=== PATIENT | male | born 1955 | race African-American/Black ===

== ENCOUNTER 2017-10-07 22:11 | Inpatient (IN) | payer OTHER, MEDICAID, MEDICARE ==
[2017-10-07] MEDS ORDERED: SODIUM CHLORIDE 0.9% FLUSH 10 ML FLUSH IVF (23:30)
[2017-10-08] MEDS: SODIUM CHLOR 0.9% 1000 ML INJ 1,000 ML IV ×3 (00:19→23:25)
[2017-10-08] MEDS: ACETAMINOPHEN 325 MG TAB PO ×2 (00:20→10:26)
[2017-10-08] MEDS: cefTRIAXone INJ 1,000 MG in SODIUM CHLORIDE 0.9% INJ 100 ML IV (00:20)
[2017-10-08 00:34] LABS: AUTOMATED NEUTROPHIL # 5.5 TH/MM3 (1.8-7.7); BASOPHIL % 0.4 % (0.0-2.0); EOSINOPHIL % 0.2 % (0.0-4.0); HEMATOCRIT 43.3 % (39.0-51.0); HEMO FLAGS DIFF FINAL; LYMPH % 11.7 % (9.0-44.0); LYMPHOCYTE # 0.9 TH/MM3 (1.0-4.8); MEAN CORPUSCULAR HEMOGLOBIN 28.5 PG (27.0-34.0); MEAN CORPUSCULAR HGB CONC 32.4 % (32.0-36.0); MEAN PLATELET VOLUME 9.7 FL (7.0-11.0); MONOCYTE # 0.9 TH/MM3 (0-0.9); NEUT % 75.7 % (16.0-70.0); PLATELET COUNT 150 TH/MM3 (150-450); RED BLOOD COUNT 4.92 MIL/MM3 (4.50-5.90); WHITE BLOOD COUNT 7.3 TH/MM3 (4.0-11.0)
[2017-10-08 00:45] LABS: ANION GAP 6 MEQ/L (5-15); BICARBONATE 27.9 MEQ/L (21.0-32.0); BLOOD UREA NITROGEN 18 MG/DL (7-18); CALCIUM 8.5 MG/DL (8.5-10.1); CHLORIDE 104 MEQ/L (98-107); GLOMERULAR FILTRATION RATE 30 ML/MIN (>89); GLUCOSE,RANDOM 102 MG/DL (74-106); POTASSIUM 3.9 MEQ/L (3.5-5.1); SODIUM (NA) 138 MEQ/L (136-145)
[2017-10-08] MEDS: AZITHROMYCIN INJ 500 MG in SODIUM CHLOR 0.9% 250 ML INJ 250 ML IV (01:25)
[2017-10-08] MEDS ORDERED: SENNOSIDES 8.6 MG TAB PO (01:30)
[2017-10-08] MEDS ORDERED: BISACODYL 10 MG SUPP RECTAL (01:30)
[2017-10-08] MEDS ORDERED: RESP: ALBUTEROL 2.5 MG/IPRATROPIUM 0.5 MG NEB (PRN) NEB (01:30)
[2017-10-08] MEDS ORDERED: SODIUM CHLORIDE 0.9% FLUSH 10 ML FLUSH IV FLUSH (01:30)
[2017-10-08] MEDS ORDERED: ONDANSETRON HCL 4 MG/2 ML VIAL IVP (01:30)
[2017-10-08] MEDS ORDERED: NALOXONE HCL 0.4 MG/ML AMP IV PUSH (01:30)
[2017-10-08] MEDS: OSELTAMIVIR PHOSPHATE 75 MG CAP PO ×3 (01:56→19:47)
[2017-10-08] MEDS: RESP: ALBUTEROL 2.5 MG/IPRATROPIUM 0.5 MG NEB (SCH) NEB ×4 (04:40→21:46)
[2017-10-08] MEDS: SODIUM CHLORIDE 0.9% FLUSH 10 ML FLUSH IV FLUSH ×2 (08:46→19:46)
[2017-10-08] MEDS: ATENOLOL 25 MG TAB PO (08:46)
[2017-10-08] MEDS: LISINOPRIL 10 MG TAB PO (08:46)
[2017-10-08] MEDS: METHOCARBAMOL 500 MG TAB PO ×4 (08:46→19:47)
[2017-10-08] MEDS ORDERED: BACLOFEN 10 MG TAB PO (09:00)
[2017-10-08] MEDS ORDERED: AZITHROMYCIN 250 MG TAB PO (09:15)
[2017-10-08] MEDS ORDERED: AZITHROMYCIN INJ 500 MG in SODIUM CHLOR 0.9% 250 ML INJ 250 ML IV (09:15)
[2017-10-08] MEDS: LINEZOLID 600 MG PREMIX 300 ML IV ×2 (10:27→19:46)
[2017-10-08] MEDS: traMADol HCL 50 MG TAB PO ×2 (10:27→18:43)
[2017-10-08] MEDS: AZITHROMYCIN INJ 250 MG in SODIUM CHLOR 0.9% 250 ML INJ 250 ML IV (10:28)
[2017-10-08] MEDS ORDERED: LINEZOLID 600 MG TAB PO ×2 (13:00→21:00)
[2017-10-08] MEDS: HEPARIN SODIUM - SQ 10,000 UNITS/ML VIAL SQ (19:47)
[2017-10-09] MEDS ORDERED: cefTRIAXone INJ 1,000 MG in SODIUM CHLORIDE 0.9% INJ 100 ML IV (00:30)
[2017-10-09] MEDS ORDERED: AZITHROMYCIN INJ 250 MG in SODIUM CHLOR 0.9% 250 ML INJ 250 ML IV (01:30)
[2017-10-09] MEDS: RESP: ALBUTEROL 2.5 MG/IPRATROPIUM 0.5 MG NEB (SCH) NEB ×4 (04:01→21:54)
[2017-10-09 08:17] LABS: AUTOMATED NEUTROPHIL # 4.5 TH/MM3 (1.8-7.7); BASOPHIL % 0.4 % (0.0-2.0); EOSINOPHIL % 0.3 % (0.0-4.0); HEMATOCRIT 36.9 % (39.0-51.0); HEMO FLAGS DIFF FINAL; HEMOGLOBIN 11.9 GM/DL (13.0-17.0); LYMPH % 20.9 % (9.0-44.0); LYMPHOCYTE # 1.4 TH/MM3 (1.0-4.8); MEAN CELL VOLUME 88.1 FL (80.0-100.0); MEAN CORPUSCULAR HEMOGLOBIN 28.3 PG (27.0-34.0); MEAN CORPUSCULAR HGB CONC 32.1 % (32.0-36.0); MEAN PLATELET VOLUME 9.7 FL (7.0-11.0); MONO % 10.4 % (0.0-8.0); MONOCYTE # 0.7 TH/MM3 (0-0.9); PLATELET COUNT 116 TH/MM3 (150-450); RED BLOOD COUNT 4.19 MIL/MM3 (4.50-5.90); RED CELL DISTRIBUTION WIDTH 14.2 % (11.6-17.2); WHITE BLOOD COUNT 6.6 TH/MM3 (4.0-11.0)
[2017-10-09 08:54] LABS: ANION GAP 8 MEQ/L (5-15); BICARBONATE 24.7 MEQ/L (21.0-32.0); BLOOD UREA NITROGEN 15 MG/DL (7-18); CALCIUM 7.9 MG/DL (8.5-10.1); CHLORIDE 106 MEQ/L (98-107); CREATININE 2.08 MG/DL (0.60-1.30); GLOMERULAR FILTRATION RATE 39 ML/MIN (>89); GLUCOSE,RANDOM 80 MG/DL (74-106); POTASSIUM 3.6 MEQ/L (3.5-5.1); SODIUM (NA) 139 MEQ/L (136-145)
[2017-10-09] MEDS: SODIUM CHLORIDE 0.9% FLUSH 10 ML FLUSH IV FLUSH ×2 (09:00→21:52)
[2017-10-09] MEDS ORDERED: AZITHROMYCIN 250 MG TAB PO (09:00)
[2017-10-09] MEDS ORDERED: Vancomycin Consult Pharmacy 1 EA OTHER (09:15)
[2017-10-09] MEDS: METHOCARBAMOL 500 MG TAB PO ×4 (10:12→21:47)
[2017-10-09] MEDS: HEPARIN SODIUM - SQ 10,000 UNITS/ML VIAL SQ ×2 (10:12→21:48)
[2017-10-09] MEDS: LISINOPRIL 10 MG TAB PO (10:12)
[2017-10-09] MEDS: OSELTAMIVIR PHOSPHATE 75 MG CAP PO ×2 (10:12→21:47)
[2017-10-09] MEDS: AZITHROMYCIN INJ 500 MG in SODIUM CHLOR 0.9% 250 ML INJ 250 ML IV (10:12)
[2017-10-09] MEDS: SODIUM CHLOR 0.9% 1000 ML INJ 1,000 ML IV (10:13)
[2017-10-09] MEDS: ATENOLOL 25 MG TAB PO (10:13)
[2017-10-09] MEDS: cefTRIAXone INJ 2,000 MG in SODIUM CHLORIDE 0.9% INJ 100 ML IV (18:00)
[2017-10-09] MEDS ORDERED: LINEZOLID 600 MG PREMIX 300 ML IV (21:00)
[2017-10-09] MEDS: ACETAMINOPHEN/HYDROcodone 325 MG/5 MG TAB PO (21:51)
[2017-10-10] MEDS: RESP: ALBUTEROL 2.5 MG/IPRATROPIUM 0.5 MG NEB (SCH) NEB ×4 (03:03→20:54)
[2017-10-10] MEDS: SODIUM CHLOR 0.9% 1000 ML INJ 1,000 ML IV (03:15)
[2017-10-10] MEDS: METHOCARBAMOL 500 MG TAB PO ×4 (09:08→21:10)
[2017-10-10] MEDS: OSELTAMIVIR PHOSPHATE 75 MG CAP PO ×2 (09:08→21:10)
[2017-10-10] MEDS: ACETAMINOPHEN/HYDROcodone 325 MG/5 MG TAB PO ×2 (09:09→21:17)
[2017-10-10] MEDS: ATENOLOL 25 MG TAB PO (09:09)
[2017-10-10] MEDS: LISINOPRIL 10 MG TAB PO (09:09)
[2017-10-10] MEDS: HEPARIN SODIUM - SQ 10,000 UNITS/ML VIAL SQ ×2 (09:09→21:11)
[2017-10-10] MEDS: SODIUM CHLORIDE 0.9% FLUSH 10 ML FLUSH IV FLUSH ×2 (09:09→21:11)
[2017-10-10] MEDS: AZITHROMYCIN INJ 500 MG in SODIUM CHLOR 0.9% 250 ML INJ 250 ML IV (10:42)
[2017-10-10] MEDS: cefTRIAXone INJ 2,000 MG in SODIUM CHLORIDE 0.9% INJ 100 ML IV (17:31)
[2017-10-11] MEDS: RESP: ALBUTEROL 2.5 MG/IPRATROPIUM 0.5 MG NEB (SCH) NEB ×2 (03:29→09:40)
[2017-10-11] MEDS ORDERED: traMADol HCL 50 MG TAB PO (09:30)
[2017-10-11] MEDS ORDERED: ACETAMINOPHEN/CODEINE 300 MG/30 MG TAB PO (09:30)
[2017-10-11] MEDS: SODIUM CHLORIDE 0.9% FLUSH 10 ML FLUSH IV FLUSH (09:45)
[2017-10-11] MEDS: OSELTAMIVIR PHOSPHATE 75 MG CAP PO (09:46)
[2017-10-11] MEDS: ACETAMINOPHEN/HYDROcodone 325 MG/5 MG TAB PO (09:46)
[2017-10-11] MEDS: METHOCARBAMOL 500 MG TAB PO (09:46)
[2017-10-11] MEDS: HEPARIN SODIUM - SQ 10,000 UNITS/ML VIAL SQ (09:46)
[2017-10-11] MEDS: ATENOLOL 25 MG TAB PO (09:46)
[2017-10-11] MEDS: LISINOPRIL 10 MG TAB PO (09:46)
[2017-10-11] MEDS: AZITHROMYCIN INJ 500 MG in SODIUM CHLOR 0.9% 250 ML INJ 250 ML IV (09:46)
== END 2017-10-11 11:36 | disposition home or self-care (01) | DRG 871 ==
LOC: NEPD 22:11 → NEDA 10-08 01:30 → N07A 10-08 02:23
DX: A41.9 Sepsis, unspecified organism (principal); J10.00 Influenza due to other identified influenza virus with unspecified type of pneumonia; N17.9 Acute kidney failure, unspecified; N18.3 Chronic kidney disease, stage 3 (moderate); J15.9 Unspecified bacterial pneumonia; G89.29 Other chronic pain; B95.5 Unspecified streptococcus as the cause of diseases classified elsewhere; I12.9 Hypertensive chronic kidney disease with stage 1 through stage 4 chronic kidney disease, or unspecified chronic kidney disease; K21.9 Gastro-esophageal reflux disease without esophagitis; Z96.641 Presence of right artificial hip joint; M10.9 Gout, unspecified; M19.90 Unspecified osteoarthritis, unspecified site; M54.9 Dorsalgia, unspecified; R00.0 Tachycardia, unspecified; R06.82 Tachypnea, not elsewhere classified; Z90.5 Acquired absence of kidney; Z85.528 Personal history of other malignant neoplasm of kidney
CPT/HCPCS: 71045; 80048; 83605; 85025; 87040; 87070; 87077; 87186; 87205; 87804; 87804-59; 93306; 94640; 94664; 96365; 96375; 97110-GP; 97116-GP; 97162-GP; 99285-25

== ENCOUNTER 2017-12-11 15:40 | Emergency (ER) | payer OTHER, MEDICAID ==
[~2017-12-11] VITALS: Ht 185.4 cm; Wt 85.0 kg
[~2017-12-11 15:40] MED LIST: AMLO5TAB2 PO; ATEN25TA PO; LEVA750T9 PO; METH500T3 PO; OSEL75 PO; TYLETAB34 PO
[2017-12-11 15:59] VITALS: BP 146/94; PULSE 66; RESP 18; TEMP 97.6; O2SAT 100
--- NOTE | 2017-12-11 16:44 | RADRPT ---
EXAM DATE/TIME: 12/11/2017 16:27 [place] COMPARISON: No previous studies available for comparison. INDICATIONS : Right hip pain. No prior trauma. MEDICAL HISTORY : None. SURGICAL HISTORY : Total right hip. ENCOUNTER: Initial ACUITY: 1 day PAIN SCORE: 10/10 LOCATION: Right hip. FINDINGS: AP and oblique views the right hip were obtained as well as an AP view of the pelvis. The patient is status post right hip arthroplasty. Femoral and acetabular components are intact. There is no acute f racture or evidence of loosening. There are degenerative changes in the left hip with joint space los s and sclerosis as well as mild spurring. The pubic rami and sacrum are intact. The soft tissues appe ar unremarkable. CONCLUSION: 1. Status post right hip arthroplasty with no evidence of fracture or loosening. 2. Mild to moderate osteoarthritic changes in the left hip. Vineet Cr MD on December 11, 2017 at 16:40 Board Certified Radiologist. This report was verified electronically.
[2017-12-11 17:07] LABS: BASOPHIL % 0.6 % (0.0-2.0); EOSINOPHIL # 0.1 TH/MM3 (0-0.4); EOSINOPHIL % 2.9 % (0.0-4.0); HEMATOCRIT 45.1 % (39.0-51.0); HEMOGLOBIN 14.8 GM/DL (13.0-17.0); LYMPH % 40.3 % (9.0-44.0); LYMPHOCYTE # 1.7 TH/MM3 (1.0-4.8); MEAN CELL VOLUME 86.9 FL (80.0-100.0); MEAN CORPUSCULAR HEMOGLOBIN 28.4 PG (27.0-34.0); MEAN CORPUSCULAR HGB CONC 32.7 % (32.0-36.0); MEAN PLATELET VOLUME 9.3 FL (7.0-11.0); MONO % 8.3 % (0.0-8.0); MONOCYTE # 0.4 TH/MM3 (0-0.9); NEUT % 47.9 % (16.0-70.0); PLATELET COUNT 168 TH/MM3 (150-450); WHITE BLOOD COUNT 4.2 TH/MM3 (4.0-11.0)
[2017-12-11 17:37] LABS: ALKALINE PHOSPHATASE 71 U/L (45-117); ALT (GPT) 34 U/L (12-78); C-REACTIVE PROTEIN LESS THAN 0.29 MG/DL (0.00-0.30); TOTAL BILIRUBIN ADULT 0.3 MG/DL (0.2-1.0); TOTAL PROTEIN 7.7 GM/DL (6.4-8.2)
[2017-12-11 17:39] LABS: ALBUMIN 3.4 GM/DL (3.4-5.0); AST (GOT) 29 U/L (15-37); BICARBONATE 28.3 MEQ/L (21.0-32.0); BLOOD UREA NITROGEN 16 MG/DL (7-18); CHLORIDE 106 MEQ/L (98-107); CREATININE 2.14 MG/DL (0.60-1.30); GLOMERULAR FILTRATION RATE 38 ML/MIN (>89); GLUCOSE,RANDOM 79 MG/DL (74-106); SODIUM (NA) 140 MEQ/L (136-145)
[2017-12-11] MEDS ORDERED: NORC5TAB PO (19:44)
[2017-12-11] MEDS ORDERED: ACETAMINOPHEN/HYDROcodone 325 MG/5 MG TAB PO ONE (19:45)
--- NOTE | 2017-12-11 19:53 | PD ---
HPI Chief Complaint: Hip Injury Time Seen by Provider: 19:38 Travel History International Travel<30 days: No Contact w/Intl Traveler<30days: No Traveled to known affect area: No History of Present Illness HPI 62-year-old white male presents emergency department with complaints of progressively worsening right hip pain 2 months. He had a right hip replacement by Dr. Burns. He has a $90 balance and he will not see him unless he pays at all. Patient reports having x-ray done approximately 1 month ago which did not show anything acute. He has been seen by his physician at that time and has not been seen since then. Reports worsening pain over the last week. He has to use crutches to ambulate. He has had no trauma. No focal numbness, tingling. He states that he feels weak due to pain. Worse with movement. No alleviating factors. PFSH Past Medical History Arthritis: Yes Cancer: Yes Cardiovascular Problems: Yes Diabetes: No Endocrine: No Gout: Yes Genitourinary: No Hepatitis: No Hiatal Hernia: No Hypertension: Yes Immune Disorder: No Implanted Vascular Access Dvce: No Musculoskeletal: Yes Neurologic: No Psychiatric: No Reproductive: No Respiratory: No Immunizations Current: Yes Radiation Therapy: No Thyroid Disease: No Tetanus Vaccination: Unknown Influenza Vaccination: Yes Past Surgical History Abdominal Surgery: No AICD: No Genitourinary Surgery: Yes (right kidney removed) Joint Replacement: Yes (right hip) Pacemaker: No Other Surgery: Yes (LEFT WRIST CYST REMOVED) Social History Alcohol Use: Yes (OCCASIONALLY ) Tobacco Use: No Substance Use: No Allergies-Medications (Allergen,Severity, Reaction): Coded Allergies: No Known Allergies (Verified Allergy, Unknown, 12/11/17) Reported Meds & Prescriptions Reported Meds & Active Scripts Active Bowler (Hydrocodone-Acetaminophen) 5 Mg-325 Mg Tab 1 Tab PO Q6H PRN 5 Days Amlodipine (Amlodipine Besylate) 5 Mg Tab 5 Mg PO DAILY Tylenol-Codeine #3 (Acetaminophen-Codeine) 300-30 mg Tab 1 Tab PO Q6H PRN Reported Atenolol 25 Mg Tab 25 Mg PO DAILY Methocarbamol 500 Mg Tab 500 Mg PO QID Review of Systems Except as stated in HPI: all other systems reviewed are Neg Physical Exam Narrative GENERAL: Well-developed, well-nourished in no acute distress. Nontoxic appearing. HEAD: Normocephalic, atraumatic. EYES: Pupils equal round and reactive. Extraocular motions intact. No scleral icterus. No injection or drainage. ENT: TMs clear without erythema. The external auditory canals clear. Nose: clear . Posterior pharynx is pink and moist. No tonsillar edema or exudate. Uvula midline. Airway patent. NECK: Trachea midline.Supple, nontender, moves head freely. No central bony tenderness or spasm. CARDIOVASCULAR: Regular rate and rhythm without murmurs, gallops, or rubs. RESPIRATORY: Clear to auscultation. Breath sounds equal bilaterally. No wheezes , rales, or rhonchi. GASTROINTESTINAL: Abdomen soft, non-tender, nondistended. No hepato-splenomegaly , or palpable masses. No guarding. EXTREMITIES: No clubbing, cyanosis, or edema. Examination of the right lower extremity reveals no tenderness to palpation in the knee, ankle, foot. He has complained of pain over the greater trochanter region of the hip. There is no warmth, erythema or edema. He has pain with extension as well as internal/ external rotation. Patient is able to stand at bedside and take a few steps but causes significant discomfort. He has intact sensation with good distal pulses. Left lower extremity as well as upper extremities are unremarkable. Data Data Last Documented VS Vital Signs Date Time Temp Pulse Resp B/P (MAP) Pulse Ox O2 Delivery O2 Flow Rate FiO2 12/11/17 15:59 97.6 66 18 146/94 (111) 100 Orders Orders Hip, Uni(Ap&Lat) W Ap Pelvis (12/11/17 ) Complete Blood Count With Diff (12/11/17 16:01) Comprehensive Metabolic Panel (12/11/17 16:01) C-Reactive Protein (Crp) (12/11/17 16:01) Acetamin-Hydrocod 325-5 Mg (Bowler 5-325 (12/11/17 19:45) Ed Discharge Order (12/11/17 19:41) Labs Laboratory Tests Test 12/11/17 16:10 White Blood Count 4.2 TH/MM3 Red Blood Count 5.20 MIL/MM3 Hemoglobin 14.8 GM/DL Hematocrit 45.1 % Mean Corpuscular Volume 86.9 FL Mean Corpuscular Hemoglobin 28.4 PG Mean Corpuscular Hemoglobin Concent 32.7 % Red Cell Distribution Width 14.0 % Platelet Count 168 TH/MM3 Mean Platelet Volume 9.3 FL Neutrophils (%) (Auto) 47.9 % Lymphocytes (%) (Auto) 40.3 % Monocytes (%) (Auto) 8.3 % Eosinophils (%) (Auto) 2.9 % Basophils (%) (Auto) 0.6 % Neutrophils # (Auto) 2.0 TH/MM3 Lymphocytes # (Auto) 1.7 TH/MM3 Monocytes # (Auto) 0.4 TH/MM3 Eosinophils # (Auto) 0.1 TH/MM3 Basophils # (Auto) 0.0 TH/MM3 CBC Comment DIFF FINAL Differential Comment Blood Urea Nitrogen 16 MG/DL Creatinine 2.14 MG/DL Random Glucose 79 MG/DL Total Protein 7.7 GM/DL Albumin 3.4 GM/DL Calcium Level 9.0 MG/DL Alkaline Phosphatase 71 U/L Aspartate Amino Transf (AST/SGOT) 29 U/L Alanine Aminotransferase (ALT/SGPT) 34 U/L Total Bilirubin 0.3 MG/DL Sodium Level 140 MEQ/L Potassium Level 4.1 MEQ/L Chloride Level 106 MEQ/L Carbon Dioxide Level 28.3 MEQ/L Anion Gap 6 MEQ/L Estimat Glomerular Filtration Rate 38 ML/MIN C-Reactive Protein LESS THAN 0.29 MG/DL MDM Medical Decision Making Medical Screen Exam Complete: Yes Emergency Medical Condition: Yes Medical Record Reviewed: Yes Interpretation(s) Right hip: Negative for acute fracture. No loosening of the hardware. Mild to moderate degenerative changes Laboratory Tests Test 12/11/17 16:10 White Blood Count 4.2 TH/MM3 Red Blood Count 5.20 MIL/MM3 Hemoglobin 14.8 GM/DL Hematocrit 45.1 % Mean Corpuscular Volume 86.9 FL Mean Corpuscular Hemoglobin 28.4 PG Mean Corpuscular Hemoglobin Concent 32.7 % Red Cell Distribution Width 14.0 % Platelet Count 168 TH/MM3 Mean Platelet Volume 9.3 FL Neutrophils (%) (Auto) 47.9 % Lymphocytes (%) (Auto) 40.3 % Monocytes (%) (Auto) 8.3 % Eosinophils (%) (Auto) 2.9 % Basophils (%) (Auto) 0.6 % Neutrophils # (Auto) 2.0 TH/MM3 Lymphocytes # (Auto) 1.7 TH/MM3 Monocytes # (Auto) 0.4 TH/MM3 Eosinophils # (Auto) 0.1 TH/MM3 Basophils # (Auto) 0.0 TH/MM3 CBC Comment DIFF FINAL Differential Comment Blood Urea Nitrogen 16 MG/DL Creatinine 2.14 MG/DL Random Glucose 79 MG/DL Total Protein 7.7 GM/DL Albumin 3.4 GM/DL Calcium Level 9.0 MG/DL Alkaline Phosphatase 71 U/L Aspartate Amino Transf (AST/SGOT) 29 U/L Alanine Aminotransferase (ALT/SGPT) 34 U/L Total Bilirubin 0.3 MG/DL Sodium Level 140 MEQ/L Potassium Level 4.1 MEQ/L Chloride Level 106 MEQ/L Carbon Dioxide Level 28.3 MEQ/L Anion Gap 6 MEQ/L Estimat Glomerular Filtration Rate 38 ML/MIN C-Reactive Protein LESS THAN 0.29 MG/DL Differential Diagnosis Differential diagnosis: Fracture, loosening hardware, arthritis, neurovascular Narrative Course Patient was given Bowler 5 mg p.o. This is right hip pain Diagnosis Primary Impression: Chronic right hip pain Patient Instructions: General Instructions, Narcotic given in the ED Additional Instructions: Rest. Ice for the next 3 days followed by heat . NOR Follow-up with a primary care doctor in 2-3 DAYS. Return to the ER for emergencies. Med/Other Pt SpecificInfo: Prescription(s) given Scripts Hydrocodone-Acetaminophen (Bowler) 5 Mg-325 Mg Tab 1 TAB PO Q6H Y for PAIN for 5 Days, #20 TAB 0 Refills Prov: Carlos Samuel MD 12/11/17 Disposition: 01 DISCHARGE HOME Condition: Stable Vernon Lindquist Dec 11, 2017 19:53
[2017-12-11 20:09] VITALS: BP 142/70; TEMP 98
== END 2017-12-11 20:18 | disposition home or self-care (01) ==
LOC: NED 15:40 → NEPD 20:18
DX: M25.551 Pain in right hip (principal); G89.29 Other chronic pain; I10 Essential (primary) hypertension; Z96.641 Presence of right artificial hip joint
CPT/HCPCS: 73502; 80053; 85025; 86140; 99284

== ENCOUNTER 2018-03-20 06:22 | Inpatient (IN) ==
[2018-03-20] MEDS ORDERED: Thrombin Topical Soln 5,000 UNIT Vial TOPICAL ONE ×2 (06:49→10:55)
[2018-03-20] MEDS ORDERED: Gelatin Size 100 Topical Foam ONE ×2 (06:49→10:55)
[2018-03-20] MEDS ORDERED: Bupivacaine/Epinephrine 0.5% Inj 50 ML Vial ONE (06:49)
[2018-03-20] MEDS ORDERED: Vancomycin Inj 1 GM/200 ML PIGGYBACK IV.SIG ONE (07:13)
[2018-03-20] MEDS ORDERED: Dexmedetomidine Inj 200 MCG/2 ML Vial ONE (07:15)
[2018-03-20] MEDS ORDERED: Propofol Inj 500 MG/50 ML Vial ONE (07:16)
[2018-03-20] MEDS ORDERED: HYDROmorphone PF Inj 2 MG/ML Vial ONE ×2 (07:18→15:55)
[2018-03-20] MEDS ORDERED: Sodium Chlor 0.9% Inj 500 ML IV.SIG SCH (08:00)
[2018-03-20] MEDS ORDERED: Chlorhexidine Gluconate 2% 1 Pack (2 Cloths) TOPICAL SCH (08:00)
[2018-03-20] MEDS ORDERED: Metoprolol Tartrate 25 MG Tablet PO SCH (08:00)
[2018-03-20] MEDS ORDERED: Vancomycin Inj 1 GM/200 ML PIGGYBACK IV.SIG SCH (09:00)
[2018-03-20] MEDS ORDERED: Ketamine Inj 500 MG/10 ML Vial ONE (09:09)
--- NOTE | 2018-03-20 11:09 | ECG ---
Date Performed: 03/20/2018 Time Performed: 07:02:47 PTAGE: 62 years EKG: Sinus rhythm MARKED LEFT AXIS DEVIATION NONSPECIFIC T-WAVE ABNORMALITY ABNORMAL ECG left axis deviation is new si nce prior tracing PREVIOUS TRACING : 09/14/2012 09.15 DOCTOR: Yobani Hoffman Interpretating Date/Time 03/20/2018 11:07:43
[2018-03-20] MEDS ORDERED: Succinylcholine Inj 100 MG/5 ML Syringe IV.PUSH ONE (12:00)
[2018-03-20] MEDS ORDERED: Phenylephrine/NS 1000 MCG/10ML Syringe IV.PUSH ONE (12:00)
[2018-03-20] MEDS ORDERED: Lidocaine PF 1% Inj 5 ML Syringe INFILTRATN ONE (12:00)
[2018-03-20] MEDS ORDERED: Glycopyrrolate Inj 1 MG/5 ML Syringe IV.PUSH ONE (12:00)
[2018-03-20] MEDS ORDERED: Bisacodyl 10 MG Supp RECTAL PRN (12:53)
[2018-03-20] MEDS ORDERED: Magnesium Sulfate Inj 2 GM in Sodium Chlor 0.9% Inj 96 ML IV.SIG PRN (12:56)
[2018-03-20] MEDS ORDERED: Potassium Chlor 20 mEq Premix 20 MEQ/100 ML PIGGYBACK IV.SIG PRN (12:56)
[2018-03-20] MEDS ORDERED: Acetaminophen 325 MG Tablet PO PRN (12:56)
[2018-03-20] MEDS ORDERED: Calcium Gluconate Inj 1 GM in Sodium Chlor 0.9% Inj 100 ML IV.SIG PRN (12:56)
[2018-03-20] MEDS ORDERED: Menthol 5.8 MG Lozenge BUCCAL PRN (12:56)
[2018-03-20] MEDS ORDERED: Aluminum/Magnesium/Simethacone Susp 30 ML UDC PO PRN (12:56)
[2018-03-20] MEDS ORDERED: fentaNYL Citrate Inj 100 MCG/2 ML Ampul ONE (13:06)
--- NOTE | 2018-03-20 13:10 | P.OP ---
- Preoperative Diagnosis (1) Cervical stenosis of spinal canal (2) Cervical spondylosis with myelopathy and radiculopathy (3) Cervical disc disease with myelopathy - Postoperative Diagnosis (1) Cervical disc disease with myelopathy (2) Cervical spondylosis with myelopathy and radiculopathy (3) Cervical stenosis of spinal canal Date of procedure: 03/20/18 Procedure: Posterior cervical C2, C3, C4, C5 and C6 autograft fusion; C2-6 decompressive laminectomy; C3-6 lateral mass/facet segmental fixation; microsurgical technique Anesthesia: JOHNNIE Surgeon: Cornelius Rubin MD Carrier Loader: Yumiko Turner Estimated blood loss (mL): 200 Operation and Findings: Following administration of general endotracheal anesthesia with the neck maintained in neutral position in a [place] J collar, patient had a Mata catheter placed with sequential compression devices. Ancef 1 g and Decadron 10 mg was administered intravenously. He was then turned on a prone position on a Solis table and the head secured in a horseshoe headrest and all pressure points adequately padded. Posterior cervical region was then shaved and prepped with Betadine solution and ChloraPrep. Sterile draping undertaken along with Ioban and a midline incision extending from the C2 to the C6 levels was then made after infiltrating the skin was 0.5% Marcaine with epinephrine solution. Intraoperative fluoroscopy used for level confirmation. Retractors were used for exposure after the fascia incised and the muscular attachments to the spinous process and lamina along with the facets detached from C2 to C6 levels bilaterally. Further dissection was undertaken using microtechnique with microscope magnification. I drilled out the lamina at the junction of the facets from C3 to C6 levels bilaterally and an en bloc laminectomy undertaken for decompression the spinal canal. The inferior half of the C2 spinous process and lamina was also resected with a Leksell and Kerrison to decompress the spinal canal and the ligamentum flavum were also resected with Kerrisons. The facets on both sides decorticated with a curette. Subsequently lateral mass fixation undertaken with the [employer] screws with entry point of the midportion of the facet on the right side at the C3, C4, C5 and C6 levels and left side at the C3, C5 and C6 levels. The screw trajectory was lateral and superiorly guided with fluoroscopy also. Screws were then connected with a carter and locked in place with caps. The construct appeared to be secure this point in AP and lateral fossae confirmed good placement and alignment. The decorticated facets were then packed from C2 to C6 levels with the local autograft morselized bone for posterolateral fusion. The area was then copiously irrigated with antibiotic solution and hemostasis achieved with bone wax along with Gelfoam and thrombin. Retractors removed and the muscle and fascia using 2-0 Vicryl interrupted sutures and 3-0 Vicryl subcuticular stitch also placed in an interrupted fashion and final skin closure was with vipul. A sterile dressing was applied and the neck immobilized in a [place] J collar. He was then turned in supine position and extubated and taken to recovery room. There were no intraoperative complications and all sponge and needle count was correct at the end the procedure. Estimated blood loss about 200 cc. Patient did undergo intraoperative neurologic monitoring which remained stable throughout surgery.
[2018-03-20 13:53] LABS: Baso % (Auto) 0.4 % (0.0-2.0); Eos % (Auto) 0.3 % (0.0-4.0); Hematocrit 39.8 % (39.0-51.0); Hemoglobin 12.9 gm/dL (13.0-17.0); Lymph # (Auto) 0.8 th/mm3 (1.0-4.8); Lymph % (Auto) 15.7 % (9.0-44.0); Mean Corpuscular HGB Conc 32.5 % (32.0-36.0); Mean Corpuscular Hemoglobin 28.1 pg (27.0-34.0); Mean Corpuscular Volume 86.4 fL (80.0-100.0); Mean Platelet Volume 8.9 fL (7.0-11.0); Mono # (Auto) 0.1 th/mm3 (0.0-0.9); Mono % (Auto) 1.6 % (0.0-8.0); Neut # (Auto) 4.4 th/mm3 (1.8-7.7); Platelet Count 198 th/mm3 (150-450); Red Cell Distribution Width 14.1 % (11.6-17.2); White Blood Count 5.4 th/mm3 (4.0-11.0)
--- NOTE | 2018-03-20 14:16 | XR ---
EXAM DATE: 03/20/2018 1:52 PM EDT AGE/SEX: 62 years / Male INDICATIONS: C2-C3, C3-C4, C4-C5, C5-C6 laminectomy. Post-op C3-C4, C4-C5, C5-C6 lateral mass fixat ion. CLINICAL DATA: This is the patient's initial encounter. Patient reports that signs and symptoms have been present for 1 day and indicates a pain score of Nonresponsive. MEDICAL/SURGICAL HISTORY: Non-responsive. Non-responsive. COMPARISON: No prior exams available for comparison. FINDINGS: There is posterior fusion from C3 to C7. The vertebral bodies are normal in alignment on the lateral view. CONCLUSION: Postsurgical changes as above. Electronically signed by: Adam Cohn MD 03/20/2018 2:15 PM EDT
[2018-03-20 14:17] LABS: Calcium 8.3 mg/dL (8.5-10.1); Carbon Dioxide 23.7 meq/L (21.0-32.0); Magnesium 2.3 mg/dL (1.5-2.5)
[2018-03-20] MEDS ORDERED: *morphine SULFATE 4 MG/ML PERIprocedure ONLY ONE ×3 (14:40→15:11)
[2018-03-20] MEDS: Morphine Inj 4 MG/ML Vial IV.PUSH PRN ×2 (15:17→22:47)
[2018-03-20] MEDS: Senna/Docusate Sodium 8.6/50 MG Tablet PO SCH (20:49)
[2018-03-20] MEDS ORDERED: Zolpidem Tartrate 5 MG Tablet PO PRN (21:00)
[2018-03-21] MEDS: Morphine Inj 4 MG/ML Vial IV.PUSH PRN ×3 (02:44→17:39)
[2018-03-21] MEDS: Senna/Docusate Sodium 8.6/50 MG Tablet PO SCH ×2 (10:03→20:06)
[2018-03-21] MEDS: Atenolol 25 MG Tablet PO SCH (10:03)
[2018-03-21] MEDS: amLODIPine 5 MG Tablet PO SCH (10:04)
--- NOTE | 2018-03-21 13:33 | P.PNNS ---
Subjective Interval history: 03/21/18: Pt s/p Posterior cervical C2, C3, C4, C5 and C6 autograft fusion; C2-6 decompressive laminectomy; C3-6 lateral mass/facet segmental fixation; microsurgical technique on 03/20/18. He is sitting up in chair eating breakfast. He has incisional pain and right elbow pain but no radiculopathy. He has paresthesias in finger tips of right 1-3 fingers. <Kenneth Connolly - Last Filed: 03/21/18 13:28> Physical Exam Vital signs: Vital Signs 03/20/18 13:30 03/20/18 13:45 03/20/18 14:00 Temperature Pulse Rate 67 67 64 Respiratory Rate 18 12 16 Blood Pressure 116/70 131/78 132/79 Pulse Oximetry 100 100 100 03/20/18 14:30 03/20/18 15:00 03/20/18 16:00 Temperature 97.4 F L Pulse Rate 61 64 59 L Respiratory Rate 16 12 17 Blood Pressure 133/78 131/80 127/78 Pulse Oximetry 99 99 98 03/20/18 17:00 03/20/18 20:00 03/20/18 22:49 Temperature 97.2 F L Pulse Rate 68 65 Respiratory Rate 16 7 L 18 Blood Pressure 145/79 H 159/85 H Pulse Oximetry 99 95 03/20/18 23:38 03/21/18 00:15 03/21/18 01:52 Temperature 98.3 F Pulse Rate 65 Respiratory Rate 18 18 18 Blood Pressure 138/80 Pulse Oximetry 97 03/21/18 03:34 03/21/18 05:00 03/21/18 08:00 Temperature 98.3 F 99.4 F Pulse Rate 84 86 Respiratory Rate 18 17 18 Blood Pressure 132/82 133/77 Pulse Oximetry 98 97 03/21/18 10:03 03/21/18 11:47 Temperature Pulse Rate Respiratory Rate 20 20 Blood Pressure Pulse Oximetry Intake & Output 03/20/18 03/21/18 03/21/18 18:59 06:59 18:59 Intake Total 3896 / 3896 1424 / 1424 Output Total 1250 / 1250 1375 / 1375 Balance 2646 / 2646 49 / 49 Weight 87.4 kg 88.496 kg Intake: IV 256 / 256 944 / 944 NS + KCl 20 mEq Inj 1,000 ML @ 256 / 256 744 / 744 100 mls/hr IV.CONT .Q10H JONATHAN Rx #:[id number] Ancef Inj 1,000 MG In NS Inj 200 / 200 100 ML @ 200 mls/hr IV.SIG Q8H JONATHAN Rx#:[id number] Oral 240 / 240 480 / 480 Anesthesia Amount 3400 / 3400 Output: Urine 50 / 50 Estimated Blood Loss 400 / 400 Urine Amount (Catheter) 800 / 800 1375 / 1375 Indwelling Urethral Catheter 800 / 800 1375 / 1375 Other: # Bowel Movements 0 Weight On Admission 87.4 kg - Constitutional no acute distress - Routine HEENT Exam Head: Present: normocephalic Eye: Present: PERRL - Routine Respiratory Exam Present: CTA bilaterally. Absent: rhonchi, wheezes - Routine Cardiovascular Exam Present: RRR, S1, S2. Absent: murmur - Routine Abdominal Exam Present: soft, normoactive bowel sounds - Routine Extremities Exam Absent: cyanosis - Routine Skin Exam Present: intact (Posterior cervical incision clean and dry without signs of infection.). Absent: cyanosis, erythema - Routine Neurological Exam Present: alert, oriented X3, moving all extremities (some generalized weakness in extremities 4/5.) - Detailed Neurological Exam: Coma Scale Eye Opening: Spontaneous Verbal Response: Oriented Motor Response: Obey commands [place] Coma Scale Total: 15 - Routine Psychiatric Exam Present: normal affect - Urinary Catheter Management Indwelling Urethral Catheter Cath placed during this visit: yes, but has since been removed by the nurse Reason for continuing: Other continuation reason Insertion date: 03/20/18 Removal date: 03/21/18 Removal time: 10:00 <Kenneth Connolly - Last Filed: 03/21/18 13:28> Vital signs: Vital Signs 03/20/18 15:00 03/20/18 16:00 03/20/18 17:00 Temperature 97.4 F L Pulse Rate 64 59 L 68 Respiratory Rate 12 17 16 Blood Pressure 131/80 127/78 145/79 H Pulse Oximetry 99 98 99 03/20/18 20:00 03/20/18 22:49 03/20/18 23:38 Temperature 97.2 F L 98.3 F Pulse Rate 65 65 Respiratory Rate 7 L 18 18 Blood Pressure 159/85 H 138/80 Pulse Oximetry 95 97 03/21/18 00:15 03/21/18 01:52 03/21/18 03:34 Temperature 98.3 F Pulse Rate 84 Respiratory Rate 18 18 18 Blood Pressure 132/82 Pulse Oximetry 98 03/21/18 05:00 03/21/18 08:00 03/21/18 10:03 Temperature 99.4 F Pulse Rate 86 Respiratory Rate 17 18 20 Blood Pressure 133/77 Pulse Oximetry 97 03/21/18 11:47 Temperature Pulse Rate Respiratory Rate 20 Blood Pressure Pulse Oximetry Intake & Output 03/20/18 03/21/18 03/21/18 18:59 06:59 18:59 Intake Total 3896 / 3896 1424 / 1424 Output Total 1250 / 1250 1375 / 1375 Balance 2646 / 2646 49 / 49 Weight 87.4 kg 88.496 kg Intake: IV 256 / 256 944 / 944 NS + KCl 20 mEq Inj 1,000 ML @ 256 / 256 744 / 744 100 mls/hr IV.CONT .Q10H JONATHAN Rx #:[id number] Ancef Inj 1,000 MG In NS Inj 200 / 200 100 ML @ 200 mls/hr IV.SIG Q8H JONATHAN Rx#:[id number] Oral 240 / 240 480 / 480 Anesthesia Amount 3400 / 3400 Output: Urine 50 / 50 Estimated Blood Loss 400 / 400 Urine Amount (Catheter) 800 / 800 1375 / 1375 Indwelling Urethral Catheter 800 / 800 1375 / 1375 Other: # Bowel Movements 0 Weight On Admission 87.4 kg - Urinary Catheter Management Indwelling Urethral Catheter Cath placed during this visit: no <Cornelius Rubin - Last Filed: 03/21/18 14:46> Assessment and Plan - Assessment (1) Cervical stenosis of spinal canal Code(s): M48.02 - Spinal stenosis, cervical region Status: Acute (2) Cervical spondylosis with myelopathy and radiculopathy Code(s): M47.12 - Other spondylosis with myelopathy, cervical region; M47.22 - Other spondylosis with radiculopathy, cervical region Status: Acute (3) Cervical disc disease with myelopathy Code(s): M50.00 - Cervical disc disorder with myelopathy, unspecified cervical region Status: Acute - Plan Pt s/p Posterior cervical C2, C3, C4, C5 and C6 autograft fusion; C2-6 decompressive laminectomy; C3-6 lateral mass/facet segmental fixation; microsurgical technique on 03/20/18. Continue to get oob and ambulate. Continue with pain control. Continue with current care. <Kenneth Connolly - Last Filed: 03/21/18 13:28> - Attending Attestation The exam, history, and the medical decision-making described in the above note were completed with the assistance of the mid-level provider. I reviewed and agree with the findings presented. I attest that I had a [id number] encounter with the patient on the same day, and personally performed and documented my assessment and findings in the medical record. <Cornelius Rubin - Last Filed: 03/21/18 14:46>
[2018-03-22] MEDS: amLODIPine 5 MG Tablet PO SCH (09:36)
[2018-03-22] MEDS: Senna/Docusate Sodium 8.6/50 MG Tablet PO SCH ×2 (09:36→22:12)
[2018-03-22] MEDS: Atenolol 25 MG Tablet PO SCH (09:36)
[2018-03-22] MEDS: Morphine Inj 4 MG/ML Vial IV.PUSH PRN ×2 (10:42→18:24)
--- NOTE | 2018-03-22 10:59 | P.PNNS ---
Subjective Interval history: 03/22/18: Pt reports he is more painful today in incision and trapezius area. Pt requiring IV Morphine in addition to [place] and Flexeril. No radiculopathy in UEs. Paresthesias reportedly better in 1-3 fingers. <MohsenKenneth - Last Filed: 03/22/18 10:53> Physical Exam Vital signs: Vital Signs 03/21/18 11:47 03/21/18 16:00 03/21/18 16:39 Temperature 98.4 F Pulse Rate Respiratory Rate 20 18 20 Blood Pressure 130/77 Pulse Oximetry 93 L 03/21/18 19:17 03/21/18 20:25 03/21/18 23:21 Temperature 98.5 F 99.3 F Pulse Rate 84 89 Respiratory Rate 20 18 18 Blood Pressure 159/83 H 134/73 Pulse Oximetry 96 97 03/22/18 04:02 03/22/18 08:00 Temperature 99.4 F 99.2 F Pulse Rate 95 H 99 H Respiratory Rate 18 17 Blood Pressure 135/70 139/65 Pulse Oximetry 98 95 Intake & Output 03/21/18 03/22/18 03/22/18 18:59 06:59 18:59 Intake Total 480 / 480 Output Total 500 / 500 850 / 850 Balance -500 / -500 -370 / -370 Weight 88.49 kg Intake: Oral 480 / 480 Output: Urine 500 / 500 850 / 850 Other: Date of Last Bowel Movement 03/21/18 03/21/18 # Bowel Movements 0 - Constitutional moderate distress (Related to pain.) - Routine HEENT Exam Head: Present: normocephalic Eye: Present: PERRL. Absent: conjunctival icterus - Routine Respiratory Exam Present: CTA bilaterally. Absent: respiratory distress, rhonchi, wheezes - Routine Cardiovascular Exam Present: RRR, S1, S2. Absent: murmur - Routine Abdominal Exam Present: soft, normoactive bowel sounds. Absent: tenderness, distended - Routine Skin Exam Present: intact. Absent: cyanosis, erythema - Routine Neurological Exam Present: alert, motor deficit (Deltoid bilaterally related to pain.) - Routine Psychiatric Exam Present: normal affect. Absent: agitated - Urinary Catheter Management Indwelling Urethral Catheter Cath placed during this visit: yes, but has since been removed by the nurse Reason for continuing: Other continuation reason Insertion date: 03/20/18 Removal date: 03/21/18 Removal time: 10:00 <Kenneth Connolly - Last Filed: 03/22/18 10:53> Vital signs: Vital Signs 03/21/18 16:00 03/21/18 16:39 03/21/18 19:17 Temperature 98.4 F Pulse Rate Respiratory Rate 18 20 20 Blood Pressure 130/77 Pulse Oximetry 93 L 03/21/18 20:25 03/21/18 23:21 03/22/18 04:02 Temperature 98.5 F 99.3 F 99.4 F Pulse Rate 84 89 95 H Respiratory Rate 18 18 18 Blood Pressure 159/83 H 134/73 135/70 Pulse Oximetry 96 97 98 03/22/18 08:00 03/22/18 12:00 Temperature 99.2 F 98.1 F Pulse Rate 99 H 101 H Respiratory Rate 17 19 Blood Pressure 139/65 136/84 Pulse Oximetry 95 94 L Intake & Output 03/21/18 03/22/18 03/22/18 18:59 06:59 18:59 Intake Total 480 / 480 Output Total 500 / 500 850 / 850 Balance -500 / -500 -370 / -370 Weight 88.49 kg Intake: Oral 480 / 480 Output: Urine 500 / 500 850 / 850 Other: Date of Last Bowel Movement 03/21/18 03/21/18 # Bowel Movements 0 - Urinary Catheter Management Indwelling Urethral Catheter Cath placed during this visit: no <Cornelius Rubin - Last Filed: 03/22/18 13:49> Assessment and Plan - Assessment (1) Cervical stenosis of spinal canal Code(s): M48.02 - Spinal stenosis, cervical region Status: Acute (2) Cervical spondylosis with myelopathy and radiculopathy Code(s): M47.12 - Other spondylosis with myelopathy, cervical region; M47.22 - Other spondylosis with radiculopathy, cervical region Status: Acute (3) Cervical disc disease with myelopathy Code(s): M50.00 - Cervical disc disorder with myelopathy, unspecified cervical region Status: Acute - Plan Pt s/p Posterior cervical C2, C3, C4, C5 and C6 autograft fusion; C2-6 decompressive laminectomy; C3-6 lateral mass/facet segmental fixation; microsurgical technique on 03/20/18. Continue to get oob and ambulate. Continue with pain control. Continue with current care. <Kenneth Connolly - Last Filed: 03/22/18 10:53> - Attending Attestation The exam, history, and the medical decision-making described in the above note were completed with the assistance of the mid-level provider. I reviewed and agree with the findings presented. I attest that I had a [id number] encounter with the patient on the same day, and personally performed and documented my assessment and findings in the medical record. <Cornelius Ruibn - Last Filed: 03/22/18 13:49>
[2018-03-23] MEDS: Morphine Inj 4 MG/ML Vial IV.PUSH PRN ×2 (04:49→09:15)
[2018-03-23] MEDS: Atenolol 25 MG Tablet PO SCH (09:11)
[2018-03-23] MEDS: amLODIPine 5 MG Tablet PO SCH (09:11)
[2018-03-23] MEDS: Senna/Docusate Sodium 8.6/50 MG Tablet PO SCH ×2 (09:11→21:09)
--- NOTE | 2018-03-23 13:26 | P.PNNS ---
Subjective Interval history: Patient complaining of neck pain and increased weakness on the right side. Reports that he is not able to raise the right arm as high as yesterday Physical Exam Vital signs: Vital Signs 03/22/18 16:00 03/22/18 16:57 03/22/18 18:26 Temperature 98.7 F Pulse Rate 93 H Respiratory Rate 18 17 16 Blood Pressure 130/78 Pulse Oximetry 96 03/22/18 20:50 03/22/18 20:54 03/23/18 00:00 Temperature 99.3 F 100.0 F H Pulse Rate 92 H 85 Respiratory Rate 17 18 17 Blood Pressure 130/82 139/74 Pulse Oximetry 96 94 L 03/23/18 04:00 03/23/18 08:00 03/23/18 12:00 Temperature 99.4 F 97.8 F 98.0 F Pulse Rate 80 98 H 99 H Respiratory Rate 18 18 17 Blood Pressure 146/77 H 138/75 132/64 Pulse Oximetry 95 98 96 Intake & Output 03/22/18 03/23/18 03/23/18 18:59 06:59 18:59 Intake Total 700 / 700 480 / 480 Output Total 400 / 400 1025 / 1025 Balance 300 / 300 -545 / -545 Intake: Oral 700 / 700 480 / 480 Output: Urine 400 / 400 1025 / 1025 Other: Date of Last Bowel Movement 03/21/18 03/21/18 03/21/18 # Bowel Movements 0 Narrative: Right-sided weakness which appears increased from yesterday Biceps 23/5, deltoid 2/5, triceps 1-2/5, handgrip 3/5 Right leg 2/5 PT indicates patient was able to stand yesterday and not today - Urinary Catheter Management Indwelling Urethral Catheter Cath placed during this visit: yes, but has since been removed by the nurse Reason for continuing: Other continuation reason Insertion date: 03/20/18 Removal date: 03/21/18 Removal time: 10:00 Assessment and Plan - Assessment (1) Cervical spondylosis with myelopathy and radiculopathy Code(s): M47.12 - Other spondylosis with myelopathy, cervical region; M47.22 - Other spondylosis with radiculopathy, cervical region Status: Acute - Plan Patient is status post cervical laminectomy. Appears to have some increased weakness today. Etiology not clear. Discussed with the nurses and physical therapy Plan we will order urgent MRI for evaluation. Will not transfer to rehab at present Discussed Condition With: Discussed with nurses and physical therapy
--- NOTE | 2018-03-23 18:26 | MR ---
EXAM DATE: 03/23/2018 3:26 PM EDT AGE/SEX: 62 years / Male INDICATIONS: . Right side weakness. CLINICAL DATA: This is the patient's initial encounter. Patient reports that signs and symptoms have been present for 1 day and indicates a pain score of 4/10. MEDICAL/SURGICAL HISTORY: . Renal carcinoma. Nephrectomy, right. COMPARISON: POI, MR CERVICAL SPINE W/O CONTRAST, 02/19/2018. . TECHNIQUE: Multiplanar, multisequence MRI examination of the cervical spine was performed without co ntrast. FINDINGS: ALIGNMENT: Craniocervical and cervical vertebral body alignment are stable compared to the preoperat [place] study.. FACET AND OSSEOUS STRUCTURES: Postsurgical changes are identified. The patient is undergone a air cargo agent ior decompression laminectomy from C2 through C6. Lateral mass fixation rods extending from C3 throug h C6 with multiple anchoring screws are identified. The vertebral bodies is otherwise stable. There is no evidence of compression deformity or bone marro w edema. Significant T2 hyperintensity remains evident throughout the laminectomy site characteristic of react [place] soft tissue changes. A small posterior subcutaneous fluid collection measuring 1.4 x 2.5 cm in size is identified at the C 6 level. INTERVERTEBRAL DISC SPACES: Prominent bony bar is identified at the C2-3 disc interspace. This was seen previously however there is significantly increased compression of the spinal cord compared to the preoperative MRI. There is increasing posterior epidural effacement causing compromise of the central spinal canal. A T2 hypoint ense structure measuring approximately 10 mm is identified which may represent a bony fragment. A prominent posterior bony bar characteristic of a disc osteophyte complex is also noted at the C3-4 level. This is slightly eccentric to the right. Posterior epidural mass effect and effacement from th e postsurgical changes are noted. Increased spinal cord compression with displacement of the CSF surr ounding the spinal cord is noted when compared to the prior study. The C4-5, C5-6, C6-7 and C7-T1 intervertebral disc are unchanged in appearance. There is moderate to severe degenerative disc disease with marginal spondylosis and epidural effacement. NEUROLOGIC STRUCTURES: Significant posterior epidural effacement has developed following surgery. Inc reasing compression of the spinal cord especially at the C2-3 and C3-4 levels. Complete displacement surrounding the spinal cord is demonstrated when compared to the previous exam. Spinal canal caliber returns to normal at approximately the C6 level. Central T2 hyperintensity characteristic of myelomalacia remains evident at C3-4. No other discrete s ignal abnormalities are noted within the spinal cord. CONCLUSION: 1. Status post laminectomy from C2 through C6 with postsurgical changes causing increasing posterior epidural effacement and spinal stenosis. There is worsening spinal cord compression especially at th e C2-3 and C3-4 level. 2. 10 mm T2 hypointense structure in the posterior epidural space at C2-3 which may represent a bony fragment. 3. Posterior subcutaneous fluid collection at the C6 level characteristic of a small seroma or resol ving hematoma. 4. Persistent large bony bars characteristic of disc osteophyte complexes at C2-3 and C3-4 causing c ord effacement. Electronically signed by: Sen Ramos MD 03/23/2018 4:01 PM EDT
--- NOTE | 2018-03-23 21:54 | P.PNNS ---
Subjective Interval history: Patient offers no complaints. He reports he may be somewhat improved Physical Exam Vital signs: Vital Signs 03/23/18 00:00 03/23/18 04:00 03/23/18 08:00 Temperature 100.0 F H 99.4 F 97.8 F Pulse Rate 85 80 98 H Respiratory Rate 17 18 18 Blood Pressure 139/74 146/77 H 138/75 Pulse Oximetry 94 L 95 98 03/23/18 12:00 03/23/18 16:00 Temperature 98.0 F 98.2 F Pulse Rate 99 H 99 H Respiratory Rate 17 18 Blood Pressure 132/64 130/84 Pulse Oximetry 96 95 Intake & Output 03/23/18 03/23/18 03/24/18 06:59 18:59 06:59 Intake Total 480 / 480 680 / 680 Output Total 1025 / 1025 500 / 500 Balance -545 / -545 180 / 180 Intake: Oral 480 / 480 680 / 680 Output: Urine 1025 / 1025 500 / 500 Other: Date of Last Bowel Movement 03/21/18 03/21/18 # Bowel Movements 0 Narrative: Alert and awake follows commands well Right hemiparesis Biceps somewhat improved 3/5 Triceps 2-3+/5 Handgrip unchanged from previous Right leg improved at about 3/5 Wound is not tense MRI reviewed evidence of compression posteriorly especially towards the right side - Urinary Catheter Management Indwelling Urethral Catheter Cath placed during this visit: yes, but has since been removed by the nurse Reason for continuing: Other continuation reason Insertion date: 03/20/18 Removal date: 03/21/18 Removal time: 10:00 Assessment and Plan - Assessment (1) Cervical spondylosis with myelopathy and radiculopathy Code(s): M47.12 - Other spondylosis with myelopathy, cervical region; M47.22 - Other spondylosis with radiculopathy, cervical region Status: Acute - Plan Patient is status post cervical laminectomy. Have reviewed MRI which shows some posterior compression especially towards the right. Dr. Bueno also reviewed the MRI. Discussed the findings of MRI with patient and . Presented options for care which include returning the patient to the operating room for exploration and possible drainage or continued observation in the intensive care unit. Have explained to patient that surgery has the risk of worsening condition. Patient and have chosen to be observed for tonight with reevaluation in the morning. Have asked the nurses to report any changes in his status at which time he may need urgent surgery. Plan is to transfer patient to intensive care unit with close neurological observation. We discussed possible surgery with patient and
--- NOTE | 2018-03-23 22:07 | P.CONCC ---
History of Present Illness Primary Care Provider: Moose Ely MD Family Provider: Moose Ely MD History of Present Illness: 62-year-old very pleasant gentleman who underwent March posterior cervical C2 , C3, C4, C5 and C6 autograft fusion; C2-6 decompressive laminectomy; C3-6 lateral mass/facet segmental fixation. In the morning he felt more weak on the right side. The MRI of the C-spine shows increasing posterior epidural effacement and spinal stenosis. There is worsening spinal cord compression especially at the C2-3 and C3-4 level. This was discussed with the patient by neurosurgeon, with the decision to proceed with conservative management and transfer to ICU and observation. Review of Systems Constitutional: Reports weakness, Denies anorexia, Denies body ache(s), Denies chills, Denies daytime sleepiness, Denies excessive sweating, Denies fatigue, Denies fever(s), Denies headache(s), Denies increased appetite, Denies lack of energy, Denies malaise, Denies night sweats, Denies weight gain, Denies weight loss, Denies other Eyes: Denies blind spots, Denies blurry vision, Denies bulging eyes, Denies change in vision, Denies double vision, Denies discharge, Denies dry eyes, Denies floaters, Denies irritation, Denies itchy eyes, Denies loss of vision, Denies pain, Denies requires corrective lenses, Denies sensitivity to light, Denies other Ears, Nose, Mouth, and Throat: Denies abnormal hearing, Denies bleeding gums, Denies bad breath, Denies change in voice, Denies dental pain, Denies difficulty swallowing, Denies dizziness, Denies dry mouth, Denies ear discharge , Denies ear pain, Denies facial pain, Denies headache(s), Denies hearing loss, Denies hoarseness, Denies lip swelling, Denies nosebleed, Denies mouth lesions, Denies mouth pain, Denies nasal congestion, Denies nasal discharge, Denies nasal obstruction, Denies nasal trauma, Denies neck lump, Denies neck pain, Denies nose pain, Denies pain with swallowing, Denies poor balance, Denies post nasal drip, Denies ringing in the ears, Denies sinus pain, Denies sinus pressure , Denies sore throat, Denies throat swelling, Denies tongue swelling, Denies other Cardiovascular: Denies chest pain, Denies chest pain at rest, Denies chest pain with activity, Denies excessive sweating, Denies fainting, Denies fast heart rate, Denies foot swelling, Denies generalized swelling, Denies irregular heart rhythm, Denies leg pain with activity, Denies leg sores, Denies leg swelling, Denies lightheadedness, Denies radiating jaw, neck or arm pain, Denies rapid, pounding, or irregular heartbeat, Denies shortness of breath, Denies shortness of breath with activity, Denies shortness of breath when lying down, Denies shortness of breath causing sudden awakening, Denies slow heart rate, Denies other Respiratory: Denies change in phlegm color, Denies chest congestion, Denies cough, Denies coughing up blood, Denies excessive phlegm production, Denies pain on inspiration, Denies pain with cough, Denies shortness of breath, Denies shortness of breath with activity, Denies snoring, Denies stridor, Denies wheezing, Denies other Gastrointestinal: Denies abdominal pain, Denies belching, Denies black, tarry stools, Denies bloating, Denies bright, red blood in stools, Denies change in bowel habits, Denies constant urge to pass stool, Denies change in stools, Denies coffee ground vomit, Denies constipation, Denies cramping, Denies difficulty swallowing, Denies excessive passing of gas, Denies feeling full early, Denies heartburn, Denies incontinent of stools, Denies loose stools, Denies nausea, Denies pain with swallowing, Denies vomiting, Denies vomiting blood, Denies other Genitourinary: Denies blood in semen, Denies blood in urine, Denies decreased urination, Denies difficulty urinating, Denies difficulty with ejaculations, Denies erectile dysfunction, Denies genital lesions, Denies genital pain, Denies painful urination, Denies side pain, Denies frequent nighttime urination , Denies painful ejaculations, Denies penile discharge, Denies scrotal swelling , Denies testicle lump, Denies testicle pain, Denies urinary frequency, Denies urinary hesitancy, Denies urinary incontinence, Denies urinary urgency, Denies other Musculoskeletal: Reports muscle weakness, Denies abnormal walking, Denies back pain, Denies body aches, Denies decreased muscle mass, Denies deformity, Denies joint pain, Denies joint swelling, Denies limited joint movement, Denies loss of height, Denies muscle cramps, Denies neck pain, Denies numbness, Denies radiating pain into limb, Denies stiffness, Denies tingling, Denies other Skin/Breast: Denies acne, Denies bleeding lesions, Denies boil, Denies breast swelling, Denies breast skin changes, Denies breast pain, Denies breast lump, Denies change in breast shape, Denies change in hair, Denies change in skin color, Denies changing lesions, Denies dry skin, Denies excessive hair growth, Denies hair loss, Denies itching, Denies lesions, Denies nail changes, Denies new lesions, Denies nipple discharge, Denies non-healing lesions, Denies redness , Denies sensitivity to light, Denies rash, Denies skin pain, Denies skin ulcer , Denies sores, Denies stretch rosales, Denies unusual bruising, Denies wounds, Denies yellowing of the skin, Denies other Neurologic: Reports weakness, Denies abnormal hearing, Denies abnormal movements , Denies abnormal speech, Denies abnormal walking, Denies behavioral changes, Denies burning sensations, Denies confusion, Denies dizziness, Denies fainting, Denies frequent falls, Denies headache(s), Denies lack of coordination, Denies localized weakness, Denies loss of vision, Denies memory loss, Denies numbness, Denies other visual disturbances, Denies radiating pain, Denies restless legs, Denies convulsions, Denies seizure-like activity, Denies sensory deficit, Denies tingling, Denies tingling/numbness/burning sensations, Denies tremor(s), Denies unsteadiness, Denies other Psychiatric: Denies abnormal sleep pattern, Denies anxiety, Denies behavioral changes, Denies change in appetite, Denies change in sex drive, Denies confusion , Denies depression, Denies difficulty concentrating, Denies hearing things others do not hear, Denies hopelessness, Denies irritability, Denies lack of enjoyment, Denies memory loss, Denies mood swings, Denies panic attacks, Denies paranoia, Denies seeing things others do not see, Denies sensing things others do not sense, Denies tactile hallucinations, Denies thoughts of hurting/killing others, Denies thoughts of hurting/killing yourself, Denies other Endocrine: Denies cold intolerance, Denies excessive sweating, Denies flushing, Denies heat intolerance, Denies increased hunger, Denies increased thirst, Denies increased urination, Denies rapid, pounding, or irregular heartbeat, Denies other Hematologic/Lymphatic: Denies easy bleeding, Denies easy bruising, Denies enlarged lymph nodes, Denies other Allergic/Immunologic: Denies GI upset with certain foods, Denies hives, Denies itchy eyes, Denies lip swelling, Denies seasonal runny nose, Denies throat swelling, Denies tongue swelling, Denies wheezing, Denies other PMFSH - History History Provided By: Patient - Medical History Medical History: Medical History (Last Reviewed 03/21/18 @ 15:36 by Josefa Dixon, PT) Hx of renal cell carcinoma (Acute) History of unilateral nephrectomy (Acute) Hypertension (Acute) Numbness and tingling in right hand (Acute) Chronic neck and back pain (Acute) - Surgical History Surgical History: Surgical History (Last Reviewed 03/21/18 @ 15:36 by Josefa Dixon, PT) Hx of removal of cyst (Acute) History of total right hip arthroplasty (Acute) - Tobacco History Second Hand Smoke Exposure: Yes Smoking Status: Never smoker - Alcohol History How Often Do You Have a Drink Containing Alcohol: 2 to 4 times a month - Substance Use History Substance History: No History of Abuse Medications and Allergies Active Medications: Active Medications Acetaminophen (Tylenol) 650 mg PO Q4H PRN PRN Reason: TEMPERATURE > 101.5 F Last Admin: 03/23/18 00:17 Dose: 650 mg Hydrocodone Bitart/Acetaminophen ([place] 10/325) 1 tab PO Q4H PRN PRN Reason: Pain Scale 1 To 5 Last Admin: 03/22/18 20:54 Dose: 1 tab Hydrocodone Bitart/Acetaminophen ([place] 10/325) 2 tab PO Q4H PRN PRN Reason: PAIN SCALE 6 TO 10 Last Admin: 03/23/18 16:02 Dose: 2 tab Al Hydrox/Mg Hydrox/Simethicone (Mag-Al Plus Susp Liq) 30 ml PO Q6H PRN PRN Reason: DYSPEPSIA Al Hydroxide/Mg Hydroxide (Milk Of Magnesia Liq) 30 ml PO Q12H PRN PRN Reason: Mild Constipation Albuterol (Albuterol Neb (Prn)) 2.5 mg NEB Q4HR NEB PRN PRN Reason: WHEEZING Amlodipine Besylate (Norvasc) 5 mg PO DAILY [facility] Last Admin: 03/23/18 09:11 Dose: 5 mg Atenolol (Tenormin) 25 mg PO DAILY [facility] Last Admin: 03/23/18 09:11 Dose: 25 mg Bisacodyl (Dulcolax Supp) 10 mg RECTAL DAILY PRN PRN Reason: SEVERE CONSITIPATION Clonidine HCl (Catapres) 0.1 mg PO Q6H PRN PRN Reason: SYS BP GREATER THAN 170 MMHG Cyanocobalamin (Vitamin B12) 5,000 mcg PO DAILY [facility] Last Admin: 03/23/18 09:10 Dose: 5,000 mcg Cyclobenzaprine HCl (Flexeril) 10 mg PO Q8H PRN PRN Reason: MUSCLE SPASM Last Admin: 03/23/18 21:10 Dose: 10 mg Sodium Chloride (Ns Inj) 1,000 mls @ 30 mls/hr IV.SIG .Q24H [facility] Calcium Gluconate 1 gm/ Sodium (Chloride) 110 mls @ 110 mls/hr IV.SIG UNSCH PRN PRN Reason: SEE LABEL COMMENTS Potassium Chloride (Kcl 20 Meq Premix Inj) 20 meq in 100 mls @ 50 mls/hr IV.SIG UNSCH PRN PRN Reason: POTASSIUM LESS THAN 4 Magnesium Sulfate Inj 2 gm/ (Sodium Chloride) 100 mls @ 100 mls/hr IV.SIG UNSCH PRN PRN Reason: MAGNESIUM LESS THAN 2 Lactulose (Lactulose Liq) 30 ml PO DAILY PRN PRN Reason: SEVERE CONSITIPATION Menthol ([place]) 1 lozenge BUCCAL UNSCH PRN PRN Reason: SORE THROAT Morphine Sulfate (Morphine Inj) 4 mg IV.PUSH Q4H PRN PRN Reason: Acute Pain Last Admin: 03/23/18 09:15 Dose: 4 mg Pantoprazole Sodium (Protonix) 40 mg PO DAILY [facility] Last Admin: 03/23/18 09:11 Dose: 40 mg Senna/Docusate Sodium (Caitlyn-Colace) 1 tab PO BID [facility] Last Admin: 03/23/18 21:09 Dose: 1 tab Sennosides (Senokot) 17.2 mg PO Q12H PRN PRN Reason: Moderate Constipation Vitamin D (Vitamin D3) 5,000 unit PO DAILY [facility] Last Admin: 03/23/18 09:11 Dose: 5,000 unit Zolpidem Tartrate (Ambien) 5 mg PO HS PRN PRN Reason: INSOMNIA Allergies Allergy/AdvReac Type Severity Reaction Status Date / Time No Known Allergies Allergy Verified 03/20/18 07:13 Home Medications Medication Instructions Recorded Confirmed Type amlodipine 5 mg PO DAILY 03/16/18 03/20/18 History atenolol 25 mg PO DAILY 03/16/18 03/20/18 History cholecalciferol (vitamin D3) 5,000 unit PO DAILY 03/16/18 03/20/18 History [Vitamin D3] cyanocobalamin (vitamin B-12) 5,000 mcg SUBLINGUAL DAILY 03/16/18 03/20/18 History [Vitamin B-12] Physical Exam Vital signs: Vital Signs 03/23/18 00:00 03/23/18 04:00 03/23/18 08:00 Temperature 100.0 F H 99.4 F 97.8 F Pulse Rate 85 80 98 H Respiratory Rate 17 18 18 Blood Pressure 139/74 146/77 H 138/75 Pulse Oximetry 94 L 95 98 03/23/18 12:00 03/23/18 16:00 03/23/18 20:00 Temperature 98.0 F 98.2 F 100.9 F H Pulse Rate 99 H 99 H 88 Respiratory Rate 17 18 Blood Pressure 132/64 130/84 123/77 Pulse Oximetry 96 95 95 Intake & Output 03/23/18 03/23/18 03/24/18 06:59 18:59 06:59 Intake Total 480 / 480 680 / 680 Output Total 1025 / 1025 500 / 500 Balance -545 / -545 180 / 180 Intake: Oral 480 / 480 680 / 680 Output: Urine 1025 / 1025 500 / 500 Other: Date of Last Bowel Movement 03/21/18 03/21/18 # Bowel Movements 0 - Constitutional no acute distress - Routine HEENT Exam Head: Present: normocephalic, atraumatic Eye: Present: EOMI, PERRL, normal accommodation - Routine Neck Exam Present: supple. Absent: JVD, carotid bruit - Routine Respiratory Exam Absent: accessory muscle use - Routine Cardiovascular Exam Present: RRR, S1, S2 - Routine Abdominal Exam Present: soft, normoactive bowel sounds - Routine Extremities Exam Absent: cyanosis, clubbing, edema Comments: Right upper extremity weakness 3 out of 5 - Routine Skin Exam Present: intact - Detailed Neurological Exam: Coma Scale Eye Opening: Spontaneous Verbal Response: Oriented Motor Response: Obey commands Buffy Coma Scale Total: 15 - Urinary Catheter Management Indwelling Urethral Catheter Cath placed during this visit: yes, but has since been removed by the nurse Reason for continuing: Other continuation reason Insertion date: 03/20/18 Removal date: 03/21/18 Removal time: 10:00 Assessment and Plan - Assessment and Plan Plan: Cervical stenosis of spinal canal -Now status post posterior cervical C2, C3, C4, C5 and C6 autograft fusion -C2-6 decompressive laminectomy -C3-6 lateral mass/facet segmental fixation Postsurgical changes causing increasing posterior epidural effacement and spinal stenosis -Discuss by neurosurgery with the patient and his -Decision made to observe patient in the ICU -Monitor for any acute changes considering emergent surgery. DVT GI prophylaxis -Teds SCDs -Pharmacological DVT prophylaxis per neurosurgery -Regular diet Level 2
[2018-03-23 23:08] LABS: Baso # (Auto) 0.1 th/mm3 (0.0-0.2); Baso % (Auto) 0.5 % (0.0-2.0); Eos # (Auto) 0.1 th/mm3 (0.0-0.4); Eos % (Auto) 0.6 % (0.0-4.0); Hematocrit 42.5 % (39.0-51.0); Lymph # (Auto) 0.8 th/mm3 (1.0-4.8); Lymph % (Auto) 7.6 % (9.0-44.0); Mean Corpuscular Hemoglobin 28.3 pg (27.0-34.0); Mean Corpuscular Volume 85.7 fL (80.0-100.0); Mean Platelet Volume 9.4 fL (7.0-11.0); Mono # (Auto) 1.2 th/mm3 (0.0-0.9); Mono % (Auto) 10.7 % (0.0-8.0); Neut % (Auto) 80.6 % (16.0-70.0); Platelet Count 174 th/mm3 (150-450); Red Blood Count 4.96 mil/mm3 (4.50-5.90); Red Cell Distribution Width 13.6 % (11.6-17.2); White Blood Count 11.1 th/mm3 (4.0-11.0)
[2018-03-23 23:24] LABS: Calcium 8.8 mg/dL (8.5-10.1); Carbon Dioxide 27.3 meq/L (21.0-32.0)
[2018-03-24] MEDS: Morphine Inj 4 MG/ML Vial IV.PUSH PRN ×5 (02:22→23:08)
--- NOTE | 2018-03-24 06:45 | P.PNCC ---
Subjective Subjective Remarks/Hospital Course: 62-year-old very pleasant gentleman who underwent March posterior cervical C2 , C3, C4, C5 and C6 autograft fusion; C2-6 decompressive laminectomy; C3-6 lateral mass/facet segmental fixation. In the morning he felt more weak on the right side. The MRI of the C-spine shows increasing posterior epidural effacement and spinal stenosis. There is worsening spinal cord compression especially at the C2-3 and C3-4 level. This was discussed with the patient by neurosurgeon, with the decision to proceed with conservative management and transfer to ICU and observation. Subjective 03/24: T-max 100.9. Currently 100.2.. Remains on nasal cannula. Neurological exam is seen so with right sided weakness but not worsening. Noted yesterday that C-spine MRI which shows some posterior compression especially towards the right. Dr. Bueno also reviewed the MRI with Dr. Ray. Presented options for care which include returning the patient to the operating room for exploration and possible drainage or continued observation in the intensive care unit. Currently plan to observe and ISC. Objective Vital Signs / I&O: Vital Signs 03/23/18 08:00 03/23/18 12:00 03/23/18 16:00 Temperature 97.8 F 98.0 F 98.2 F Pulse Rate 98 H 99 H 99 H Respiratory Rate 18 17 18 Blood Pressure 138/75 132/64 130/84 Pulse Oximetry 98 96 95 03/23/18 20:00 03/23/18 22:30 03/23/18 23:03 Temperature 100.9 F H 99.8 F H Pulse Rate 88 102 H Respiratory Rate 18 20 Blood Pressure 123/77 147/94 H Pulse Oximetry 95 95 03/23/18 23:33 03/24/18 00:00 Temperature 100.2 F H Pulse Rate 105 H Respiratory Rate 13 20 Blood Pressure 139/82 Pulse Oximetry 96 Intake & Output 03/23/18 03/23/18 03/24/18 06:59 18:59 06:59 Intake Total 480 / 480 680 / 680 Output Total 1025 / 1025 500 / 500 Balance -545 / -545 180 / 180 Intake: Oral 480 / 480 680 / 680 Output: Urine 1025 / 1025 500 / 500 Other: Date of Last Bowel Movement 03/21/18 03/21/18 03/20/18 # Bowel Movements 0 Result Diagrams: 03/23/18 22:54 03/23/18 22:54 Imaging: ITS Impressions Cervical Spine X-Ray 03/20/18 00:00 CONCLUSION: Postsurgical changes as above. Cervical Spine MRI 03/23/18 13:26 CONCLUSION: 1. Status post laminectomy from C2 through C6 with postsurgical changes causing increasing posterior epidural effacement and spinal stenosis. There is worsening spinal cord compression especially at the C2-3 and C3-4 level. 2. 10 mm T2 hypointense structure in the posterior epidural space at C2-3 which may represent a bony fragment. 3. Posterior subcutaneous fluid collection at the C6 level characteristic of a small seroma or resolving hematoma. 4. Persistent large bony bars characteristic of disc osteophyte complexes at C2 -3 and C3-4 causing cord effacement. Objective Remarks: GENERAL: 62-year-old male currently resting in bed in no acute distress SKIN: Warm and dry. HEAD: Atraumatic. Normocephalic. EYES: Pupils equal and round. No scleral icterus. No injection or drainage. ENT: No nasal bleeding or discharge. Mucous membranes pink and moist. NECK: Trachea midline. No JVD. CARDIOVASCULAR: Regular rate and rhythm. S1, S2. No S4. No murmur RESPIRATORY: No accessory muscle use. Clear to auscultation. Breath sounds equal bilaterally. GASTROINTESTINAL: Abdomen soft, non-tender, nondistended. Hepatic and splenic margins not palpable. MUSCULOSKELETAL: Extremities without clubbing, cyanosis, or edema. No obvious deformities. NEUROLOGICAL: Awake and alert. No obvious cranial nerve deficits. Right upper extremity weakness 3 out of 5. Will to move right lower extremity. No sensation deficits. PSYCHIATRIC: Appropriate mood and affect; insight and judgment normal. Assessment and Plan - Assessment and Plan Plan: Neuro/Psych: Status post posterior cervical C2, C3, C4, C5 and C6 autograft fusion -C2-6 decompressive laminectomy -C3-6 lateral mass/facet segmental fixation Repeat imaging 03/23 C-spine revealed status post laminectomy from C2 through C6 with postsurgical changes causing increasing posterior epidural effacement and spinal stenosis. There is worsening spinal cord compression especially at the C2 -3 and C3-4 level. MRI C Spine which shows some posterior compression especially towards the right. Dr. Bueno also reviewed the MRI. Discussed the findings of MRI with patient and . Presented options for care which include returning the patient to the operating room for exploration and possible drainage or continued observation in the intensive care unit. Acetaminophen 650 p.o. every 4 hours as needed fever Hydrocodone/acetaminophen 10/325 1 tablet every 4 hours as needed pain 1 through 5 Morphine sulfate 4 mg IV every 4 hours as needed pain 6 or 10 CV: Essential hypertension Continue amlodipine 5 mg daily and atenolol 25 mg by mouth daily Resp: Nasal cannula to maintain saturations greater than equal to 92% Incentive spirometry while awake As needed albuterol aerosols every 4 hours as needed dyspnea GI: Per neurosurgery clear liquid diet Pantoprazole for GI prophylaxis Docusate sodium/senna 1 tablet twice daily for bowel regimen : Mata catheter removed 03/21 Endo: Sliding scale insulin if indicated to maintain euglycemia Renal: History of renal cell carcinoma status post right nephrectomy Acute on chronic kidney disease stage IIIa Downward trend of creatinine noted. Recheck BMP in a.m. Heme: Leukocytosis Monitor CBC daily. Follow trends ID: Monitor for signs and symptomatology of infection MSK: PT/OT evaluate and treat FEN: Replace electrolytes as clinically indicated Access -utilize peripheral IV. Central line if indicated Prophylaxis -GI -pantoprazole -DVT -SCD/pharmacological prophylaxis when okay with neurosurgery Level 2 follow-up
[2018-03-24] MEDS: Senna/Docusate Sodium 8.6/50 MG Tablet PO SCH ×2 (08:46→20:59)
[2018-03-24] MEDS: amLODIPine 5 MG Tablet PO SCH (09:42)
[2018-03-24] MEDS: Atenolol 25 MG Tablet PO SCH (09:42)
--- NOTE | 2018-03-24 10:44 | P.PNNS ---
Subjective Interval history: Patient reports that his arm is somewhat improved from yesterday otherwise is unchanged Physical Exam Vital signs: Vital Signs 03/23/18 12:00 03/23/18 16:00 03/23/18 20:00 Temperature 98.0 F 98.2 F 100.9 F H Pulse Rate 99 H 99 H 88 Respiratory Rate 17 18 18 Blood Pressure 132/64 130/84 123/77 Pulse Oximetry 96 95 95 03/23/18 22:30 03/23/18 23:03 03/23/18 23:33 Temperature 99.8 F H Pulse Rate 102 H Respiratory Rate 20 13 Blood Pressure 147/94 H Pulse Oximetry 95 03/24/18 00:00 03/24/18 04:00 03/24/18 09:42 Temperature 100.2 F H 99.1 F Pulse Rate 105 H 100 H Respiratory Rate 20 13 11 L Blood Pressure 139/82 123/18 L Pulse Oximetry 96 97 03/24/18 09:55 Temperature Pulse Rate Respiratory Rate 16 Blood Pressure Pulse Oximetry Intake & Output 03/23/18 03/24/18 03/24/18 18:59 06:59 18:59 Intake Total 680 / 680 100 / 100 Output Total 500 / 500 275 / 275 Balance 180 / 180 -175 / -175 Weight 96 kg Intake: Oral 680 / 680 100 / 100 Output: Urine 500 / 500 275 / 275 Other: Date of Last Bowel Movement 03/21/18 03/20/18 # Bowel Movements 0 Narrative: Patient remains alert and awake. Follows commands. Soft-spoken Arm and leg strength appear unchanged from previous - Urinary Catheter Management Indwelling Urethral Catheter Cath placed during this visit: yes, but has since been removed by the nurse Reason for continuing: Other continuation reason Insertion date: 03/20/18 Removal date: 03/21/18 Removal time: 10:00 Assessment and Plan - Assessment (1) Cervical spondylosis with myelopathy and radiculopathy Code(s): M47.12 - Other spondylosis with myelopathy, cervical region; M47.22 - Other spondylosis with radiculopathy, cervical region Status: Acute - Plan Patient appears essentially unchanged. Have discussed options of care with the patient and the . Have recommended surgery. Reviewed possible risk of the surgery. is very anxious and they are undecided as to how to proceed. They want me to discuss this with other family members and I have agreed
--- NOTE | 2018-03-24 11:58 | P.PNNS ---
Physical Exam Vital signs: Vital Signs 03/23/18 12:00 03/23/18 16:00 03/23/18 20:00 Temperature 98.0 F 98.2 F 100.9 F H Pulse Rate 99 H 99 H 88 Respiratory Rate 17 18 18 Blood Pressure 132/64 130/84 123/77 Pulse Oximetry 96 95 95 03/23/18 22:30 03/23/18 23:03 03/23/18 23:33 Temperature 99.8 F H Pulse Rate 102 H Respiratory Rate 20 13 Blood Pressure 147/94 H Pulse Oximetry 95 03/24/18 00:00 03/24/18 04:00 03/24/18 09:42 Temperature 100.2 F H 99.1 F Pulse Rate 105 H 100 H Respiratory Rate 20 13 11 L Blood Pressure 139/82 123/18 L Pulse Oximetry 96 97 03/24/18 09:55 Temperature Pulse Rate Respiratory Rate 16 Blood Pressure Pulse Oximetry Intake & Output 03/23/18 03/24/18 03/24/18 18:59 06:59 18:59 Intake Total 680 / 680 100 / 100 Output Total 500 / 500 275 / 275 Balance 180 / 180 -175 / -175 Weight 96 kg Intake: Oral 680 / 680 100 / 100 Output: Urine 500 / 500 275 / 275 Other: Date of Last Bowel Movement 03/21/18 03/20/18 # Bowel Movements 0 - Urinary Catheter Management Indwelling Urethral Catheter Cath placed during this visit: yes, but has since been removed by the nurse Reason for continuing: Other continuation reason Insertion date: 03/20/18 Removal date: 03/21/18 Removal time: 10:00 Assessment and Plan - Assessment (1) Cervical spondylosis with myelopathy and radiculopathy Code(s): M47.12 - Other spondylosis with myelopathy, cervical region; M47.22 - Other spondylosis with radiculopathy, cervical region Status: Acute - Plan Have discussed patient's present clinical status with the remainder of the patient's family which includes the mother and several sisters. I have recommended reexploration of the previous surgery and explained need for such. Possible complications of reexploration also discussed. The family and the patient have declined exploration at this point and want to wait until Dr. Rubin can reevaluate him. I have explained to the patient and the family that prolonging the wait may cause poor neurological outcome. They understand this and do not want to proceed with surgery at the present time.
[2018-03-25] MEDS: Morphine Inj 4 MG/ML Vial IV.PUSH PRN ×4 (03:40→21:44)
[2018-03-25 05:09] LABS: Baso # (Auto) 0.1 th/mm3 (0.0-0.2); Baso % (Auto) 0.6 % (0.0-2.0); Eos # (Auto) 0.2 th/mm3 (0.0-0.4); Eos % (Auto) 1.6 % (0.0-4.0); Hematocrit 40.4 % (39.0-51.0); Hemoglobin 13.1 gm/dL (13.0-17.0); Lymph # (Auto) 1.5 th/mm3 (1.0-4.8); Lymph % (Auto) 13.8 % (9.0-44.0); Mean Corpuscular HGB Conc 32.5 % (32.0-36.0); Mean Corpuscular Hemoglobin 28.1 pg (27.0-34.0); Mean Corpuscular Volume 86.4 fL (80.0-100.0); Mean Platelet Volume 9.1 fL (7.0-11.0); Mono # (Auto) 1.9 th/mm3 (0.0-0.9); Mono % (Auto) 17.5 % (0.0-8.0); Neut # (Auto) 7.1 th/mm3 (1.8-7.7); Neut % (Auto) 66.5 % (16.0-70.0); Platelet Count 179 th/mm3 (150-450); Red Blood Count 4.67 mil/mm3 (4.50-5.90); Red Cell Distribution Width 13.9 % (11.6-17.2); White Blood Count 10.7 th/mm3 (4.0-11.0)
[2018-03-25 05:16] LABS: Alanine Aminotransferase 14 U/L (12-78); Albumin 2.3 g/dL (3.4-5.0); Alkaline Phosphatase 88 U/L (45-117); Anion Gap 9 meq/L (5-15); Aspartate Aminotransferase 26 U/L (15-37); Blood Urea Nitrogen 18 mg/dL (7-18); Calcium 8.8 mg/dL (8.5-10.1); Carbon Dioxide 28.8 meq/L (21.0-32.0); Chloride 99 meq/L (98-107); Glomerular Filtration Rate 45 mL/min (>89); Glucose,Random 95 mg/dL (74-106); Magnesium 2.2 mg/dL (1.5-2.5); Phosphorus 4.2 mg/dL (2.5-4.9); Potassium 4.9 meq/L (3.5-5.1); Total Protein 7.1 g/dL (6.4-8.2)
[2018-03-25 05:19] LABS: Sodium 137 meq/L (136-145)
--- NOTE | 2018-03-25 08:54 | P.PNCC ---
Subjective Subjective Remarks/Hospital Course: 62-year-old very pleasant gentleman who underwent March posterior cervical C2 , C3, C4, C5 and C6 autograft fusion; C2-6 decompressive laminectomy; C3-6 lateral mass/facet segmental fixation. In the morning he felt more weak on the right side. The MRI of the C-spine shows increasing posterior epidural effacement and spinal stenosis. There is worsening spinal cord compression especially at the C2-3 and C3-4 level. This was discussed with the patient by neurosurgeon, with the decision to proceed with conservative management and transfer to ICU and observation. 03/24: T-max 100.9. Currently 100.2.. Remains on nasal cannula. Neurological exam is seen so with right sided weakness but not worsening. Noted yesterday that C-spine MRI which shows some posterior compression especially towards the right. Dr. Bueno also reviewed the MRI with Dr. Ray. Presented options for care which include returning the patient to the operating room for exploration and possible drainage or continued observation in the intensive care unit. Currently plan to observe and ISC. Subjective 03/25: T-max 100.4. Currently 99.1. Patient states he wishes to proceed with surgical intervention. Tentatively planned for tomorrow however if symptomatology worsens notify neurosurgery who is aware. Patient states he is subjectively more weak in the left upper extremity today. Tolerating diet. No bowel movement since 03/20. Objective Vital Signs / I&O: Vital Signs 03/24/18 09:42 03/24/18 09:55 03/24/18 10:00 Temperature Pulse Rate 90 Respiratory Rate 11 L 16 Blood Pressure Pulse Oximetry 03/24/18 12:00 03/24/18 14:00 03/24/18 16:00 Temperature 99.7 F H 100.4 F H Pulse Rate 94 H 95 H 99 H Respiratory Rate 10 L 13 Blood Pressure 119/71 129/73 Pulse Oximetry 97 96 03/24/18 16:10 03/24/18 18:00 03/24/18 20:00 Temperature 99.1 F Pulse Rate 101 H 98 H Respiratory Rate 12 14 Blood Pressure 122/70 Pulse Oximetry 96 03/25/18 00:00 03/25/18 04:00 Temperature 99.4 F 99 F Pulse Rate 94 H 91 H Respiratory Rate 14 12 Blood Pressure 121/79 124/76 Pulse Oximetry 97 97 Intake & Output 03/24/18 03/25/18 03/25/18 18:59 06:59 18:59 Intake Total 920 / 920 1478 / 1478 Output Total 600 / 600 1250 / 1250 Balance 320 / 320 228 / 228 Intake: Oral 920 / 920 750 / 750 Other 728 / 728 Output: Urine 600 / 600 850 / 850 Estimated Blood Loss 400 / 400 Other: Date of Last Bowel Movement 03/20/18 03/20/18 # Bowel Movements 0 0 Result Diagrams: 03/25/18 04:36 03/25/18 04:36 Imaging: ITS Impressions Cervical Spine X-Ray 03/20/18 00:00 CONCLUSION: Postsurgical changes as above. Cervical Spine MRI 03/23/18 13:26 CONCLUSION: 1. Status post laminectomy from C2 through C6 with postsurgical changes causing increasing posterior epidural effacement and spinal stenosis. There is worsening spinal cord compression especially at the C2-3 and C3-4 level. 2. 10 mm T2 hypointense structure in the posterior epidural space at C2-3 which may represent a bony fragment. 3. Posterior subcutaneous fluid collection at the C6 level characteristic of a small seroma or resolving hematoma. 4. Persistent large bony bars characteristic of disc osteophyte complexes at C2 -3 and C3-4 causing cord effacement. Objective Remarks: GENERAL: 62-year-old male currently resting in bed in no acute distress SKIN: Warm and dry. HEAD: Atraumatic. Normocephalic. EYES: Pupils equal and round. No scleral icterus. No injection or drainage. ENT: No nasal bleeding or discharge. Mucous membranes pink and moist. NECK: Trachea midline. No JVD. [place] J collar in place CARDIOVASCULAR: Regular rate and rhythm. S1, S2. No S4. No murmur RESPIRATORY: No accessory muscle use. Clear to auscultation. Breath sounds equal bilaterally. GASTROINTESTINAL: Abdomen soft, non-tender, nondistended. Hepatic and splenic margins not palpable. MUSCULOSKELETAL: Extremities without clubbing, cyanosis, or edema. No obvious deformities. NEUROLOGICAL: Awake and alert. No obvious cranial nerve deficits. Right upper extremity weakness 4 out of 5. 2-3 out of 5 right lower extremity. Left upper and lower extremity 4.5 out of 5 no sensation deficits. PSYCHIATRIC: Appropriate mood and affect; insight and judgment normal. Assessment and Plan - Assessment and Plan Plan: Neuro/Psych: Status post posterior cervical C2, C3, C4, C5 and C6 autograft fusion -C2-6 decompressive laminectomy -C3-6 lateral mass/facet segmental fixation Repeat imaging 03/23 C-spine revealed status post laminectomy from C2 through C6 with postsurgical changes causing increasing posterior epidural effacement and spinal stenosis. There is worsening spinal cord compression especially at the C2 -3 and C3-4 level. MRI C Spine - status post laminectomy from C2 through C6 with postsurgical changes causing increasing posterior epidural effacement and spinal stenosis. There is worsening spinal cord compression especially at the C2-3 and C3-4 level. 10 mm T2 hypointense structure in the posterior epidural space at C2-3 which may represent a bony fragment. Posterior subcutaneous fluid collection at the C6 level characteristic of a small seroma or resolving hematoma. Persistent large bony bars characteristic of disc osteophyte complexes at C2-3 and C3-[address] Bueno also reviewed the MRI. Discussed the findings of MRI with patient and . Presented options for care which include returning the patient to the operating room for exploration and possible drainage or continued observation in the intensive care unit. Acetaminophen 650 p.o. every 4 hours as needed fever Hydrocodone/acetaminophen 10/325 1-2 tablet every 4 hours as needed pain 1 through 10 Morphine sulfate 4 mg IV every 4 hours as needed breakthrough pain CV: Essential hypertension Continue amlodipine 5 mg daily and atenolol 25 mg by mouth daily On NS at 30 cc an hour Resp: Nasal cannula to maintain saturations greater than equal to 92% Incentive spirometry while awake As needed albuterol aerosols every 4 hours as needed dyspnea GI: Hypoalbuminemia Per neurosurgery clear liquid diet Pantoprazole for GI prophylaxis Docusate sodium/senna 1 tablet twice daily for bowel regimen : Mata catheter removed 03/21 Endo: Sliding scale insulin if indicated to maintain euglycemia Renal: History of renal cell carcinoma status post right nephrectomy Acute on chronic kidney disease stage IIIa Downward trend of creatinine noted. Recheck BMP in a.m. Heme: Monitor CBC daily. Follow trends ID: Monitor for signs and symptomatology of infection MSK: PT/OT evaluate and treat FEN: Replace electrolytes as clinically indicated Access -utilize peripheral IV. Central line if indicated Prophylaxis -GI -pantoprazole -DVT -SCD/pharmacological prophylaxis when okay with neurosurgery Level 2 follow-up
[2018-03-25] MEDS ORDERED: Glycerin Adult 2 GM Supp RECTAL ONE (09:15)
[2018-03-25] MEDS ORDERED: Propofol Inj 500 MG/50 ML Vial ONE (09:27)
[2018-03-25] MEDS ORDERED: HYDROmorphone PF Inj 2 MG/ML Vial ONE (09:28)
[2018-03-25] MEDS ORDERED: Bupivacaine/Epinephrine 0.5% Inj 50 ML Vial ONE (09:39)
[2018-03-25] MEDS ORDERED: Thrombin Topical Soln 5,000 UNIT Vial TOPICAL ONE (09:39)
[2018-03-25] MEDS ORDERED: Gelatin Size 100 Topical Foam ONE ×2 (09:39→10:51)
--- NOTE | 2018-03-25 10:07 | P.PNNS ---
Subjective Interval history: Complaning of significant pain. Reports poosible increse in weakness Physical Exam Vital signs: Vital Signs 03/24/18 10:00 03/24/18 12:00 03/24/18 14:00 Temperature 99.7 F H Pulse Rate 90 94 H 95 H Respiratory Rate 10 L Blood Pressure 119/71 Pulse Oximetry 97 03/24/18 16:00 03/24/18 16:10 03/24/18 18:00 Temperature 100.4 F H Pulse Rate 99 H 101 H Respiratory Rate 13 12 Blood Pressure 129/73 Pulse Oximetry 96 03/24/18 20:00 03/25/18 00:00 03/25/18 04:00 Temperature 99.1 F 99.4 F 99 F Pulse Rate 98 H 94 H 91 H Respiratory Rate 14 14 12 Blood Pressure 122/70 121/79 124/76 Pulse Oximetry 96 97 97 Intake & Output 03/24/18 03/25/18 03/25/18 18:59 06:59 18:59 Intake Total 920 / 920 1478 / 1478 Output Total 600 / 600 1250 / 1250 Balance 320 / 320 228 / 228 Intake: Oral 920 / 920 750 / 750 Other 728 / 728 Output: Urine 600 / 600 850 / 850 Estimated Blood Loss 400 / 400 Other: Date of Last Bowel Movement 03/20/18 03/20/18 # Bowel Movements 0 0 Narrative: Right arm weaker than previous Biceps 2/5, Triceps 1-2/5, 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 Left triceps 2/5, hand ase master mechanic 2/5 Right leg 2/5 Left leg 3-/5 - Urinary Catheter Management Indwelling Urethral Catheter Cath placed during this visit: yes, but has since been removed by the nurse Reason for continuing: Other continuation reason Insertion date: 03/20/18 Removal date: 03/21/18 Removal time: 10:00 Assessment and Plan - Assessment (1) Cervical spondylosis with myelopathy and radiculopathy Code(s): M47.12 - Other spondylosis with myelopathy, cervical region; M47.22 - Other spondylosis with radiculopathy, cervical region Status: Acute - Plan Patient appears weaker than yesterday. Long discussion with patient. Has agreed to surgery. Understands that surgery may not improve and there is increased risk of worsening. Will proceed.
[2018-03-25] MEDS ORDERED: ceFAZolin 2 GM Premix Inj 2 GM/50 ML PIGGYBACK IV.SIG ONE (10:13)
[2018-03-25] MEDS ORDERED: Phenylephrine/NS 1000 MCG/10ML Syringe IV.PUSH ONE (12:00)
[2018-03-25] MEDS ORDERED: Succinylcholine Inj 200 MG/10 ML Vial IV.PUSH ONE (12:00)
[2018-03-25] MEDS ORDERED: Lidocaine PF 1% Inj 5 ML Syringe INFILTRATN ONE (12:00)
[2018-03-25] MEDS ORDERED: *Labetalol HCl Inj 100 MG/20 ML Vial PERIprocedural Use ONLY IV.PUSH ONE (13:12)
[2018-03-25] MEDS ORDERED: Sugammadex Inj 200 MG/2 ML Vial IV.PUSH ONE (13:29)
--- NOTE | 2018-03-25 13:38 | P.BOP ---
- Preoperative Diagnosis (1) Postoperative hematoma - Postoperative Diagnosis (1) Postoperative hematoma Date of procedure: 03/25/18 Procedure: Reexploration of posterior cervical wound, evacuation of hematoma, placement of epidural drain Anesthesia: GETA Surgeon: Brandon Ray MD Estimated blood loss (mL): 50 Urine output (mL): 300 Pathology: none sent Condition: stable Disposition: PACU
[2018-03-25 13:40] LABS: Hematocrit 36.3 % (39.0-51.0); Hemoglobin 12.2 gm/dL (13.0-17.0)
--- NOTE | 2018-03-25 14:02 | MP ---
cc: Brandon DOWD DATE OF OPERATION: PREOPERATIVE DIAGNOSIS: Postoperative hematoma. POSTOPERATIVE DIAGNOSIS: Postoperative hematoma. OPERATION: Reexploration posterior cervical wound, evacuation of hematoma and placement of epidural drain. SURGEON: Dr. Ray. PRACTICE OFFICE ASSOCIATE: Mr. Marie. PROCEDURE: The patient was taken to the operating room. He was intubated and placed under general anesthesia. An arterial line was placed by the anesthesiologist. Once under general anesthesia, the 3-point head restraint was applied to the patient and then he was turned prone onto the operating room table upon gel pads and secured to the operating room table with the Huang adapter. Once this was accomplished, the shoulders were taped down and the arms secured. Mata catheter was placed prior to turning the patient. Surgical vipul were removed and then the wound was prepped and draped in usual sterile fashion. The wound was slowly reopened utilizing initially a scalpel and then the Metzenbaum scissors to cut the sutures and the wound was progressively opened. As we opened the fascia a hematoma was encountered, which was easily removed, appeared to be somewhat under pressure upon release of the sutures. The procedure continued until all of the sutures were cut and the dural sac was exposed. The wound was then retracted with cerebellar retractors and the area was irrigated and inspected. No further hematoma was seen and was easily removed. The dura no longer appeared to be compressed, and then the area was copiously irrigated with saline and then with gentamicin irrigation. Once hemostasis was completely secured, the wound was closed in several layers. The paraspinal muscles were approximated with 2-0 Vicryl in interrupted fashion. The fascia was approximated with 2-0 Vicryl in interrupted fashion and then the subcutaneous tissue was approximated with 2-0 Vicryl in interrupted fashion. Surgical vipul were reapplied to the wound. Sterile dressing was applied and then the patient was turned over onto a regular bed and the Huang 3-point head restraint was removed and the patient was slowly awakened and extubated and taken to the PACU for further observation. While in PACU, the patient appeared to be somewhat improved. Brandon ARIZA/ALEX , 01:43 PM , 01:59 PM KATHY
[2018-03-25 14:10] LABS: Calcium 8.5 mg/dL (8.5-10.1); Carbon Dioxide 24.3 meq/L (21.0-32.0); Potassium 4.8 meq/L (3.5-5.1)
[2018-03-25] MEDS: Polyethylene Glycol 3350 17 GM Packet PO SCH ×2 (17:06→21:31)
[2018-03-25] MEDS: Senna/Docusate Sodium 8.6/50 MG Tablet PO SCH (21:30)
[2018-03-26] MEDS: Morphine Inj 4 MG/ML Vial IV.PUSH PRN ×4 (01:49→20:53)
[2018-03-26 04:26] LABS: INR 1.1 Ratio; Prothrombin Time 10.8 sec (9.8-11.6)
[2018-03-26 04:41] LABS: Alanine Aminotransferase 46 U/L (12-78); Albumin 1.9 g/dL (3.4-5.0); Alkaline Phosphatase 139 U/L (45-117); Anion Gap 10 meq/L (5-15); Aspartate Aminotransferase 112 U/L (15-37); Blood Urea Nitrogen 22 mg/dL (7-18); Calcium 8.4 mg/dL (8.5-10.1); Carbon Dioxide 25.8 meq/L (21.0-32.0); Chloride 104 meq/L (98-107); Glomerular Filtration Rate 48 mL/min (>89); Glucose,Random 148 mg/dL (74-106); Magnesium 2.5 mg/dL (1.5-2.5); Phosphorus 2.3 mg/dL (2.5-4.9); Potassium 4.9 meq/L (3.5-5.1); Sodium 140 meq/L (136-145); Total Protein 6.9 g/dL (6.4-8.2)
--- NOTE | 2018-03-26 04:45 | XR ---
EXAM DATE: 03/26/2018 4:14 AM EDT AGE/SEX: 62 years / Male INDICATIONS: Shortness of breath. CLINICAL DATA: This is the patient's subsequent encounter. Patient reports that signs and symptoms h ave been present for 3 days and indicates a pain score of 0/10. MEDICAL/SURGICAL HISTORY: . Renal carcinoma. . Nephrectomy, right. COMPARISON: [facility] – [place], CHEST SINGLE AP, 10/07/2017. . FINDINGS: Mild patchy airspace disease in the left lower lung zone with mild associated volume loss. Cardiomedi astinal contours are within normal limits. Bony thorax is intact. CONCLUSION: 1. Mild left lower lung zone airspace disease and associated volume loss may reflect atelectasis. Ho wever, developing pneumonia cannot be excluded in the appropriate clinical setting. Electronically signed by: Mikey Boston MD 03/26/2018 4:44 AM EDT
--- NOTE | 2018-03-26 08:20 | P.PNCC ---
Subjective Subjective Remarks/Hospital Course: 62-year-old very pleasant gentleman who underwent March posterior cervical C2 , C3, C4, C5 and C6 autograft fusion; C2-6 decompressive laminectomy; C3-6 lateral mass/facet segmental fixation. In the morning he felt more weak on the right side. The MRI of the C-spine shows increasing posterior epidural effacement and spinal stenosis. There is worsening spinal cord compression especially at the C2-3 and C3-4 level. This was discussed with the patient by neurosurgeon, with the decision to proceed with conservative management and transfer to ICU and observation. 03/24: T-max 100.9. Currently 100.2.. Remains on nasal cannula. Neurological exam is seen so with right sided weakness but not worsening. Noted yesterday that C-spine MRI which shows some posterior compression especially towards the right. Dr. Bueno also reviewed the MRI with Dr. Ray. Presented options for care which include returning the patient to the operating room for exploration and possible drainage or continued observation in the intensive care unit. Currently plan to observe and ISC. Subjective 03/25: T-max 100.4. Currently 99.1. Patient states he wishes to proceed with surgical intervention. Tentatively planned for tomorrow however if symptomatology worsens notify neurosurgery who is aware. Patient states he is subjectively more weak in the left upper extremity today. Tolerating diet. No bowel movement since 03/20. 03/26: Extubated after procedure yesterday and breathing comfortably. Protects airway well, no complaints of difficulty breathing. Improved movement left upper extremity. Objective Vital Signs / I&O: Vital Signs 03/25/18 10:00 03/25/18 13:05 03/25/18 13:15 Temperature 99.0 F Pulse Rate 91 H 99 H 99 H Respiratory Rate 22 Blood Pressure 166/87 H 145/71 H Pulse Oximetry 96 03/25/18 13:30 03/25/18 13:35 03/25/18 13:45 Temperature Pulse Rate 93 H 92 H 92 H Respiratory Rate 12 12 Blood Pressure 140/69 149/91 H 135/65 Pulse Oximetry 97 98 03/25/18 14:00 03/25/18 14:15 03/25/18 14:45 Temperature 98.9 F Pulse Rate 91 H 90 91 H Respiratory Rate 15 14 Blood Pressure 134/74 134/80 Pulse Oximetry 98 100 03/25/18 14:48 03/25/18 16:00 03/25/18 17:16 Temperature 98.4 F Pulse Rate 89 Respiratory Rate 18 Blood Pressure 125/79 Pulse Oximetry 99 99 96 03/25/18 20:00 03/25/18 23:25 03/26/18 00:00 Temperature 98.1 F 98.3 F Pulse Rate 96 H 97 H 91 H Respiratory Rate 12 10 L Blood Pressure 129/53 L 120/79 Pulse Oximetry 98 03/26/18 03:25 03/26/18 04:00 Temperature 98.2 F Pulse Rate 78 78 Respiratory Rate 10 L Blood Pressure 107/64 Pulse Oximetry Intake & Output 03/25/18 03/26/18 03/26/18 18:59 06:59 18:59 Intake Total 3820 / 3820 1428 / 1428 Output Total 2735 / 2735 2630 / 2630 Balance 1085 / 1085 -1202 / -1202 Weight 94.3 kg Intake: IV 100 / 100 Ancef Inj 1,000 MG In NS Inj 100 / 100 100 ML @ 200 mls/hr IV.SIG Q8H [facility] Rx#:[id number] Oral 720 / 720 800 / 800 Anesthesia Amount 3000 / 3000 Other 628 / 628 Output: Estimated Blood Loss 500 / 500 Urine Amount (Catheter) 2200 / 2200 2600 / 2600 Indwelling Urethral Catheter 2200 / 2200 2600 / 2600 Wound Drainage 35 / 35 30 / 30 # 1 Posterior Neck KENA Drain 35 / 35 30 / 30 Other: Date of Last Bowel Movement 03/20/18 03/20/18 # Bowel Movements 0 0 Result Diagrams: 03/25/18 13:15 03/26/18 02:55 Objective Remarks: GENERAL: 62-year-old male currently resting in bed in no acute distress SKIN: Warm and dry. HEAD: Atraumatic. Normocephalic. EYES: Pupils equal and round. No conjunctival icterus. No injection or drainage. ENT: No nasal bleeding or discharge. Mucous membranes pink and moist. NECK: Trachea midline. [place] J collar in place, KENA drain. CARDIOVASCULAR: Regular rate and rhythm. S1, S2. No S4. No murmur. No JVD RESPIRATORY: No accessory muscle use. Clear to auscultation. Breath sounds equal bilaterally. Comfortable respiratory pattern. GASTROINTESTINAL: Abdomen soft, non-tender, nondistended. No guarding, bowel sounds active. MUSCULOSKELETAL: Extremities without clubbing, cyanosis, or edema. Warm, well- perfused NEUROLOGICAL: Awake and alert. No obvious cranial nerve deficits. Right upper extremity weakness 4 out of 5. 2-3 out of 5 right lower extremity. Left upper and lower extremity 4 out of 5 no sensation deficits. PSYCHIATRIC: Appropriate mood and affect; insight and judgment normal. Alert, cooperative. Assessment and Plan - Assessment and Plan Plan: Neuro/Psych: Status post posterior cervical C2, C3, C4, C5 and C6 autograft fusion -C2-6 decompressive laminectomy -C3-6 lateral mass/facet segmental fixation Repeat imaging 03/23 C-spine revealed status post laminectomy from C2 through C6 with postsurgical changes causing increasing posterior epidural effacement and spinal stenosis. There is worsening spinal cord compression especially at the C2 -3 and C3-4 level. MRI C Spine - status post laminectomy from C2 through C6 with postsurgical changes causing increasing posterior epidural effacement and spinal stenosis. There is worsening spinal cord compression especially at the C2-3 and C3-4 level. 10 mm T2 hypointense structure in the posterior epidural space at C2-3 which may represent a bony fragment. Posterior subcutaneous fluid collection at the C6 level characteristic of a small seroma or resolving hematoma. Persistent large bony bars characteristic of disc osteophyte complexes at C2-3 and C3-[address] Bueno also reviewed the MRI. Patient underwent evacuation of cervical hematoma 03/25. Acetaminophen 650 p.o. every 4 hours as needed fever Hydrocodone/acetaminophen 10/325 1-2 tablet every 4 hours as needed pain 1 through 10 Morphine sulfate 4 mg IV every 4 hours as needed breakthrough pain CV: Essential hypertension Continue amlodipine 5 mg daily and atenolol 25 mg by mouth daily On NS at 30 cc an hour Resp: Nasal cannula to maintain saturations greater than equal to 92% Incentive spirometry while awake As needed albuterol aerosols every 4 hours as needed dyspnea GI: Hypoalbuminemia Per neurosurgery clear liquid diet Pantoprazole for GI prophylaxis Docusate sodium/senna 1 tablet twice daily for bowel regimen : Mata catheter removed 03/21 Endo: Sliding scale insulin if indicated to maintain euglycemia Renal: History of renal cell carcinoma status post right nephrectomy Acute on chronic kidney disease stage IIIa Stable trend of creatinine noted. Recheck BMP in a.m. Heme: Monitor CBC daily. Follow trends ID: Monitor for signs and symptomatology of infection MSK: PT/OT evaluate and treat FEN: Replace electrolytes as clinically indicated Access -utilize peripheral IV. Central line if indicated Prophylaxis -GI -pantoprazole -DVT -SCD/pharmacological prophylaxis when okay with neurosurgery Overall impression: Stable hemodynamic and respiratory function status post evacuation of cervical hematoma yesterday. Glucose and blood pressure control are acceptable.
[2018-03-26] MEDS: Atenolol 25 MG Tablet PO SCH (08:32)
[2018-03-26] MEDS: amLODIPine 5 MG Tablet PO SCH (08:32)
[2018-03-26] MEDS: Senna/Docusate Sodium 8.6/50 MG Tablet PO SCH (08:32)
[2018-03-26] MEDS: Sod Chloride 0.9% Inj 1,000 ML IV.SIG SCH ×2 (08:33→11:07)
[2018-03-26] MEDS: Polyethylene Glycol 3350 17 GM Packet PO SCH ×2 (11:06→20:53)
--- NOTE | 2018-03-26 13:22 | P.PNNS ---
Subjective Interval history: 03/26: doing well, reports strength is improving. c/o cervical collar too big and uncomfortable and able to move neck. Physical Exam Vital signs: Vital Signs 03/25/18 13:30 03/25/18 13:35 03/25/18 13:45 Temperature Pulse Rate 93 H 92 H 92 H Respiratory Rate 12 12 Blood Pressure 140/69 149/91 H 135/65 Pulse Oximetry 97 98 03/25/18 14:00 03/25/18 14:15 03/25/18 14:45 Temperature 98.9 F Pulse Rate 91 H 90 91 H Respiratory Rate 15 14 Blood Pressure 134/74 134/80 Pulse Oximetry 98 100 03/25/18 14:48 03/25/18 16:00 03/25/18 17:16 Temperature 98.4 F Pulse Rate 89 Respiratory Rate 18 Blood Pressure 125/79 Pulse Oximetry 99 99 96 03/25/18 20:00 03/25/18 23:25 03/26/18 00:00 Temperature 98.1 F 98.3 F Pulse Rate 96 H 97 H 91 H Respiratory Rate 12 10 L Blood Pressure 129/53 L 120/79 Pulse Oximetry 98 03/26/18 03:25 03/26/18 04:00 03/26/18 08:00 Temperature 98.2 F Pulse Rate 78 78 72 Respiratory Rate 10 L Blood Pressure 107/64 Pulse Oximetry 03/26/18 08:12 03/26/18 11:06 03/26/18 12:00 Temperature Pulse Rate 68 Respiratory Rate 20 Blood Pressure Pulse Oximetry 99 Intake & Output 03/25/18 03/26/18 03/26/18 18:59 06:59 18:59 Intake Total 3820 / 3820 1528 / 1528 1100 / 1100 Output Total 2735 / 2735 2630 / 2630 Balance 1085 / 1085 -1102 / -1102 1100 / 1100 Weight 94.3 kg Intake: IV 100 / 100 100 / 100 1100 / 1100 NS Inj 1,000 ML @ 30 mls/hr IV. 1000 / 1000 SIG .Q24H [facility] Rx#:[id number] Ancef Inj 1,000 MG In NS Inj 100 / 100 100 / 100 100 / 100 100 ML @ 200 mls/hr IV.SIG Q8H [facility] Rx#:[id number] Oral 720 / 720 800 / 800 Anesthesia Amount 3000 / 3000 Other 628 / 628 Output: Estimated Blood Loss 500 / 500 Urine Amount (Catheter) 2200 / 2200 2600 / 2600 Indwelling Urethral Catheter 2200 / 0 2600 / 2600 Wound Drainage # 1 Posterior Neck KENA Drain Other: Date of Last Bowel Movement 03/20/18 03/20/18 03/20/18 # Bowel Movements 0 0 Narrative: General: awake, alert, no acute distress. Neck: immobilized by [place] collar which appears too large. - Urinary Catheter Management Indwelling Urethral Catheter Cath placed during this visit: yes, but has since been removed by the nurse Reason for continuing: Other continuation reason Insertion date: 03/25/18 Insertion time: 10:23 Removal date: 03/21/18 Removal time: 10:00 Assessment and Plan - Assessment (1) H/O excision of lamina of cervical vertebra for decompression of spinal cord Code(s): Z98.890 - Other specified postprocedural states Status: Acute (2) Cervical stenosis of spinal canal Code(s): M48.02 - Spinal stenosis, cervical region Status: Acute (3) Cervical disc disease with myelopathy Code(s): M50.00 - Cervical disc disorder with myelopathy, unspecified cervical region Status: Acute (4) Postoperative hematoma Status: Acute - Plan maintain kiana collar, cont KENA draining neuro checks and follow up examination Dr. Bueno requesting to refit cervical collar
[2018-03-27] MEDS: Morphine Inj 4 MG/ML Vial IV.PUSH PRN ×2 (02:06→23:30)
[2018-03-27 07:48] LABS: Calcium 8.5 mg/dL (8.5-10.1); Carbon Dioxide 26.4 meq/L (21.0-32.0); Potassium 4.5 meq/L (3.5-5.1)
--- NOTE | 2018-03-27 09:11 | P.PNCC ---
Subjective Subjective Remarks/Hospital Course: 62-year-old very pleasant gentleman who underwent March posterior cervical C2 , C3, C4, C5 and C6 autograft fusion; C2-6 decompressive laminectomy; C3-6 lateral mass/facet segmental fixation. In the morning he felt more weak on the right side. The MRI of the C-spine shows increasing posterior epidural effacement and spinal stenosis. There is worsening spinal cord compression especially at the C2-3 and C3-4 level. This was discussed with the patient by neurosurgeon, with the decision to proceed with conservative management and transfer to ICU and observation. 03/24: T-max 100.9. Currently 100.2.. Remains on nasal cannula. Neurological exam is seen so with right sided weakness but not worsening. Noted yesterday that C-spine MRI which shows some posterior compression especially towards the right. Dr. Bueno also reviewed the MRI with Dr. Ray. Presented options for care which include returning the patient to the operating room for exploration and possible drainage or continued observation in the intensive care unit. Currently plan to observe and ISC. Subjective 03/25: T-max 100.4. Currently 99.1. Patient states he wishes to proceed with surgical intervention. Tentatively planned for tomorrow however if symptomatology worsens notify neurosurgery who is aware. Patient states he is subjectively more weak in the left upper extremity today. Tolerating diet. No bowel movement since 03/20. 03/26: Extubated after procedure yesterday and breathing comfortably. Protects airway well, no complaints of difficulty breathing. Improved movement left upper extremity. 03/27: Strength continues to improve in both upper extremities. Tolerating diet and swallowing without difficulty. Breathing comfortably and no airway problems. Will restart PT and OT. His sensation is good enough that we can DC the Mata and bladder scan if necessary for fullness or lack of voiding. Objective Vital Signs / I&O: Vital Signs 03/26/18 11:06 03/26/18 12:00 03/26/18 14:50 Temperature 98.7 F Pulse Rate 78 Respiratory Rate 20 15 20 Blood Pressure 126/69 Pulse Oximetry 98 03/26/18 15:46 03/26/18 16:00 03/26/18 20:00 Temperature 98.8 F 98.6 F Pulse Rate 78 76 78 Respiratory Rate 13 22 Blood Pressure 128/80 139/86 Pulse Oximetry 98 99 07/09/18 21:57 03/27/18 00:00 03/27/18 04:00 Temperature 98.4 F 97.9 F Pulse Rate 76 73 Respiratory Rate 18 14 12 Blood Pressure 119/70 122/71 Pulse Oximetry 98 98 03/27/18 08:25 Temperature Pulse Rate Respiratory Rate Blood Pressure Pulse Oximetry 97 Intake & Output 03/26/18 03/27/18 03/27/18 18:59 06:59 18:59 Intake Total 1200 / 1200 Output Total 1850 / 1850 1015 / 1015 Balance -650 / -650 -1015 / -1015 Weight 93.9 kg Intake: IV 1200 / 1200 NS Inj 1,000 ML @ 30 mls/hr IV. 1000 / 1000 SIG .Q24H [facility] Rx#:[id number] Ancef Inj 1,000 MG In NS Inj 200 / 200 100 ML @ 200 mls/hr IV.SIG Q8H [facility] Rx#:[id number] Output: Urine Amount (Catheter) 1849 / 1850 1000 / 1000 Indwelling Urethral Catheter 185 / 185 1000 / 1000 Wound Drainage # 1 Posterior Neck KENA Drain Other: Date of Last Bowel Movement 03/20/18 03/20/18 Result Diagrams: 03/25/18 13:15 03/27/18 06:09 Objective Remarks: GENERAL: 62-year-old male, no acute distress SKIN: Warm and dry. HEAD: Atraumatic. Normocephalic. EYES: Pupils equal and round. No conjunctival icterus. No injection or drainage. ENT: No nasal bleeding or discharge. Mucous membranes pink and moist. NECK: Trachea midline. [place] J collar in place, KENA drain. No stridor or obstructive noises. CARDIOVASCULAR: Regular rate and rhythm. S1, S2. No S4. No murmur. No JVD RESPIRATORY: No accessory muscle use. Clear to auscultation. Breath sounds equal bilaterally. Comfortable respiratory pattern. GASTROINTESTINAL: Abdomen soft, non-tender, nondistended. No guarding, bowel sounds active. MUSCULOSKELETAL: Extremities without clubbing, cyanosis, or edema. Warm, well- perfused NEUROLOGICAL: Awake and alert. No obvious cranial nerve deficits. Right upper extremity weakness 4 out of 5. 4 out of 5 right lower extremity. Left upper and lower extremity 4 out of 5 no sensation deficits. Conversant. PSYCHIATRIC: Appropriate mood and affect; insight and judgment normal. Alert, cooperative. Assessment and Plan - Assessment and Plan Plan: Neuro/Psych: Status post posterior cervical C2, C3, C4, C5 and C6 autograft fusion -C2-6 decompressive laminectomy -C3-6 lateral mass/facet segmental fixation Repeat imaging 03/23 C-spine revealed status post laminectomy from C2 through C6 with postsurgical changes causing increasing posterior epidural effacement and spinal stenosis. There is worsening spinal cord compression especially at the C2 -3 and C3-4 level. MRI C Spine - status post laminectomy from C2 through C6 with postsurgical changes causing increasing posterior epidural effacement and spinal stenosis. There is worsening spinal cord compression especially at the C2-3 and C3-4 level. 10 mm T2 hypointense structure in the posterior epidural space at C2-3 which may represent a bony fragment. Posterior subcutaneous fluid collection at the C6 level characteristic of a small seroma or resolving hematoma. Persistent large bony bars characteristic of disc osteophyte complexes at C2-3 and C3-[address] Bueno also reviewed the MRI. Patient underwent evacuation of cervical hematoma 03/25. Acetaminophen 650 p.o. every 4 hours as needed fever Hydrocodone/acetaminophen 10/325 1-2 tablet every 4 hours as needed pain 1 through 10 Morphine sulfate 4 mg IV every 4 hours as needed breakthrough pain CV: Essential hypertension Continue amlodipine 5 mg daily and atenolol 25 mg by mouth daily On NS at 30 cc an hour Resp: Nasal cannula to maintain saturations greater than equal to 92% Incentive spirometry while awake As needed albuterol aerosols every 4 hours as needed dyspnea GI: Hypoalbuminemia Per neurosurgery clear liquid diet Pantoprazole for GI prophylaxis Docusate sodium/senna 1 tablet twice daily for bowel regimen : Mata catheter removed 03/21 Endo: Sliding scale insulin if indicated to maintain euglycemia Renal: History of renal cell carcinoma status post right nephrectomy Acute on chronic kidney disease stage IIIa Stable trend of creatinine noted, with modest improvement of GFR overnight Heme: Monitor CBC daily. Follow trends ID: Monitor for signs and symptomatology of infection MSK: PT/OT evaluate and treat FEN: Replace electrolytes as clinically indicated Access -utilize peripheral IV. Central line not indicated Prophylaxis -GI -pantoprazole -DVT -SCD/pharmacological prophylaxis when okay with neurosurgery Overall impression: Stable hemodynamic and respiratory function status post evacuation of cervical hematoma 2 days ago.. Glucose and blood pressure control are acceptable. Good recovery of upper extremity strength.
[2018-03-27] MEDS: Senna/Docusate Sodium 8.6/50 MG Tablet PO SCH ×4 (09:56→22:50)
[2018-03-27] MEDS: Atenolol 25 MG Tablet PO SCH ×2 (09:56→22:16)
[2018-03-27] MEDS: amLODIPine 5 MG Tablet PO SCH ×2 (09:57→22:16)
[2018-03-27] MEDS: Polyethylene Glycol 3350 17 GM Packet PO SCH ×2 (09:58→22:50)
[2018-03-27] MEDS: Sod Chloride 0.9% Inj 1,000 ML IV.SIG SCH ×2 (11:23→22:17)
--- NOTE | 2018-03-27 18:38 | P.PNNS ---
Subjective Interval history: Patient reports some new numbness and/or paresthesias in the left arm greater than leg today. He states that he has not had this previously. He states that his left arm and leg strength seem to be initially improving after his surgery, now seems a little weaker. He continues to have relatively stable right hemiparesis. Physical Exam Vital signs: Vital Signs 03/26/18 20:00 03/26/18 21:57 03/27/18 00:00 Temperature 98.6 F 98.4 F Pulse Rate 78 76 Respiratory Rate 22 18 14 Blood Pressure 139/86 119/70 Pulse Oximetry 99 98 03/27/18 04:00 03/27/18 08:25 03/27/18 10:01 Temperature 97.9 F Pulse Rate 73 Respiratory Rate 12 20 Blood Pressure 122/71 Pulse Oximetry 98 97 03/27/18 11:03 Temperature Pulse Rate Respiratory Rate 22 Blood Pressure Pulse Oximetry Intake & Output 03/26/18 03/27/18 03/27/18 18:59 06:59 18:59 Intake Total 1200 / 1200 100 / 100 1100 / 1100 Output Total 185 / 1849 1015 / 1015 Balance -650 / -650 -915 / -915 1100 / 1100 Weight 93.9 kg 87.4 kg Intake: IV 1200 / 1200 100 / 100 1100 / 1100 NS Inj 1,000 ML @ 30 mls/hr IV. 1000 / 1000 1000 / 1000 SIG .Q24H [facility] Rx#:[id number] Ancef Inj 1,000 MG In NS Inj 200 / 200 100 / 100 100 / 100 100 ML @ 200 mls/hr IV.SIG Q8H [facility] Rx#:[id number] Output: Urine Amount (Catheter) 1849 1000 / 1000 Indwelling Urethral Catheter 1849 1000 / 1000 Wound Drainage # 1 Posterior Neck KENA Drain Other: Date of Last Bowel Movement 03/20/18 03/20/18 Narrative: Sitting up in chair with cervical collar Awake and alert Answers simple questions appropriate Follows commands well Reports mild numbness, paresthesias to light touch left upper and lower extremity. No definite numbness right upper and lower extremity to light touch Strength is mostly 3+/5 left deltoids, biceps, triceps with 2-3/5 left hand intrinsics and extensor digitorum. Strength is mostly 3/5 throughout the left lower extremity Motor function is 2/5 throughout most of the right upper and lower extremity which he states is stable from previous assessments. - Urinary Catheter Management Indwelling Urethral Catheter Cath placed during this visit: yes, but has since been removed by the nurse Reason for continuing: Other continuation reason Insertion date: 03/25/18 Insertion time: 10:23 Removal date: 03/21/18 Removal time: 10:00 Assessment and Plan - Assessment (1) H/O excision of lamina of cervical vertebra for decompression of spinal cord Code(s): Z98.890 - Other specified postprocedural states Status: Acute (2) Cervical stenosis of spinal canal Code(s): M48.02 - Spinal stenosis, cervical region Status: Acute (3) Cervical disc disease with myelopathy Code(s): M50.00 - Cervical disc disorder with myelopathy, unspecified cervical region Status: Acute (4) Postoperative hematoma Status: Acute - Plan Impression: 1. Patient reports some new numbness and possibly some recurrent weakness in the left upper and lower extremity today. Now status post initial cervical decompression with return to the OR for epidural hematoma evacuation. Plan: Discussed with patient MRI cervical spine requested to assess for recurrent spinal cord compression. Discontinue drain Continue cervical collar
--- NOTE | 2018-03-27 22:19 | MR ---
EXAM DATE: 03/27/2018 10:02 PM EDT AGE/SEX: 62 years / Male INDICATIONS: Myelopathy. Post op evacuation prior post op epidural hematoma. CLINICAL DATA: This is the patient's initial encounter. Patient reports that signs and symptoms have been present for 1 day and indicates a pain score of 9/10. MEDICAL/SURGICAL HISTORY: Hypertension. Renal cancer. . Hip replacement, Nephrectomy. COMPARISON: [facility] [place], CERVICAL SPINE W/O CONTRAST, 03/23/2018. . TECHNIQUE: Multiplanar, multisequence MRI examination of the cervical spine was performed without co ntrast. FINDINGS: Noncontrast study was done. Patient has had laminectomy and fusion procedure with posterio r instrumentation from C2 through C6. Alignment is unchanged, near-anatomic. Heterogeneous marrow sig nal again noted of each vertebral body, not significantly changed. C2-C3: Desiccated disc with a posterior disc osteophyte complex again seen causing moderate to sever e spinal stenosis. Previously seen gas bubble or bone fragment has been removed. Bilateral uncoverteb ral and facet osteoarthritis again noted with moderate to severe bilateral foraminal stenosis. C3-C4: Desiccated disc with right paracentral disc osteochondral complex again seen causing moderate to severe spinal stenosis. There is short segment T2 cord signal abnormality. Disc signal intensity is heterogeneous. C4-C5: Disc signal heterogeneity again noted. Small posterior disc osteophyte complex causing mild s jessica stenosis. No cord compression or cord signal abnormality. C5-C6: Slightly desiccated disc. Small central to right paracentral disc osteophyte complex causing mild spinal stenosis. No cord compression or cord signal abnormality. Disc has mild signal heterogene ity. C6-C7: The disc is desiccated and has mild loss of height, all typical-appearing. Very small, broad/ diffuse disc osteophyte complex and moderate bilateral uncovertebral and facet osteoarthritis again n oted with mild foraminal and spinal stenosis. No cord compression or cord signal abnormality. C7-T1: The disc is desiccated and has severe loss of height. Reactive-appearing endplate marrow lea a. There is a moderate-sized, broad/diffuse disc osteophyte complex and severe bilateral facet osteoa rthritis. There is mild to moderate spinal stenosis and short segment cord compression. No cord signa l abnormality seen. Moderate to severe bilateral foraminal stenosis. CONCLUSION: 1. On these noncontrast images I don't clearly see an abscess. 2. Persistent nonspecific marrow signal heterogeneity. There is also persistent heterogeneity of the intervertebral discs, especially see/C5 but also C3/C4 and C5/C6. 3. Central and right paracentral disc osteophyte complexes again seen at C2/C3 and C3/C4 with spinal stenosis. 4. Resolved gas bubbles and/or bone fragments. Electronically signed by: Juan Carlos Argueta MD 03/27/2018 10:18 PM EDT
[2018-03-28 03:49] LABS: Calcium 8.4 mg/dL (8.5-10.1); Carbon Dioxide 25.5 meq/L (21.0-32.0); Potassium 4.4 meq/L (3.5-5.1)
--- NOTE | 2018-03-28 09:47 | P.PNCC ---
Subjective Subjective Remarks/Hospital Course: 62-year-old very pleasant gentleman who underwent March posterior cervical C2 , C3, C4, C5 and C6 autograft fusion; C2-6 decompressive laminectomy; C3-6 lateral mass/facet segmental fixation. In the morning he felt more weak on the right side. The MRI of the C-spine shows increasing posterior epidural effacement and spinal stenosis. There is worsening spinal cord compression especially at the C2-3 and C3-4 level. This was discussed with the patient by neurosurgeon, with the decision to proceed with conservative management and transfer to ICU and observation. 03/24: T-max 100.9. Currently 100.2.. Remains on nasal cannula. Neurological exam is seen so with right sided weakness but not worsening. Noted yesterday that C-spine MRI which shows some posterior compression especially towards the right. Dr. Bueno also reviewed the MRI with Dr. Ray. Presented options for care which include returning the patient to the operating room for exploration and possible drainage or continued observation in the intensive care unit. Currently plan to observe and ISC. Subjective 03/25: T-max 100.4. Currently 99.1. Patient states he wishes to proceed with surgical intervention. Tentatively planned for tomorrow however if symptomatology worsens notify neurosurgery who is aware. Patient states he is subjectively more weak in the left upper extremity today. Tolerating diet. No bowel movement since 03/20. 03/26: Extubated after procedure yesterday and breathing comfortably. Protects airway well, no complaints of difficulty breathing. Improved movement left upper extremity. 03/27: Strength continues to improve in both upper extremities. Tolerating diet and swallowing without difficulty. Breathing comfortably and no airway problems. Will restart PT and OT. His sensation is good enough that we can DC the Mata and bladder scan if necessary for fullness or lack of voiding. 03/28: Protects airway, no obstruction, breathing comfortably. Started again with physical therapy. Transfer to floor when okay with neurosurgery. Objective Vital Signs / I&O: Vital Signs 03/27/18 10:00 03/27/18 10:01 03/27/18 11:03 Temperature Pulse Rate 84 Respiratory Rate 20 22 Blood Pressure Pulse Oximetry 03/27/18 12:00 03/27/18 14:00 03/27/18 16:00 Temperature 98.2 F 98.8 F Pulse Rate 84 76 84 Respiratory Rate 30 H 17 Blood Pressure 130/80 133/89 Pulse Oximetry 03/27/18 18:00 03/27/18 19:15 03/27/18 19:32 Temperature Pulse Rate 88 Respiratory Rate 21 Blood Pressure Pulse Oximetry 98 03/27/18 20:00 03/27/18 21:12 03/27/18 22:00 Temperature 98.8 F Pulse Rate 86 80 79 Respiratory Rate 20 Blood Pressure 122/74 Pulse Oximetry 98 03/28/18 00:00 03/28/18 01:05 03/28/18 02:00 Temperature 98.7 F Pulse Rate 85 90 Respiratory Rate 14 15 Blood Pressure 124/68 Pulse Oximetry 03/28/18 04:00 03/28/18 06:00 03/28/18 08:15 Temperature 98.7 F Pulse Rate 83 72 Respiratory Rate 12 Blood Pressure 111/63 Pulse Oximetry 100 Intake & Output 03/27/18 03/28/18 03/28/18 18:59 06:59 18:59 Intake Total 1600 / 1600 1065 / 1065 Output Total 1280 / 1280 1045 / 1045 150 / 150 Balance 320 / 320 20 / 20 -150 / -150 Weight 87.4 kg 92.9 kg Intake: IV 1100 / 1100 345 / 345 NS Inj 1,000 ML @ 30 mls/hr IV. 1000 / 1000 345 / 345 SIG .Q24H JONATHAN Rx#:[id number] Ancef Inj 1,000 MG In NS Inj 100 / 100 100 ML @ 200 mls/hr IV.SIG Q8H JONATHAN Rx#:[id number] Oral 500 / 500 720 / 720 Output: Urine Amount (Catheter) 1250 / 1250 1025 / 1025 150 / 150 Indwelling Urethral Catheter 1250 / 1250 1025 / 1025 150 / 150 Wound Drainage 30 / 30 20 / 20 # 1 Posterior Neck KENA Drain 30 / 30 20 / 20 Other: Date of Last Bowel Movement 03/22/18 03/28/18 # Bowel Movements 0 1 1 Result Diagrams: 03/25/18 13:15 03/28/18 02:41 Objective Remarks: GENERAL: 62-year-old male, no acute distress SKIN: Warm and dry. HEAD: Atraumatic. Normocephalic. EYES: Pupils equal and round. No conjunctival icterus. No injection or drainage. ENT: No nasal bleeding or discharge. Mucous membranes pink and moist. NECK: Trachea midline. [place] J collar in place, KENA drain. No stridor or obstructive noises. CARDIOVASCULAR: Regular rate and rhythm. S1, S2. No S4. No murmur. No JVD RESPIRATORY: No accessory muscle use. Clear to auscultation. Breath sounds equal bilaterally. Comfortable respiratory pattern. GASTROINTESTINAL: Abdomen soft, non-tender, nondistended. No guarding, bowel sounds active. MUSCULOSKELETAL: Extremities without clubbing, cyanosis, or edema. Warm, well- perfused NEUROLOGICAL: Awake and alert. No obvious cranial nerve deficits. Right upper extremity weakness 3 out of 5. 3 out of 5 right lower extremity. Left upper and lower extremity 4 out of 5 no sensation deficits. Conversant. PSYCHIATRIC: Appropriate mood and affect; insight and judgment normal. Alert, cooperative. Assessment and Plan - Assessment and Plan Plan: Neuro/Psych: Status post posterior cervical C2, C3, C4, C5 and C6 autograft fusion -C2-6 decompressive laminectomy -C3-6 lateral mass/facet segmental fixation Repeat imaging 03/23 C-spine revealed status post laminectomy from C2 through C6 with postsurgical changes causing increasing posterior epidural effacement and spinal stenosis. There is worsening spinal cord compression especially at the C2 -3 and C3-4 level. MRI C Spine - status post laminectomy from C2 through C6 with postsurgical changes causing increasing posterior epidural effacement and spinal stenosis. There is worsening spinal cord compression especially at the C2-3 and C3-4 level. 10 mm T2 hypointense structure in the posterior epidural space at C2-3 which may represent a bony fragment. Posterior subcutaneous fluid collection at the C6 level characteristic of a small seroma or resolving hematoma. Persistent large bony bars characteristic of disc osteophyte complexes at C2-3 and C3-[address] Bueno also reviewed the MRI. Patient underwent evacuation of cervical hematoma 03/25. New left side numbness 03/27, MRI cervical spine ordered. Acetaminophen 650 p.o. every 4 hours as needed fever Hydrocodone/acetaminophen 10/325 1-2 tablet every 4 hours as needed pain 1 through 10 Morphine sulfate 4 mg IV every 4 hours as needed breakthrough pain CV: Essential hypertension Continue amlodipine 5 mg daily and atenolol 25 mg by mouth daily On NS at 30 cc an hour Resp: Nasal cannula to maintain saturations greater than equal to 92% Incentive spirometry while awake As needed albuterol aerosols every 4 hours as needed dyspnea GI: Hypoalbuminemia Per neurosurgery clear liquid diet Pantoprazole for GI prophylaxis Docusate sodium/senna 1 tablet twice daily for bowel regimen : Mata catheter removed 03/21 Endo: Sliding scale insulin if indicated to maintain euglycemia Renal: History of renal cell carcinoma status post right nephrectomy Acute on chronic kidney disease stage IIIa Stable trend of creatinine noted, with modest improvement of GFR overnight Heme: Monitor CBC daily. Follow trends ID: Monitor for signs and symptomatology of infection MSK: PT/OT evaluate and treat FEN: Replace electrolytes as clinically indicated Access -utilize peripheral IV. Central line not indicated Prophylaxis -GI -pantoprazole -DVT -SCD/pharmacological prophylaxis when okay with neurosurgery Overall impression: Stable hemodynamic and respiratory function status post evacuation of cervical hematoma 3 days ago. Glucose and blood pressure control are acceptable. Good recovery of upper extremity strength. Mata is out, need to bladder scan for any discomfort - retention may be a problem.
--- NOTE | 2018-03-28 11:00 | P.PNNS ---
Subjective Interval history: The patient this morning is awake and alert in bed. He is quite upset stating that when he came into the hospital he was only to be here for three days and he walked in. Now he says he is not even able to get up and walk. He says he wants answers as to what is going on with him. Nursing reports that he did complain of numbness and tingling to the left hand this morning. It does appear with evaluation the patient has some improvement in his motor strength on the left side for this practitioner. <Jaylen Powers E - Last Filed: 03/28/18 11:07> Physical Exam Vital signs: Vital Signs 03/27/18 11:03 03/27/18 12:00 03/27/18 14:00 Temperature 98.2 F Pulse Rate 84 76 Respiratory Rate 22 30 H Blood Pressure 130/80 Pulse Oximetry 03/27/18 16:00 03/27/18 18:00 03/27/18 19:15 Temperature 98.8 F Pulse Rate 84 88 Respiratory Rate 17 Blood Pressure 133/89 Pulse Oximetry 98 03/27/18 19:32 03/27/18 20:00 03/27/18 21:12 Temperature 98.8 F Pulse Rate 86 80 Respiratory Rate 21 20 Blood Pressure 122/74 Pulse Oximetry 98 03/27/18 22:00 03/28/18 00:00 03/28/18 01:05 Temperature 98.7 F Pulse Rate 79 85 Respiratory Rate 14 15 Blood Pressure 124/68 Pulse Oximetry 03/28/18 02:00 03/28/18 04:00 03/28/18 06:00 Temperature 98.7 F Pulse Rate 90 83 72 Respiratory Rate 12 Blood Pressure 111/63 Pulse Oximetry 03/28/18 08:15 Temperature Pulse Rate Respiratory Rate Blood Pressure Pulse Oximetry 100 Intake & Output 03/27/18 03/28/18 03/28/18 18:59 06:59 18:59 Intake Total 1600 / 1600 1065 / 1065 Output Total 1280 / 1280 1045 / 1045 150 / 150 Balance 320 / 320 20 / 20 -150 / -150 Weight 87.4 kg 92.9 kg Intake: IV 1100 / 1100 345 / 345 NS Inj 1,000 ML @ 30 mls/hr IV. 1000 / 1000 345 / 345 SIG .Q24H JONATHAN Rx#:[id number] Ancef Inj 1,000 MG In NS Inj 100 / 100 100 ML @ 200 mls/hr IV.SIG Q8H JONATHAN Rx#:[id number] Oral 500 / 500 720 / 720 Output: Urine Amount (Catheter) 1250 / 1250 1025 / 1025 150 / 150 Indwelling Urethral Catheter 1250 / 1250 1025 / 1025 150 / 150 Wound Drainage # 1 Posterior Neck KENA Drain Other: Date of Last Bowel Movement 03/22/18 03/28/18 # Bowel Movements 0 1 1 Narrative: GENERAL: The patient is awake & alert in bed. He is upset w/not knowing what is going on w/him. His affect is slightly agitated but he does readily interact. He is not in any apparent distress. HEENT: Normocephalic, atraumatic. NECK: [place] J cervical collar in place. No JVD. Trachea midline. MUSCULOSKELETAL: Moves all extremities to command w/varying degrees of weakness. No evident clubbing or deformity. NEUROLOGICAL: AAOx3. Speech clear & appropriate. Follows simple commands w/o difficulty. Sensation is decreased to light touch to all extremities R>L. Motor strength: LUE: Deltoid 4 to 4+/5, bicep 4 to 4+/5, tricep 3 to 3+/5, wrist flexors & extensors 4 to 4+/5, hand intrinsics & extensor digitorum 2 to 2+/5. RUE: Essentially 2/5 to all major flexion & extension muscle groups. LLE: Iliopsoas 4 to 4+/5, hamstring 4 to 4+/5, quadriceps 3+ to 4/5, tibialis anterior 3+/5, gastrocsoleus 3/5, extensor hallucis longus 3/5. RLE: Essentially 2/5 to all major flexion & extension muscle groups. - Urinary Catheter Management Indwelling Urethral Catheter Cath placed during this visit: yes, but has since been removed by the nurse Reason for continuing: Other continuation reason Insertion date: 03/25/18 Insertion time: 10:23 Removal date: 03/21/18 Removal time: 10:00 <Jaylen Powers - Last Filed: 03/28/18 11:07> Vital signs: Vital Signs 03/31/18 17:39 03/31/18 18:55 03/31/18 19:00 Temperature 98.4 F Pulse Rate 89 Respiratory Rate 18 18 18 Blood Pressure 107/68 Pulse Oximetry 96 03/31/18 21:53 03/31/18 22:23 04/01/18 00:20 Temperature 98.9 F Pulse Rate 97 H Respiratory Rate 18 18 18 Blood Pressure 132/79 Pulse Oximetry 97 04/01/18 01:09 04/01/18 03:35 04/01/18 08:00 Temperature 98.9 F 98.6 F Pulse Rate 88 88 Respiratory Rate 18 18 20 Blood Pressure 110/59 L 110/63 Pulse Oximetry 96 95 04/01/18 12:00 04/01/18 12:43 Temperature 98.1 F Pulse Rate 75 Respiratory Rate 15 Blood Pressure 105/62 Pulse Oximetry 97 Intake & Output 03/31/18 04/01/18 04/01/18 18:59 06:59 18:59 Intake Total 860 / 860 480 / 480 Output Total 1200 / 1200 1000 / 1000 Balance -340 / -340 -520 / -520 Weight 73.8 kg Intake: Oral 860 / 860 480 / 480 Output: Urine 1200 / 1200 Urine Amount (Catheter) 1000 / 1000 Condom 1000 / 1000 Other: Date of Last Bowel Movement 03/31/18 04/01/18 # Bowel Movements 2 1 - Urinary Catheter Management Indwelling Urethral Catheter Cath placed during this visit: no <Cade Leger - Last Filed: 04/01/18 16:44> Assessment and Plan - Plan Impression: 1. Patient reports some new numbness and possibly some recurrent weakness in the left upper and lower extremity today. Now status post initial cervical decompression with return to the OR for epidural hematoma evacuation. - Dr Leger at 1838 Patient slightly agitated over his condition. He is able to move all extremities to varying degrees. For this practitioner there seems to be improvement in his left-sided motor strength but the right side is w/o change. The patient endorses decreased sensation through the extremities w/R>L. KENA drain output of 50 mL for the past 24 hrs as of shift change this morning. Neck wound culture x2 () w/o growth x72 hrs on final . MRI cervical spine : 1. On these noncontrast images I don't clearly see an abscess. 2. Persistent nonspecific marrow signal heterogeneity. There is also persistent heterogeneity of the intervertebral discs, especially see/C5 but also C3/C4 and C5/C6. 3. Central and right paracentral disc osteophyte complexes again seen at C2/C3 and C3/C4 with spinal stenosis. 4. Resolved gas bubbles and/or bone fragments. Plan: Discussed with patient Continue cervical collar <Jaylen Powers - Last Filed: 03/28/18 11:07> - Assessment (1) H/O excision of lamina of cervical vertebra for decompression of spinal cord Code(s): Z98.890 - Other specified postprocedural states Status: Acute (2) Cervical stenosis of spinal canal Code(s): M48.02 - Spinal stenosis, cervical region Status: Acute (3) Cervical disc disease with myelopathy Code(s): M50.00 - Cervical disc disorder with myelopathy, unspecified cervical region Status: Acute (4) Postoperative hematoma Status: Acute - Attending Attestation The exam, history, and the medical decision-making described in the above note were completed with the assistance of the mid-level provider. I reviewed and agree with the findings presented. I attest that I had a [id number] encounter with the patient on the same day, and personally performed and documented my assessment and findings in the medical record. <Cade Leger - Last Filed: 04/01/18 16:44>
[2018-03-28] MEDS: Atenolol 25 MG Tablet PO SCH (11:42)
[2018-03-28] MEDS: Senna/Docusate Sodium 8.6/50 MG Tablet PO SCH ×2 (11:42→20:09)
[2018-03-28] MEDS: amLODIPine 5 MG Tablet PO SCH (11:43)
[2018-03-28] MEDS: Polyethylene Glycol 3350 17 GM Packet PO SCH ×2 (12:18→22:14)
[2018-03-28] MEDS: Morphine Inj 4 MG/ML Vial IV.PUSH PRN (20:38)
[2018-03-29 07:18] LABS: Carbon Dioxide 27.9 meq/L (21.0-32.0); Potassium 5.1 meq/L (3.5-5.1)
--- NOTE | 2018-03-29 07:34 | P.PNCC ---
Subjective Subjective Remarks/Hospital Course: 62-year-old very pleasant gentleman who underwent March posterior cervical C2 , C3, C4, C5 and C6 autograft fusion; C2-6 decompressive laminectomy; C3-6 lateral mass/facet segmental fixation. In the morning he felt more weak on the right side. The MRI of the C-spine shows increasing posterior epidural effacement and spinal stenosis. There is worsening spinal cord compression especially at the C2-3 and C3-4 level. This was discussed with the patient by neurosurgeon, with the decision to proceed with conservative management and transfer to ICU and observation. 03/24: T-max 100.9. Currently 100.2.. Remains on nasal cannula. Neurological exam is seen so with right sided weakness but not worsening. Noted yesterday that C-spine MRI which shows some posterior compression especially towards the right. Dr. Bueno also reviewed the MRI with Dr. Ray. Presented options for care which include returning the patient to the operating room for exploration and possible drainage or continued observation in the intensive care unit. Currently plan to observe and ISC. Subjective 03/25: T-max 100.4. Currently 99.1. Patient states he wishes to proceed with surgical intervention. Tentatively planned for tomorrow however if symptomatology worsens notify neurosurgery who is aware. Patient states he is subjectively more weak in the left upper extremity today. Tolerating diet. No bowel movement since 03/20. 03/26: Extubated after procedure yesterday and breathing comfortably. Protects airway well, no complaints of difficulty breathing. Improved movement left upper extremity. 03/27: Strength continues to improve in both upper extremities. Tolerating diet and swallowing without difficulty. Breathing comfortably and no airway problems. Will restart PT and OT. His sensation is good enough that we can DC the Mata and bladder scan if necessary for fullness or lack of voiding. 03/28: Protects airway, no obstruction, breathing comfortably. Started again with physical therapy. Transfer to floor when okay with neurosurgery. 03/29: Alert, awake, swallows comfortably, no airway problems. Transfer to floor if acceptable with neurosurgical service. Objective Vital Signs / I&O: Vital Signs 03/28/18 08:00 03/28/18 08:15 03/28/18 10:00 Temperature 98.4 F Pulse Rate 68 78 Respiratory Rate 12 Blood Pressure 147/86 H Pulse Oximetry 99 100 03/28/18 12:00 03/28/18 14:00 03/28/18 16:00 Temperature 98.8 F 98.4 F Pulse Rate 88 83 74 Respiratory Rate 11 L 12 Blood Pressure 158/75 H 116/67 Pulse Oximetry 100 99 03/28/18 18:00 03/28/18 19:09 03/28/18 19:38 Temperature Pulse Rate 79 Respiratory Rate 16 Blood Pressure Pulse Oximetry 98 03/28/18 20:00 03/28/18 20:08 03/28/18 22:10 Temperature 99.7 F H Pulse Rate 83 Respiratory Rate 21 21 21 Blood Pressure 113/66 Pulse Oximetry 99 03/29/18 00:00 03/29/18 04:00 03/29/18 05:12 Temperature 99.7 F H 101 F H Pulse Rate 81 97 H Respiratory Rate 16 20 24 Blood Pressure 113/73 141/87 H Pulse Oximetry 98 97 03/29/18 06:00 Temperature Pulse Rate 97 H Respiratory Rate Blood Pressure Pulse Oximetry Intake & Output 03/28/18 03/29/18 03/29/18 18:59 06:59 18:59 Intake Total 240 / 240 3968 / 3968 Output Total 2725 / 2725 2695 / 2695 Balance -2485 / -2485 1273 / 1273 Weight 89.7 kg Intake: Oral 240 / 240 340 / 340 Anesthesia Amount 3000 / 3000 Other 628 / 628 Output: Urine 825 / 825 825 / 825 Estimated Blood Loss 500 / 500 Urine Amount (Catheter) 1900 / 1900 1350 / 1350 Condom 1600 / 1600 1200 / 1200 Indwelling Urethral Catheter 300 / 300 150 / 150 Wound Drainage # 1 Posterior Neck KENA Drain Other: # Incontinent Voids 2 2 Date of Last Bowel Movement 03/28/18 03/28/18 # Bowel Movements 1 0 Result Diagrams: 03/25/18 13:15 03/29/18 06:19 Objective Remarks: GENERAL: 62-year-old male, no acute distress SKIN: Warm and dry. HEAD: Atraumatic. Normocephalic. EYES: Pupils equal and round. No conjunctival icterus. No injection or drainage. ENT: No nasal bleeding or discharge. Mucous membranes pink and moist. NECK: Trachea midline. [place] J collar in place, KENA drain. No stridor or obstructive noises. CARDIOVASCULAR: Regular rate and rhythm. S1, S2. No S4. No murmur. No JVD RESPIRATORY: No accessory muscle use. Clear to auscultation. Breath sounds equal bilaterally. Comfortable respiratory pattern. GASTROINTESTINAL: Abdomen soft, non-tender, nondistended. No guarding, bowel sounds active. MUSCULOSKELETAL: Extremities without clubbing, cyanosis, or edema. Warm, well- perfused NEUROLOGICAL: Awake and alert. Right upper extremity 3+ out of 5. 3 out of 5 right lower extremity. Left upper and lower extremity 4 out of 5 no sensation deficits. Conversant. PSYCHIATRIC: Appropriate mood and affect; insight and judgment normal. Alert, cooperative. Assessment and Plan - Assessment and Plan Plan: Neuro/Psych: Status post posterior cervical C2, C3, C4, C5 and C6 autograft fusion -C2-6 decompressive laminectomy -C3-6 lateral mass/facet segmental fixation Repeat imaging 03/23 C-spine revealed status post laminectomy from C2 through C6 with postsurgical changes causing increasing posterior epidural effacement and spinal stenosis. There is worsening spinal cord compression especially at the C2 -3 and C3-4 level. MRI C Spine - status post laminectomy from C2 through C6 with postsurgical changes causing increasing posterior epidural effacement and spinal stenosis. There is worsening spinal cord compression especially at the C2-3 and C3-4 level. 10 mm T2 hypointense structure in the posterior epidural space at C2-3 which may represent a bony fragment. Posterior subcutaneous fluid collection at the C6 level characteristic of a small seroma or resolving hematoma. Persistent large bony bars characteristic of disc osteophyte complexes at C2-3 and C3-[address] Bueno also reviewed the MRI. Patient underwent evacuation of cervical hematoma 03/25. New left side numbness 03/27, MRI cervical spine ordered. Acetaminophen 650 p.o. every 4 hours as needed fever Hydrocodone/acetaminophen 10/325 1-2 tablet every 4 hours as needed pain 1 through 10 Morphine sulfate 4 mg IV every 4 hours as needed breakthrough pain CV: Essential hypertension Continue amlodipine 5 mg daily and atenolol 25 mg by mouth daily Resp: Nasal cannula to maintain saturations greater than equal to 92% Incentive spirometry while awake As needed albuterol aerosols every 4 hours as needed dyspnea GI: Hypoalbuminemia Per neurosurgery clear liquid diet Pantoprazole for GI prophylaxis Docusate sodium/senna 1 tablet twice daily for bowel regimen : Mata catheter removed 03/21 Endo: Sliding scale insulin if indicated to maintain euglycemia Renal: History of renal cell carcinoma status post right nephrectomy Acute on chronic kidney disease stage IIIa Stable trend of creatinine noted, with modest improvement of GFR overnight Heme: Monitor CBC daily. Follow trends ID: Monitor for signs and symptomatology of infection MSK: PT/OT evaluate and treat FEN: Replace electrolytes as clinically indicated Access -utilize peripheral IV. Central line not indicated Prophylaxis -GI -pantoprazole -DVT -SCD/pharmacological prophylaxis when okay with neurosurgery Overall impression: Stable hemodynamic and respiratory function status post evacuation of cervical hematoma 4 days ago. Glucose and blood pressure control are acceptable. Good recovery of upper extremity strength. Mata is out, need to bladder scan for any discomfort - retention may be a problem.
[2018-03-29] MEDS: amLODIPine 5 MG Tablet PO SCH (08:14)
[2018-03-29] MEDS: Atenolol 25 MG Tablet PO SCH (08:14)
[2018-03-29] MEDS: Senna/Docusate Sodium 8.6/50 MG Tablet PO SCH ×2 (08:14→20:49)
[2018-03-29] MEDS: Sod Chloride 0.9% Inj 1,000 ML IV.SIG SCH ×2 (08:15→08:16)
[2018-03-29] MEDS: Polyethylene Glycol 3350 17 GM Packet PO SCH ×2 (08:16→20:49)
--- NOTE | 2018-03-29 10:02 | P.PNNS ---
Subjective Interval history: 03/29: doing well, reports extremity strength slowly improving, no worsening. reports pain controlled, comfortable in collar. Physical Exam Vital signs: Vital Signs 03/28/18 10:00 03/28/18 12:00 03/28/18 14:00 Temperature 98.8 F Pulse Rate 78 88 83 Respiratory Rate 11 L Blood Pressure 158/75 H Pulse Oximetry 100 03/28/18 16:00 03/28/18 18:00 03/28/18 19:09 Temperature 98.4 F Pulse Rate 74 79 Respiratory Rate 12 Blood Pressure 116/67 Pulse Oximetry 99 98 03/28/18 19:38 03/28/18 20:00 03/28/18 20:08 Temperature 99.7 F H Pulse Rate 83 Respiratory Rate 16 21 21 Blood Pressure 113/66 Pulse Oximetry 99 03/28/18 22:10 03/29/18 00:00 03/29/18 04:00 Temperature 99.7 F H 101 F H Pulse Rate 81 97 H Respiratory Rate 21 16 20 Blood Pressure 113/73 141/87 H Pulse Oximetry 98 97 03/29/18 05:12 03/29/18 06:00 03/29/18 08:00 Temperature 100.2 F H Pulse Rate 97 H 111 H Respiratory Rate 24 20 Blood Pressure 116/60 Pulse Oximetry 98 03/29/18 08:13 Temperature Pulse Rate Respiratory Rate Blood Pressure Pulse Oximetry 98 Intake & Output 03/28/18 03/29/18 03/29/18 18:59 06:59 18:59 Intake Total 240 / 240 4623 / 4623 Output Total 2725 / 2725 2695 / 2695 Balance -2485 / -2485 1928 / 1928 Weight 89.7 kg Intake: IV 655 / 655 NS Inj 1,000 ML @ 30 mls/hr IV. 655 / 655 SIG .Q24H JONATHAN Rx#:[id number] Oral 240 / 240 340 / 340 Anesthesia Amount 3000 / 3000 Other 628 / 628 Output: Urine 825 / 825 825 / 825 Estimated Blood Loss 500 / 500 Urine Amount (Catheter) 1900 / 1900 1350 / 1350 Condom 1600 / 1600 1200 / 1200 Indwelling Urethral Catheter 300 / 300 150 / 150 Wound Drainage 20 / 20 # 1 Posterior Neck KENA Drain Other: # Incontinent Voids 2 2 Date of Last Bowel Movement 03/28/18 03/28/18 03/28/18 # Bowel Movements 1 0 Narrative: GENERAL: The patient is awake & alert in bed. Appearing comfortable in no acute distress and being fed his breakfast. HEENT: Normocephalic, atraumatic. NECK: [place] J cervical collar in place. No JVD. Trachea midline. Posterior wound with clean and dry [place] dressing. MUSCULOSKELETAL: Moves all extremities to command w/varying degrees of weakness right worse than left, patient reports no changes in strength. No evident clubbing or deformity. NEUROLOGICAL: AAOx3. Speech clear & appropriate. Follows simple commands w/o difficulty. - Urinary Catheter Management Indwelling Urethral Catheter Cath placed during this visit: yes, but has since been removed by the nurse Reason for continuing: Other continuation reason Insertion date: 03/25/18 Insertion time: 10:23 Removal date: 03/21/18 Removal time: 10:00 Condom Cath placed during this visit: no Assessment and Plan - Assessment (1) H/O excision of lamina of cervical vertebra for decompression of spinal cord Code(s): Z98.890 - Other specified postprocedural states Status: Acute (2) Cervical stenosis of spinal canal Code(s): M48.02 - Spinal stenosis, cervical region Status: Acute (3) Cervical disc disease with myelopathy Code(s): M50.00 - Cervical disc disorder with myelopathy, unspecified cervical region Status: Acute (4) Postoperative hematoma Status: Acute - Plan s/p redo cervical laminectomy for evacuation of postoperative hematoma cervical myelopathy MRI cervical spine : 1. On these noncontrast images I don't clearly see an abscess. 2. Persistent nonspecific marrow signal heterogeneity. There is also persistent heterogeneity of the intervertebral discs, especially see/C5 but also C3/C4 and C5/C6. 3. Central and right paracentral disc osteophyte complexes again seen at C2/C3 and C3/C4 with spinal stenosis. 4. Resolved gas bubbles and/or bone fragments. Plan: doing well cont [place] collar at all times, PT, OT, rehab efforts, try for discharge to [facility] per patient request f/u MRI Cervical spine results again reviewed with patient, cont daily dressing changes and daily wound monitoring, pt understands, all questions answered
[2018-03-30] MEDS: Morphine Inj 4 MG/ML Vial IV.PUSH PRN (04:33)
[2018-03-30] MEDS: amLODIPine 5 MG Tablet PO SCH (08:51)
[2018-03-30] MEDS: Atenolol 25 MG Tablet PO SCH (08:51)
[2018-03-30] MEDS: Senna/Docusate Sodium 8.6/50 MG Tablet PO SCH ×2 (08:51→20:21)
[2018-03-30] MEDS: Polyethylene Glycol 3350 17 GM Packet PO SCH ×2 (08:52→20:21)
--- NOTE | 2018-03-30 11:22 | P.PNIM ---
Subjective Interval history: The patient said that he just started working with physical therapy. He said that his right arm is getting a little bit stronger. He said he still cannot walk. He has been tolerating a diet. He denies any shortness of breath. He has been having bowel movements. Physical Exam Vital signs: Vital Signs 03/29/18 12:00 03/29/18 14:00 03/29/18 19:58 Temperature 100.0 F H 99.4 F Pulse Rate 98 H 96 H 85 Respiratory Rate 18 18 Blood Pressure 120/68 113/62 Pulse Oximetry 99 98 03/29/18 23:59 03/30/18 04:11 03/30/18 08:00 Temperature 100.7 F H 98.5 F Pulse Rate 113 H 97 H Respiratory Rate 18 18 Blood Pressure 124/68 108/63 Pulse Oximetry 96 97 95 03/30/18 08:48 Temperature 98.9 F Pulse Rate 99 H Respiratory Rate 17 Blood Pressure 137/75 Pulse Oximetry 95 Intake & Output 03/29/18 03/30/18 03/30/18 18:59 06:59 18:59 Intake Total 480 / 480 480 / 480 Output Total 1000 / 1000 950 / 950 Balance -520 / -520 -470 / -470 Weight 75.7 kg Intake: Oral 480 / 480 480 / 480 Output: Urine Amount (Catheter) 1000 / 1000 950 / 950 Condom 1000 / 1000 950 / 950 Other: Date of Last Bowel Movement 03/28/18 # Bowel Movements 0 Narrative: GENERAL: No acute distress SKIN: Warm and dry. HEAD: Atraumatic. Normocephalic. EYES: Pupils equal and round. No conjunctival icterus. No injection or drainage. ENT: No nasal bleeding or discharge. Mucous membranes pink and moist. NECK: Trachea midline. [place] J collar in place, KENA drain. No stridor or obstructive noises. CARDIOVASCULAR: Regular rate and rhythm. S1, S2. No S4. No murmur. No JVD RESPIRATORY: No accessory muscle use. Clear to auscultation. Breath sounds equal bilaterally. Comfortable respiratory pattern. GASTROINTESTINAL: Abdomen soft, non-tender, nondistended. No guarding, bowel sounds active. MUSCULOSKELETAL: Extremities without clubbing, cyanosis, or edema. Warm, well- perfused NEUROLOGICAL: Awake and alert. Right upper extremity 3+ out of 5. 3 out of 5 right lower extremity. Left upper and lower extremity 4 out of 5 no sensation deficits. Conversant. PSYCHIATRIC: Appropriate mood and affect; insight and judgment normal. Alert, cooperative. - Urinary Catheter Management Indwelling Urethral Catheter Cath placed during this visit: yes, but has since been removed by the nurse Reason for continuing: Other continuation reason Insertion date: 03/25/18 Insertion time: 10:23 Removal date: 03/21/18 Removal time: 10:00 Condom Cath placed during this visit: no Results - Labs CBC & Chem 7: 03/25/18 13:15 03/29/18 06:19 Assessment and Plan - Plan Status post posterior cervical C2, C3, C4, C5 and C6 autograft fusion -C2-6 decompressive laminectomy -C3-6 lateral mass/facet segmental fixation Repeat imaging 03/23 C-spine revealed status post laminectomy from C2 through C6 with postsurgical changes causing increasing posterior epidural effacement and spinal stenosis. There is worsening spinal cord compression especially at the C2 -3 and C3-4 level. MRI C Spine - status post laminectomy from C2 through C6 with postsurgical changes causing increasing posterior epidural effacement and spinal stenosis. There is worsening spinal cord compression especially at the C2-3 and C3-4 level. 10 mm T2 hypointense structure in the posterior epidural space at C2-3 which may represent a bony fragment. Posterior subcutaneous fluid collection at the C6 level characteristic of a small seroma or resolving hematoma. Persistent large bony bars characteristic of disc osteophyte complexes at C2-3 and C3-[address] Bueno also reviewed the MRI. Patient underwent evacuation of cervical hematoma 03/25. New left side numbness 03/27, MRI cervical spine ordered. - Acetaminophen 650 p.o. every 4 hours as needed fever - Hydrocodone/acetaminophen 10/325 1-2 tablet every 4 hours as needed pain 1 through 10 - Morphine sulfate 4 mg IV every 4 hours as needed breakthrough pain - physical/ occupational therapy. Essential hypertension - Continue amlodipine 5 mg daily and atenolol 25 mg by mouth daily Hypoalbuminemia - ADAT. - Pantoprazole for GI prophylaxis - Docusate sodium/senna 1 tablet twice daily for bowel regimen Mata catheter removed 03/21. - continue condom cath. History of renal cell carcinoma status post right nephrectomy Acute on chronic kidney disease stage IIIa - Stable trend of creatinine noted. Follow BMP. DVT -SCD/pharmacological prophylaxis when okay with neurosurgery
[2018-03-30] MEDS: Sod Chloride 0.9% Inj 1,000 ML IV.SIG SCH (15:10)
--- NOTE | 2018-03-30 17:10 | P.PNNS ---
Subjective Interval history: Patient is asleep when seen but awakens to voice. After that he is alert. He does report some pain to the posterior neck and continues to have numbness down both upper extremities and the right lower. He does have right side weakness but feels he is getting better. He reports that the is able to lift the right upper extremity off the bed today but could not yesterday. <Jaylen Powers E - Last Filed: 03/30/18 17:17> Physical Exam Vital signs: Vital Signs 03/29/18 19:58 03/29/18 23:59 03/30/18 04:11 Temperature 99.4 F 100.7 F H 98.5 F Pulse Rate 85 113 H 97 H Respiratory Rate 18 18 18 Blood Pressure 113/62 124/68 108/63 Pulse Oximetry 98 96 97 03/30/18 08:00 03/30/18 08:48 03/30/18 12:00 Temperature 98.9 F 99.0 F Pulse Rate 99 H 93 H Respiratory Rate 18 Blood Pressure 137/75 112/65 Pulse Oximetry 95 95 95 Intake & Output 03/29/18 03/30/18 03/30/18 18:59 06:59 18:59 Intake Total 480 / 480 480 / 480 Output Total 1000 / 1000 950 / 950 Balance -520 / -520 -470 / -470 Weight 75.7 kg Intake: Oral 480 / 480 480 / 480 Output: Urine Amount (Catheter) 1000 / 1000 950 / 950 Condom 1000 / 1000 950 / 950 Other: Date of Last Bowel Movement 03/28/18 # Bowel Movements 0 Narrative: GENERAL: The patient is asleep in bed but awakens to voice. His affect is normal & he readily interacts. He is not in any apparent distress. HEENT: Normocephalic, atraumatic. NECK: [place] J cervical collar in place. Midline cervical spine/surgical incision mildly TTP, dressing intact. No JVD. Trachea midline. MUSCULOSKELETAL: Moves all extremities to command w/varying degrees of weakness. No evident clubbing or deformity. NEUROLOGICAL: AAOx3. Speech clear & appropriate. Follows simple commands w/o difficulty. Sensation is decreased to light touch to BUE & RLE but intact to LLE. Motor strength: LUE: Deltoid 4 to 4+/5, biceps 4 to 4+/5, triceps 3 to 3+/5, wrist flexors & extensors 4 to 4+/5, hand intrinsics & extensor digitorum 2 to 2+/5. RUE: Deltoid 3+ to 4/5, biceps 4/5, triceps 3/5, wrist flexors 3+ to 4/5 & extensors 2+ to3/5, hand intrinsics & extensor digitorum 2/5. LLE: Iliopsoas 4 to 4+/5, hamstring 4 to 4+/5, quadriceps 3+ to 4/5, tibialis anterior 3+/5, gastrocsoleus 3/5, extensor hallucis longus 3/5. RLE: Essentially 2/5 to all major flexion & extension muscle groups. - Urinary Catheter Management Indwelling Urethral Catheter Cath placed during this visit: yes, but has since been removed by the nurse Reason for continuing: Other continuation reason Insertion date: 03/25/18 Insertion time: 10:23 Removal date: 03/21/18 Removal time: 10:00 Condom Cath placed during this visit: no <Jaylen Powers E - Last Filed: 03/30/18 17:17> Vital signs: Vital Signs 03/31/18 17:39 03/31/18 18:55 03/31/18 19:00 Temperature 98.4 F Pulse Rate 89 Respiratory Rate 18 18 18 Blood Pressure 107/68 Pulse Oximetry 96 03/31/18 21:53 03/31/18 22:23 04/01/18 00:20 Temperature 98.9 F Pulse Rate 97 H Respiratory Rate 18 18 18 Blood Pressure 132/79 Pulse Oximetry 97 04/01/18 01:09 04/01/18 03:35 04/01/18 08:00 Temperature 98.9 F 98.6 F Pulse Rate 88 88 Respiratory Rate 18 18 20 Blood Pressure 110/59 L 110/63 Pulse Oximetry 96 95 04/01/18 12:00 04/01/18 12:43 Temperature 98.1 F Pulse Rate 75 Respiratory Rate 15 Blood Pressure 105/62 Pulse Oximetry 97 Intake & Output 03/31/18 04/01/18 04/01/18 18:59 06:59 18:59 Intake Total 860 / 860 480 / 480 Output Total 1200 / 1200 1000 / 1000 Balance -340 / -340 -520 / -520 Weight 73.8 kg Intake: Oral 860 / 860 480 / 480 Output: Urine 1200 / 1200 Urine Amount (Catheter) 1000 / 1000 Condom 1000 / 1000 Other: Date of Last Bowel Movement 03/31/18 04/01/18 # Bowel Movements 2 1 - Urinary Catheter Management Indwelling Urethral Catheter Cath placed during this visit: no Condom Cath placed during this visit: no <AfricaCade Jeffrey - Last Filed: 04/01/18 16:30> Assessment and Plan - Plan Impression: S/p redo cervical laminectomy for evacuation of postoperative hematoma Cervical myelopathy Patient doing well. He is able to move all extremities to varying degrees. Some improvement in muscle strength to RUE, o/w stable to others. Sensation improved to LLE but w/o change to others. MRI cervical spine : 1. On these noncontrast images I don't clearly see an abscess. 2. Persistent nonspecific marrow signal heterogeneity. There is also persistent heterogeneity of the intervertebral discs, especially see/C5 but also C3/C4 and C5/C6. 3. Central and right paracentral disc osteophyte complexes again seen at C2/C3 and C3/C4 with spinal stenosis. 4. Resolved gas bubbles and/or bone fragments. Plan: Cont [place] collar at all times, PT, OT, rehab efforts, Try for discharge to [place] per patient request Cont daily dressing changes and daily wound monitoring, <Jaylen Powers - Last Filed: 03/30/18 17:17> - Assessment (1) H/O excision of lamina of cervical vertebra for decompression of spinal cord Code(s): Z98.890 - Other specified postprocedural states Status: Acute (2) Cervical stenosis of spinal canal Code(s): M48.02 - Spinal stenosis, cervical region Status: Acute (3) Cervical disc disease with myelopathy Code(s): M50.00 - Cervical disc disorder with myelopathy, unspecified cervical region Status: Acute (4) Postoperative hematoma Status: Acute - Attending Attestation The exam, history, and the medical decision-making described in the above note were completed with the assistance of the mid-level provider. I reviewed and agree with the findings presented. I attest that I had a [id number] encounter with the patient on the same day, and personally performed and documented my assessment and findings in the medical record. Stable exam. Await placement <Cade Leger - Last Filed: 04/01/18 16:30>
[2018-03-31 07:33] LABS: Hematocrit 34.1 % (39.0-51.0); Mean Corpuscular HGB Conc 32.2 % (32.0-36.0); Mean Corpuscular Hemoglobin 27.6 pg (27.0-34.0); Mean Corpuscular Volume 85.7 fL (80.0-100.0); Mean Platelet Volume 8.1 fL (7.0-11.0); Platelet Count 393 th/mm3 (150-450); Red Blood Count 3.98 mil/mm3 (4.50-5.90); White Blood Count 16.4 th/mm3 (4.0-11.0)
[2018-03-31 08:03] LABS: Calcium 9.1 mg/dL (8.5-10.1); Potassium 4.9 meq/L (3.5-5.1)
[2018-03-31] MEDS: Senna/Docusate Sodium 8.6/50 MG Tablet PO SCH ×2 (08:31→21:58)
[2018-03-31] MEDS: Atenolol 25 MG Tablet PO SCH (08:31)
[2018-03-31] MEDS: Polyethylene Glycol 3350 17 GM Packet PO SCH (08:34)
[2018-03-31] MEDS ORDERED: Bisacodyl 10 MG Supp RECTAL ONE (09:08)
--- NOTE | 2018-03-31 09:13 | P.PNIM ---
Subjective Interval history: The patient said he made a little bit of a mess with breakfast. He said his weakness was getting better. He said he has a slight cough. He says he does not like the laxatives and would like to have a suppository. Discussed with nursing. Physical Exam Vital signs: Vital Signs 03/30/18 12:00 03/30/18 16:00 03/30/18 18:30 Temperature 99.0 F 100.3 F H Pulse Rate 93 H 98 H Respiratory Rate 18 18 Blood Pressure 112/65 128/72 Pulse Oximetry 95 94 L 95 03/30/18 20:00 03/31/18 00:00 03/31/18 04:00 Temperature 99.1 F 98.6 F 98.9 F Pulse Rate 94 H 87 81 Respiratory Rate 17 17 18 Blood Pressure 117/62 103/63 121/72 Pulse Oximetry 96 96 97 03/31/18 08:34 Temperature Pulse Rate Respiratory Rate 18 Blood Pressure Pulse Oximetry Intake & Output 03/30/18 03/31/18 03/31/18 18:59 06:59 18:59 Intake Total 830 / 830 Output Total 1550 / 1550 1000 / 1000 Balance -1550 / -1550 -170 / -170 Weight 73.8 kg Intake: Oral 830 / 830 Output: Urine 1000 / 1000 Urine Amount (Catheter) 1550 / 1550 Indwelling Urethral Catheter 1550 / 1550 Other: # Bowel Movements 1 Narrative: GENERAL: No acute distress SKIN: Warm and dry. HEAD: Atraumatic. Normocephalic. EYES: Pupils equal and round. No conjunctival icterus. No injection or drainage. ENT: No nasal bleeding or discharge. Mucous membranes pink and moist. NECK: Trachea midline. [place] J collar in place, KENA drain. No stridor or obstructive noises. CARDIOVASCULAR: Regular rate and rhythm. S1, S2. No S4. No murmur. No JVD RESPIRATORY: No accessory muscle use. Clear to auscultation. Breath sounds equal bilaterally. Comfortable respiratory pattern. GASTROINTESTINAL: Abdomen soft, non-tender, nondistended. No guarding, bowel sounds active. MUSCULOSKELETAL: Extremities without clubbing, cyanosis, or edema. Warm, well- perfused NEUROLOGICAL: Awake and alert. Right upper extremity 3+ out of 5. 3 out of 5 right lower extremity. Left upper and lower extremity 4 out of 5 no sensation deficits. Conversant. PSYCHIATRIC: Appropriate mood and affect; insight and judgment normal. Alert, cooperative. - Urinary Catheter Management Indwelling Urethral Catheter Cath placed during this visit: yes, but has since been removed by the nurse Reason for continuing: Other continuation reason Insertion date: 03/25/18 Insertion time: 10:23 Removal date: 03/21/18 Removal time: 10:00 Condom Cath placed during this visit: no Results - Labs CBC & Chem 7: 03/31/18 06:42 03/31/18 06:42 Laboratory Results - last 24 hr 03/31/18 03/31/18 06:42 06:42 WBC 16.4 H RBC 3.98 L Hgb 11.0 L Hct 34.1 L MCV 85.7 MCH 27.6 MCHC 32.2 RDW 14.0 Plt Count 393 D MPV 8.1 Sodium 137 Potassium 4.9 Chloride 100 Carbon Dioxide 26.0 Anion Gap 11 BUN 26 H Creatinine 1.79 H Estimated GFR 47 L Random Glucose 95 Calcium 9.1 Assessment and Plan - Plan Status post posterior cervical C2, C3, C4, C5 and C6 autograft fusion -C2-6 decompressive laminectomy -C3-6 lateral mass/facet segmental fixation Repeat imaging 03/23 C-spine revealed status post laminectomy from C2 through C6 with postsurgical changes causing increasing posterior epidural effacement and spinal stenosis. There is worsening spinal cord compression especially at the C2 -3 and C3-4 level. MRI C Spine - status post laminectomy from C2 through C6 with postsurgical changes causing increasing posterior epidural effacement and spinal stenosis. There is worsening spinal cord compression especially at the C2-3 and C3-4 level. 10 mm T2 hypointense structure in the posterior epidural space at C2-3 which may represent a bony fragment. Posterior subcutaneous fluid collection at the C6 level characteristic of a small seroma or resolving hematoma. Persistent large bony bars characteristic of disc osteophyte complexes at C2-3 and C3-[address] Bueno also reviewed the MRI. Patient underwent evacuation of cervical hematoma 03/25. New left side numbness 03/27, MRI cervical spine ordered. - pain control with a bowel regimen. - physical/ occupational therapy. Leukocytosis Pt currently afebrile, but has had low grade fevers recently. - mon[place]-culture, CXR. - follow CBC. Constipation The pt says he does well with suppositories. - suppository ordered. Essential hypertension - Continue amlodipine 5 mg daily and atenolol 25 mg by mouth daily. Hypoalbuminemia - ADAT. - Pantoprazole for GI prophylaxis - Docusate sodium/senna 1 tablet twice daily for bowel regimen Mata catheter removed 03/21. - continue condom cath. History of renal cell carcinoma status post right nephrectomy Acute on chronic kidney disease stage IIIa - Stable trend of creatinine noted. Follow BMP. DVT -SCD/pharmacological prophylaxis when okay with neurosurgery
--- NOTE | 2018-03-31 10:09 | XR ---
EXAM DATE: 03/31/2018 9:55 AM EDT AGE/SEX: 62 years / Male INDICATIONS: Pneumonia. CLINICAL DATA: This is the patient's subsequent encounter. Patient reports that signs and symptoms h ave been present for 2 weeks and indicates a pain score of 0/10. MEDICAL/SURGICAL HISTORY: . Renal carcinoma. . Right nephrectomy COMPARISON: [facility] – [place], CHEST 1V SINGLE AP, 03/26/2018. . FINDINGS: AP portable upright view of the chest demonstrates stable elevation of the left hemidiaphragm with vo lume loss within the left hemithorax. The lungs are otherwise clear without evidence of visible airsp auedlia consolidation. There is a rounded opacity identified overlying the mediastinal silhouette which m ay reflect a hiatal hernia or paraesophageal hernia. Heart size is normal. Pulmonary vasculature is n ormal. CONCLUSION: Persistent volume loss identified within the left hemithorax with slight elevation of the left hemidi aphragm. Persistent rounded opacity overlying the middle mediastinum which may reflect presence of a hiatal hernia. Recommend correlation with upright PA lateral views when clinically able. Electronically signed by: Padmini Mcmillan MD 03/31/2018 10:07 AM EDT
[2018-03-31] MEDS: Sod Chloride 0.9% Inj 1,000 ML IV.SIG SCH (10:19)
[2018-03-31] MEDS: amLODIPine 5 MG Tablet PO SCH (11:56)
--- NOTE | 2018-03-31 18:19 | P.PNNS ---
Subjective Interval history: The patient is wake and watching basketball on the TV. He denies any neck pain. He does complain of numbness to all extremities. He feels he is a little stronger today than yesterday. Upon evaluation the patient is essentially stable in his exam with some mild improvement to the right upper. <Jaylen Powers E - Last Filed: 03/31/18 18:04> Physical Exam Vital signs: Vital Signs 03/30/18 18:30 03/30/18 20:00 03/31/18 00:00 Temperature 99.1 F 98.6 F Pulse Rate 94 H 87 Respiratory Rate 17 17 Blood Pressure 117/62 103/63 Pulse Oximetry 95 96 96 03/31/18 04:00 03/31/18 08:00 03/31/18 08:34 Temperature 98.9 F 98.9 F Pulse Rate 81 91 H Respiratory Rate 18 19 18 Blood Pressure 121/72 108/55 L Pulse Oximetry 97 96 03/31/18 10:38 03/31/18 11:58 03/31/18 12:00 Temperature 98.9 F Pulse Rate 96 H Respiratory Rate 18 19 Blood Pressure 127/81 Pulse Oximetry 96 96 03/31/18 16:00 03/31/18 17:39 Temperature 98.1 F Pulse Rate 105 H Respiratory Rate 19 18 Blood Pressure 130/67 Pulse Oximetry 94 L Intake & Output 03/30/18 03/31/18 03/31/18 18:59 06:59 18:59 Intake Total 830 / 830 Output Total 1550 / 1550 1000 / 1000 Balance -1550 / -1550 -170 / -170 Weight 73.8 kg Intake: Oral 830 / 830 Output: Urine 1000 / 1000 Urine Amount (Catheter) 1550 / 1550 Indwelling Urethral Catheter 1550 / 1550 Other: # Bowel Movements 1 Narrative: GENERAL: The patient is awake in bed watching TV. His affect is normal & he readily interacts. He is not in any apparent distress. HEENT: Normocephalic, atraumatic. NECK: [place] cervical collar in place. Midline cervical spine/surgical incision minimally TTP, dressing intact. No JVD. Trachea midline. MUSCULOSKELETAL: Moves all extremities to command w/varying degrees of weakness. No evident clubbing or deformity. NEUROLOGICAL: AAOx3. Speech clear & appropriate. Follows simple commands w/o difficulty. Sensation is decreased to light touch to all extremities. Motor strength: LUE: Deltoid 4 to 4+/5, biceps 4 to 4+/5, triceps 3+ to 4/5, wrist flexors & extensors 4 to 4+/5, hand intrinsics & extensor digitorum 2 to 2+/5. RUE: Deltoid 4/5, biceps 4 to 4+/5, triceps 3/5, wrist flexors 3+ to 4/5 & extensors 2+ to3/5, hand intrinsics & extensor digitorum 2/5. LLE: Iliopsoas 4 to 4+/5, hamstring 4 to 4+/5, quadriceps 3+ to 4/5, tibialis anterior 3+/5, gastrocsoleus 3/5, extensor hallucis longus 3/5. RLE: Essentially 2/5 to all major flexion & extension muscle groups. - Urinary Catheter Management Indwelling Urethral Catheter Cath placed during this visit: yes, but has since been removed by the nurse Reason for continuing: Other continuation reason Insertion date: 03/25/18 Insertion time: 10:23 Removal date: 03/21/18 Removal time: 10:00 Condom Cath placed during this visit: no <Jaylen Powers E - Last Filed: 03/31/18 18:04> Vital signs: Vital Signs 03/31/18 17:39 03/31/18 18:55 03/31/18 19:00 Temperature 98.4 F Pulse Rate 89 Respiratory Rate 18 18 18 Blood Pressure 107/68 Pulse Oximetry 96 03/31/18 21:53 03/31/18 22:23 04/01/18 00:20 Temperature 98.9 F Pulse Rate 97 H Respiratory Rate 18 18 18 Blood Pressure 132/79 Pulse Oximetry 97 04/01/18 01:09 04/01/18 03:35 04/01/18 08:00 Temperature 98.9 F 98.6 F Pulse Rate 88 88 Respiratory Rate 18 18 20 Blood Pressure 110/59 L 110/63 Pulse Oximetry 96 95 04/01/18 12:00 04/01/18 12:43 Temperature 98.1 F Pulse Rate 75 Respiratory Rate 15 Blood Pressure 105/62 Pulse Oximetry 97 Intake & Output 07/14/18 07/15/18 07/15/18 18:59 06:59 18:59 Intake Total 860 / 860 480 / 480 Output Total 1200 / 1200 1000 / 1000 Balance -340 / -340 -520 / -520 Weight 73.8 kg Intake: Oral 860 / 860 480 / 480 Output: Urine 1200 / 1200 Urine Amount (Catheter) 1000 / 1000 Condom 1000 / 1000 Other: Date of Last Bowel Movement 03/31/18 04/01/18 # Bowel Movements 2 1 - Urinary Catheter Management Indwelling Urethral Catheter Cath placed during this visit: no Condom Cath placed during this visit: no <Cade Leger - Last Filed: 04/01/18 16:30> Assessment and Plan - Plan Impression: S/p redo cervical laminectomy for evacuation of postoperative hematoma Cervical myelopathy Patient continues to do well. He is able to move all extremities to varying degrees. Essentially stable muscle strength. Sensation decreased to all extremities. MRI cervical spine : 1. On these noncontrast images I don't clearly see an abscess. 2. Persistent nonspecific marrow signal heterogeneity. There is also persistent heterogeneity of the intervertebral discs, especially see/C5 but also C3/C4 and C5/C6. 3. Central and right paracentral disc osteophyte complexes again seen at C2/C3 and C3/C4 with spinal stenosis. 4. Resolved gas bubbles and/or bone fragments. Plan: Medical management per Hospitalist. Cont [place] collar at all times. PT, OT, rehab efforts. Cont daily dressing changes and daily wound monitoring. Accepted at [facility] for further nursing care and rehab, discharge order in, awaiting bed. <Jaylen Powers - Last Filed: 03/31/18 18:04> - Assessment (1) H/O excision of lamina of cervical vertebra for decompression of spinal cord Code(s): Z98.890 - Other specified postprocedural states Status: Acute (2) Cervical stenosis of spinal canal Code(s): M48.02 - Spinal stenosis, cervical region Status: Acute (3) Cervical disc disease with myelopathy Code(s): M50.00 - Cervical disc disorder with myelopathy, unspecified cervical region Status: Acute (4) Postoperative hematoma Status: Acute - Attending Attestation The exam, history, and the medical decision-making described in the above note were completed with the assistance of the mid-level provider. I reviewed and agree with the findings presented. I attest that I had a [id number] encounter with the patient on the same day, and personally performed and documented my assessment and findings in the medical record. <Cade Leger - Last Filed: 04/01/18 16:30>
[2018-04-01] MEDS: Polyethylene Glycol 3350 17 GM Packet PO SCH ×3 (00:45→20:17)
[2018-04-01 07:29] LABS: Hematocrit 34.7 % (39.0-51.0); Hemoglobin 11.1 gm/dL (13.0-17.0); Mean Corpuscular HGB Conc 31.8 % (32.0-36.0); Mean Corpuscular Hemoglobin 27.5 pg (27.0-34.0); Mean Corpuscular Volume 86.3 fL (80.0-100.0); Mean Platelet Volume 8.1 fL (7.0-11.0); Platelet Count 397 th/mm3 (150-450); Red Blood Count 4.03 mil/mm3 (4.50-5.90); Red Cell Distribution Width 14.4 % (11.6-17.2); White Blood Count 12.5 th/mm3 (4.0-11.0)
[2018-04-01 07:50] LABS: Calcium 9.1 mg/dL (8.5-10.1); Carbon Dioxide 25.8 meq/L (21.0-32.0); Potassium 4.7 meq/L (3.5-5.1)
[2018-04-01] MEDS: Senna/Docusate Sodium 8.6/50 MG Tablet PO SCH ×2 (08:18→20:17)
[2018-04-01] MEDS: Atenolol 25 MG Tablet PO SCH (08:18)
[2018-04-01] MEDS: amLODIPine 5 MG Tablet PO SCH (08:18)
[2018-04-01] MEDS: Sod Chloride 0.9% Inj 1,000 ML IV.SIG SCH (08:19)
[2018-04-01 09:20] LABS: Eosinophils 2 % (0-4); Lymphocytes 7 % (9-44); Monocytes 13 % (0-8)
[2018-04-01 09:21] LABS: Platelet Estimate Normal (Normal); Platelet Morphology Normal (Normal); Toxic Vacuolation Present
--- NOTE | 2018-04-01 10:38 | P.PNIM ---
Subjective Interval history: The patient stated that he does not like to have a regular diet because it predisposes him to gout. He thinks he is having a flare around his left ankle. Otherwise he has no acute complaints. Physical Exam Vital signs: Vital Signs 03/31/18 10:38 03/31/18 11:58 03/31/18 12:00 Temperature 98.9 F Pulse Rate 96 H Respiratory Rate 18 19 Blood Pressure 127/81 Pulse Oximetry 96 96 03/31/18 16:00 03/31/18 17:39 03/31/18 18:55 Temperature 98.1 F Pulse Rate 105 H Respiratory Rate 19 18 18 Blood Pressure 130/67 Pulse Oximetry 94 L 03/31/18 19:00 03/31/18 21:53 03/31/18 22:23 Temperature 98.4 F Pulse Rate 89 Respiratory Rate 18 18 18 Blood Pressure 107/68 Pulse Oximetry 96 04/01/18 00:20 04/01/18 01:09 04/01/18 03:35 Temperature 98.9 F 98.9 F Pulse Rate 97 H 88 Respiratory Rate 18 18 18 Blood Pressure 132/79 110/59 L Pulse Oximetry 97 96 04/01/18 08:00 Temperature 98.6 F Pulse Rate 88 Respiratory Rate 20 Blood Pressure 110/63 Pulse Oximetry 95 Intake & Output 03/31/18 04/01/18 04/01/18 18:59 06:59 18:59 Intake Total 860 / 860 480 / 480 Output Total 1200 / 1200 1000 / 1000 Balance -340 / -340 -520 / -520 Weight 73.8 kg Intake: Oral 860 / 860 480 / 480 Output: Urine 1200 / 1200 Urine Amount (Catheter) 1000 / 1000 Condom 1000 / 1000 Other: Date of Last Bowel Movement 03/31/18 # Bowel Movements 2 1 Narrative: GENERAL: No acute distress SKIN: Warm and dry. HEAD: Atraumatic. Normocephalic. EYES: Pupils equal and round. No conjunctival icterus. No injection or drainage. ENT: No nasal bleeding or discharge. Mucous membranes pink and moist. NECK: Trachea midline. [place] J collar in place, KENA drain. No stridor or obstructive noises. CARDIOVASCULAR: Regular rate and rhythm. S1, S2. No S4. No murmur. No JVD RESPIRATORY: No accessory muscle use. Clear to auscultation. Breath sounds equal bilaterally. Comfortable respiratory pattern. GASTROINTESTINAL: Abdomen soft, non-tender, nondistended. No guarding, bowel sounds active. MUSCULOSKELETAL: Extremities without clubbing, cyanosis, or edema. Warm, well- perfused. Mild TTP of left ankle. NEUROLOGICAL: Awake and alert. Right upper extremity 3+ out of 5. 3 out of 5 right lower extremity. Left upper and lower extremity 4 out of 5 no sensation deficits. Conversant. PSYCHIATRIC: Appropriate mood and affect; insight and judgment normal. Alert, cooperative. - Urinary Catheter Management Indwelling Urethral Catheter Cath placed during this visit: yes, but has since been removed by the nurse Reason for continuing: Other continuation reason Insertion date: 03/25/18 Insertion time: 10:23 Removal date: 03/21/18 Removal time: 10:00 Condom Cath placed during this visit: no Results - Labs CBC & Chem 7: 04/01/18 06:13 04/01/18 06:13 Laboratory Results - last 24 hr 04/01/18 04/01/18 06:13 06:13 WBC 12.5 H RBC 4.03 L Hgb 11.1 L Hct 34.7 L MCV 86.3 MCH 27.5 MCHC 31.8 L RDW 14.4 Plt Count 397 MPV 8.1 Prelim Diff (Auto) Manual diff required WBC Differential Manual diff final Seg Neuts % (Manual) 70 Band Neuts % (Manual) 8 H Lymphocytes % (Manual) 7 L Monocytes % (Manual) 13 H Eosinophils % (Manual) 2 Abs Neuts (Manual) 9.8 H Differential Comment . Toxic Vacuolation Present H Platelet Estimate Normal Platelet Morphology Normal Sodium 136 Potassium 4.7 Chloride 98 Carbon Dioxide 25.8 Anion Gap 12 BUN 29 H Creatinine 1.90 H Estimated GFR 44 L Random Glucose 67 L Calcium 9.1 Assessment and Plan - Plan Status post posterior cervical C2, C3, C4, C5 and C6 autograft fusion -C2-6 decompressive laminectomy -C3-6 lateral mass/facet segmental fixation Repeat imaging 03/23 C-spine revealed status post laminectomy from C2 through C6 with postsurgical changes causing increasing posterior epidural effacement and spinal stenosis. There is worsening spinal cord compression especially at the C2 -3 and C3-4 level. MRI C Spine - status post laminectomy from C2 through C6 with postsurgical changes causing increasing posterior epidural effacement and spinal stenosis. There is worsening spinal cord compression especially at the C2-3 and C3-4 level. 10 mm T2 hypointense structure in the posterior epidural space at C2-3 which may represent a bony fragment. Posterior subcutaneous fluid collection at the C6 level characteristic of a small seroma or resolving hematoma. Persistent large bony bars characteristic of disc osteophyte complexes at C2-3 and C3-[address] Bueno also reviewed the MRI. Patient underwent evacuation of cervical hematoma 03/25. New left side numbness 03/27, MRI cervical spine ordered. - pain control with a bowel regimen. - physical/ occupational therapy. Leukocytosis Pt currently afebrile, but has had low grade fevers recently. Improved. - follow CBC as needed. Gout Involving left foot/ankle. - trial of prednisone. Constipation The pt says he does well with suppositories. - suppository ordered. Essential hypertension - Continue amlodipine 5 mg daily and atenolol 25 mg by mouth daily. Hypoalbuminemia - ADAT. - Pantoprazole for GI prophylaxis - Docusate sodium/senna 1 tablet twice daily for bowel regimen Mata catheter removed 03/21. - continue condom cath. History of renal cell carcinoma status post right nephrectomy Acute on chronic kidney disease stage IIIa - Stable trend of creatinine noted. Follow BMP. DVT -SCD/pharmacological prophylaxis when okay with neurosurgery
[2018-04-01] MEDS: predniSONE 20 MG Tablet PO SCH (12:38)
--- NOTE | 2018-04-01 16:44 | P.PNNS ---
Subjective Interval history: Postoperative C2-6 laminectomy and fusion. No new complaints. Mild to moderate intermittent neck pain. Physical Exam Vital signs: Vital Signs 03/31/18 17:39 03/31/18 18:55 03/31/18 19:00 Temperature 98.4 F Pulse Rate 89 Respiratory Rate 18 18 18 Blood Pressure 107/68 Pulse Oximetry 96 03/31/18 21:53 03/31/18 22:23 04/01/18 00:20 Temperature 98.9 F Pulse Rate 97 H Respiratory Rate 18 18 18 Blood Pressure 132/79 Pulse Oximetry 97 04/01/18 01:09 04/01/18 03:35 04/01/18 08:00 Temperature 98.9 F 98.6 F Pulse Rate 88 88 Respiratory Rate 18 18 20 Blood Pressure 110/59 L 110/63 Pulse Oximetry 96 95 04/01/18 12:00 04/01/18 12:43 Temperature 98.1 F Pulse Rate 75 Respiratory Rate 15 Blood Pressure 105/62 Pulse Oximetry 97 Intake & Output 03/31/18 04/01/18 04/01/18 18:59 06:59 18:59 Intake Total 860 / 860 480 / 480 Output Total 1200 / 1200 1000 / 1000 Balance -340 / -340 -520 / -520 Weight 73.8 kg Intake: Oral 860 / 860 480 / 480 Output: Urine 1200 / 1200 Urine Amount (Catheter) 1000 / 1000 Condom 1000 / 1000 Other: Date of Last Bowel Movement 03/31/18 04/01/18 # Bowel Movements 2 1 Narrative: Awake and alert Respirations clear and regular Pulse regular Abdomen soft nontender Mild distal lower extremity edema [place] collar in place Dressing dry Oriented 3 Speech slow but clear Strength mostly 2/5 right, 4/5 left upper and lower extremity. - Urinary Catheter Management Indwelling Urethral Catheter Cath placed during this visit: yes, but has since been removed by the nurse Reason for continuing: Other continuation reason Insertion date: 03/25/18 Insertion time: 10:23 Removal date: 03/21/18 Removal time: 10:00 Condom Cath placed during this visit: no Assessment and Plan - Assessment (1) H/O excision of lamina of cervical vertebra for decompression of spinal cord Code(s): Z98.890 - Other specified postprocedural states Status: Acute (2) Cervical stenosis of spinal canal Code(s): M48.02 - Spinal stenosis, cervical region Status: Acute (3) Cervical disc disease with myelopathy Code(s): M50.00 - Cervical disc disorder with myelopathy, unspecified cervical region Status: Acute (4) Postoperative hematoma Status: Acute - Plan Impression: S/p redo cervical laminectomy for evacuation of postoperative hematoma Cervical myelopathy Patient continues to do well. He is able to move all extremities to varying degrees. Essentially stable muscle strength. Sensation decreased to all extremities. MRI cervical spine : 1. On these noncontrast images I don't clearly see an abscess. 2. Persistent nonspecific marrow signal heterogeneity. There is also persistent heterogeneity of the intervertebral discs, especially see/C5 but also C3/C4 and C5/C6. 3. Central and right paracentral disc osteophyte complexes again seen at C2/C3 and C3/C4 with spinal stenosis. 4. Resolved gas bubbles and/or bone fragments. Plan: Medical management per Hospitalist. Cont [place] collar at all times. PT, OT, rehab efforts. Cont daily dressing changes and daily wound monitoring. Accepted at [facility] for further nursing care and rehab, discharge order in, awaiting bed.
[2018-04-02] MEDS: predniSONE 20 MG Tablet PO SCH (08:37)
[2018-04-02] MEDS: Atenolol 25 MG Tablet PO SCH (08:37)
[2018-04-02] MEDS: amLODIPine 5 MG Tablet PO SCH (08:37)
--- NOTE | 2018-04-02 08:48 | P.PNNS ---
Subjective Interval history: 04/02: dc planning to [facility], reports strength continues to improve. no new neurological complaints. Physical Exam Vital signs: Vital Signs 04/01/18 12:00 04/01/18 12:43 04/01/18 16:00 Temperature 98.1 F 97.9 F Pulse Rate 75 72 Respiratory Rate 15 Blood Pressure 105/62 102/66 Pulse Oximetry 97 97 04/01/18 19:28 04/01/18 20:48 04/01/18 23:05 Temperature 97.1 F L 97.3 F L Pulse Rate 73 68 Respiratory Rate 18 18 18 Blood Pressure 114/71 110/66 Pulse Oximetry 97 98 04/02/18 03:00 04/02/18 08:37 Temperature 98.7 F Pulse Rate 65 Respiratory Rate 18 14 Blood Pressure 109/69 Pulse Oximetry 98 Intake & Output 04/01/18 04/02/18 04/02/18 18:59 06:59 18:59 Intake Total 360 / 360 480 / 480 Output Total 800 / 800 Balance -440 / -440 480 / 480 Weight 73.8 kg Intake: Oral 360 / 360 480 / 480 Output: Urine 800 / 800 Other: # Incontinent Voids 3 6 Date of Last Bowel Movement 04/01/18 04/01/18 # Bowel Movements 2 # Incontinent Bowel Movements 3 Narrative: Awake, alert, resting comfortably. Cervical collar in place - Urinary Catheter Management Indwelling Urethral Catheter Cath placed during this visit: yes, but has since been removed by the nurse Reason for continuing: Other continuation reason Insertion date: 03/25/18 Insertion time: 10:23 Removal date: 03/21/18 Removal time: 10:00 Condom Cath placed during this visit: no Assessment and Plan - Assessment (1) H/O excision of lamina of cervical vertebra for decompression of spinal cord Code(s): Z98.890 - Other specified postprocedural states Status: Acute (2) Cervical stenosis of spinal canal Code(s): M48.02 - Spinal stenosis, cervical region Status: Acute (3) Cervical disc disease with myelopathy Code(s): M50.00 - Cervical disc disorder with myelopathy, unspecified cervical region Status: Acute (4) Postoperative hematoma Status: Acute - Plan Impression: S/p redo cervical laminectomy for evacuation of postoperative hematoma Cervical myelopathy Patient continues to do well. He is able to move all extremities to varying degrees. Essentially stable muscle strength. Sensation decreased to all extremities. MRI cervical spine : 1. On these noncontrast images I don't clearly see an abscess. 2. Persistent nonspecific marrow signal heterogeneity. There is also persistent heterogeneity of the intervertebral discs, especially see/C5 but also C3/C4 and C5/C6. 3. Central and right paracentral disc osteophyte complexes again seen at C2/C3 and C3/C4 with spinal stenosis. 4. Resolved gas bubbles and/or bone fragments. Plan: Medical management per Hospitalist. Cont [place] collar at all times. PT, OT, rehab efforts. Cont daily dressing changes and daily wound monitoring. Accepted at [facility] for further nursing care and rehab, discharge order in, awaiting bed.
--- NOTE | 2018-04-02 09:43 | P.PNIM ---
Subjective Interval history: The patient was feeling well. He said he was able to move around his arms and legs better. He said that his pain in his left foot was better and he believes it is from gout. Discussed with case management. Physical Exam Vital signs: Vital Signs 04/01/18 12:00 04/01/18 12:43 04/01/18 16:00 Temperature 98.1 F 97.9 F Pulse Rate 75 72 Respiratory Rate 15 Blood Pressure 105/62 102/66 Pulse Oximetry 97 97 04/01/18 19:28 04/01/18 20:48 04/01/18 23:05 Temperature 97.1 F L 97.3 F L Pulse Rate 73 68 Respiratory Rate 18 18 18 Blood Pressure 114/71 110/66 Pulse Oximetry 97 98 04/02/18 03:00 04/02/18 08:00 04/02/18 08:37 Temperature 98.7 F 97.2 F L Pulse Rate 65 61 Respiratory Rate 18 16 14 Blood Pressure 109/69 109/71 Pulse Oximetry 98 98 Intake & Output 04/01/18 04/02/18 04/02/18 18:59 06:59 18:59 Intake Total 360 / 360 480 / 480 Output Total 800 / 800 Balance -440 / -440 480 / 480 Weight 73.8 kg Intake: Oral 360 / 360 480 / 480 Output: Urine 800 / 800 Other: # Incontinent Voids 3 6 Date of Last Bowel Movement 04/01/18 04/01/18 # Bowel Movements 2 # Incontinent Bowel Movements 3 Narrative: GENERAL: No acute distress SKIN: Warm and dry. HEAD: Atraumatic. Normocephalic. EYES: Pupils equal and round. No conjunctival icterus. No injection or drainage. ENT: No nasal bleeding or discharge. Mucous membranes pink and moist. NECK: Trachea midline. [place] J collar in place, KENA drain. No stridor or obstructive noises. CARDIOVASCULAR: Regular rate and rhythm. S1, S2. No S4. No murmur. No JVD RESPIRATORY: No accessory muscle use. Clear to auscultation. Breath sounds equal bilaterally. Comfortable respiratory pattern. GASTROINTESTINAL: Abdomen soft, non-tender, nondistended. No guarding, bowel sounds active. MUSCULOSKELETAL: Extremities without clubbing, cyanosis, or edema. Warm, well- perfused. NEUROLOGICAL: Awake and alert. Right upper extremity 3 out of 5. 3 out of 5 right lower extremity. Left upper and lower extremity 4 out of 5 no sensation deficits. Conversant. PSYCHIATRIC: Appropriate mood and affect; insight and judgment normal. Alert, cooperative. - Urinary Catheter Management Indwelling Urethral Catheter Cath placed during this visit: yes, but has since been removed by the nurse Reason for continuing: Other continuation reason Insertion date: 03/25/18 Insertion time: 10:23 Removal date: 03/21/18 Removal time: 10:00 Condom Cath placed during this visit: no Results - Labs CBC & Chem 7: 04/01/18 06:13 04/01/18 06:13 Assessment and Plan - Plan Status post posterior cervical C2, C3, C4, C5 and C6 autograft fusion -C2-6 decompressive laminectomy -C3-6 lateral mass/facet segmental fixation Repeat imaging 03/23 C-spine revealed status post laminectomy from C2 through C6 with postsurgical changes causing increasing posterior epidural effacement and spinal stenosis. There is worsening spinal cord compression especially at the C2 -3 and C3-4 level. MRI C Spine - status post laminectomy from C2 through C6 with postsurgical changes causing increasing posterior epidural effacement and spinal stenosis. There is worsening spinal cord compression especially at the C2-3 and C3-4 level. 10 mm T2 hypointense structure in the posterior epidural space at C2-3 which may represent a bony fragment. Posterior subcutaneous fluid collection at the C6 level characteristic of a small seroma or resolving hematoma. Persistent large bony bars characteristic of disc osteophyte complexes at C2-3 and C3-[address] Bueno also reviewed the MRI. Patient underwent evacuation of cervical hematoma 03/25. New left side numbness 03/27, MRI cervical spine ordered. - pain control with a bowel regimen. - physical/ occupational therapy. Leukocytosis Pt currently afebrile, but has had low grade fevers recently. Improved. - follow CBC as needed. Gout Involving left foot/ankle. - trial of prednisone. Improved. Will d/c with 3 days of prednisone. Constipation The pt says he does well with suppositories. - suppository ordered. Essential hypertension - Continue amlodipine 5 mg daily and atenolol 25 mg by mouth daily. Hypoalbuminemia - ADAT. - Pantoprazole for GI prophylaxis - Docusate sodium/senna 1 tablet twice daily for bowel regimen [place]ata catheter removed 03/21. - continue condom cath. History of renal cell carcinoma status post right nephrectomy Acute on chronic kidney disease stage IIIa - Stable trend of creatinine noted. Follow BMP. DVT -SCD/pharmacological prophylaxis when okay with neurosurgery
[2018-04-02 10:59] LABS: Calcium 8.8 mg/dL (8.5-10.1); Potassium 4.5 meq/L (3.5-5.1)
--- NOTE | 2018-04-22 15:52 | P.DS ---
Date of admission: 03/20/18 06:22 Primary care physician: Moose Ely MD Attending physician on discharge: Gurjit Bueno Anticipated date of discharge: 04/02/18 Brief History from admission: This is a 62-year-old male who presented to our office for an evaluation of neck pain with weakness in the right upper extremity. He was previously seen on 02/06/18 for evaluation of low back pain also. He also had complaints of neck pain at that time and stated he had a previous MRI of the cervical spine which she was informed was okay by different office. We reviewed the MRI from January 15, 2015 which revealed severe spinal stenosis. We requested the patient obtain a new MRI of the cervical spine and follow-up to discuss. He complains of stiffness and popping in his neck for the last 4 months. He complains of right arm pain down the anterior aspect and into the biceps and forearm and first through third fingers on the right side. He also has numbness involving the first through the third fingers. He has been using a cane to ambulate around the house for the last year. When he has to walk any distance he uses crutches because he states he feels off balance. He denies any urinary incontinence or frequency however he has previously complained of urinary urgency which was new. He has not been to pain management or physical therapy for his neck however he has had pain management and physical therapy for his low back. He states his right arm pain and numbness has been going on for 5 years. He also complains of poor coordination in the right hand and his right upper extremity feels weaker than the left. He states he is right-handed. DS: Diagnosis - Discharge Diagnosis (1) Cervical stenosis of spinal canal Status: Acute (2) Cervical spondylosis with myelopathy and radiculopathy Status: Acute (3) Cervical disc disease with myelopathy Status: Acute (4) Degeneration of cervical intervertebral disc Status: Acute DS: Summary Hospital Course: Patient underwent a posterior cervical C2, C3, C4, C5, and C6 autograft fusion with C2 through C6 decompressive laminectomy and C3 through C6 lateral mass/ facet segmental fixation by Cornelius Rubin MD on 03/20/18. Postoperatively PT and OT were consulted and his activity status was increased. He initially was doing well postoperatively for the first 2 days however on 03/23/18 he started to report weakness in the right upper extremity in addition to pain at the incision site. An MRI of the cervical spine was obtained. MRI cervical impression read by radiologist revealed. 1. Status post laminectomy from C2 through C6 with postsurgical changes causing increasing posterior epidural effacement and spinal stenosis. There is worsening spinal cord compression especially at the C2-3 and C3-4 level. 2. 10 mm T2 hypointense structure in the posterior epidural space at C2-3 which may represent a bony fragment. 3. Posterior subcutaneous fluid collection at the C6 level characteristic of a small seroma or resolving hematoma. 4. Persistent large bony bars characteristic of disc osteophyte complexes at C2 -3 and C3-[address] Ray reviewed and discussed the MRI results with the patient and his . He was transferred to the ICU for closer monitoring. Critical care was consulted for assistance in medical management while in the ICU. Dr. Ray had recommended surgery but pt and wanted to wait to see if it improved. Dr. Ray also discussed with other family members per the patients request and again they wanted to wait on exploration. On 03/25/18 pt reported increase in his pain and weakness and agreed to proceed with surgery. Post operatively pt reported his strength was improving. On 03/[address] Leger some numbness in the left upper extremity more than the left leg which was new. A post op MRI of the Cervical spine was obtained by Dr. Leger. The radiologist impression was the following. 1. On these noncontrast images I don't clearly see an abscess. 2. Persistent nonspecific marrow signal heterogeneity. There is also persistent heterogeneity of the intervertebral discs, especially see/C5 but also C3/C4 and C5/C6. 3. Central and right paracentral disc osteophyte complexes again seen at C2/C3 and C3/C4 with spinal stenosis. 4. Resolved gas bubbles and/or bone fragments. The patients strength continued to improve over the following several days with PT and OT in the hospital and he was discharged to a SNF in stable condition. - Time Spent with Patient Total time spent providing and/or coordinating discharge services: Less than 30 minutes - Quality: VTE Deep Vein Thrombosis/Pulmonary Embolism Present on Admission: No Results Procedures completed during hospitalization: 1. Posterior cervical C2, C3, C4, C5, and C6 autograft fusion; C2-C6 decompressive laminectomy; C3-C6 lateral mass/facet segmental fixation by Cornelius Rubin MD on 03/20/18. 2. Re-exploration of posterior cervical wound, evacuation of hematoma, placement of epidural drain on 03/25/18 by Brandon Ray MD. - Impressions ITS Impressions Cervical Spine X-Ray 03/20/18 00:00 CONCLUSION: Postsurgical changes as above. Cervical Spine MRI 03/27/18 00:00 CONCLUSION: 1. On these noncontrast images I don't clearly see an abscess. 2. Persistent nonspecific marrow signal heterogeneity. There is also persistent heterogeneity of the intervertebral discs, especially see/C5 but also C3/C4 and C5/C6. 3. Central and right paracentral disc osteophyte complexes again seen at C2/C3 and C3/C4 with spinal stenosis. 4. Resolved gas bubbles and/or bone fragments. Chest X-Ray 03/31/18 00:00 CONCLUSION: Persistent volume loss identified within the left hemithorax with slight elevation of the left hemidiaphragm. Persistent rounded opacity overlying the middle mediastinum which may reflect presence of a hiatal hernia. Recommend correlation with upright PA lateral views when clinically able. Discharge Plan - Discharge Disposition Patient Disposition: Discharge to SNF - Discharge Condition Condition: Good - Discharge Order Discharge Orders: Discharge Order (Routine); Ordered 03/31/18 Ordered By: Cornelius Rubin - Discharge Details Anticipated Discharge Date: 03/31/18 - Physicians Team Primary Care Provider: Moose Ely Attending Provider: Cornelius Rubin Other Providers: Cory Ray ; Vineet Funes DO ; Tylor Devi MD - Rxs /Orders / Referrals /Forms Prescriptions: New albuterol sulfate 2.5 mg /3 mL (0.083 %) Solution For Nebulization 2.5 mg NEB Q4HR NEB PRN (Reason: Wheezing) RF: 0 atenolol 25 mg Tablet 25 mg PO DAILY RF: 0 clonidine HCl [Catapres] 0.1 mg Tablet 0.1 mg PO Q6H PRN (Reason: Sys Bp Greater Than 170 Mmhg) RF: 0 cyclobenzaprine 10 mg Tablet 10 mg PO Q8H PRN (Reason: Muscle Spasm) RF: 0 metoprolol tartrate 25 mg Tablet 25 mg PO [employer] RF: 0 Continue amlodipine 5 mg Tablet 5 mg PO DAILY atenolol 25 mg Tablet 25 mg PO DAILY cholecalciferol (vitamin D3) [Vitamin D3] 5,000 unit Tablet 5,000 unit PO DAILY cyanocobalamin (vitamin B-12) [Vitamin B-12] 5,000 mcg Tablet, Sublingual 5,000 mcg SUBLINGUAL DAILY Referrals: Moose Ely MD [Primary Care Provider] - See Instructions Cornelius Rubin MD [NEUROSURGERY] - See Instructions (posterior cervical staple removal in 2 weeks) - Discharge Instructions Patient Printed Instructions: Anterior Cervical Discectomy (DC), Laminectomy ( DC), Cervical Spinal Stenosis (DC), Wainwright J Collar (DC) Additional Instructions: Call Dr. Rubin's office for followup in two weeks for staple removal. call office for appointment.Your Health Problems: Goals to Promote Your Health: * To prevent worsening of your condition * To maintain your health at the optimal level Directions to Meet Your Goals: * Take your medications as prescribed * Follow your dietary instruction * Follow activity as directed * Keep your appointments as scheduled * Take your immunizations and boosters as scheduled * If your symptoms worsen call your PCP * If no PCP go to Urgent Care or Emergency Room Smoking is dangerous to your health. Avoid second hand smoke. You may reach the 24-hour crisis hotline for domestic abuse at . - Post Discharge Care Plan Care Plan Goals: Your Health Problems: Goals to Promote Your Health: * To prevent worsening of your condition * To maintain your health at the optimal level Directions to Meet Your Goals: * Take your medications as prescribed * Follow your dietary instruction * Follow activity as directed * Keep your appointments as scheduled * Take your immunizations and boosters as scheduled * If your symptoms worsen call your PCP * If no PCP go to Urgent Care or Emergency Room Smoking is dangerous to your health. Avoid second hand smoke. You may reach the 24-hour crisis hotline for domestic abuse at .
== END 2018-04-02 12:53 ==
LOC: HSDI 06:22 → N06 17:46 → N03 03-23 22:21 → N06 03-29 15:13
PROVIDERS: ADMIT Neurological Surgery; ATTEND Neurological Surgery
DX: M54.12 Radiculopathy, cervical region; Z85.528 Personal history of other malignant neoplasm of kidney; G89.29 Other chronic pain; G95.29 Other cord compression; G97.61 Postprocedural hematoma of a nervous system organ or structure following a nervous system procedure; M47.12 Other spondylosis with myelopathy, cervical region; I12.9 Hypertensive chronic kidney disease with stage 1 through stage 4 chronic kidney disease, or unspecified chronic kidney disease; G81.91 Hemiplegia, unspecified affecting right dominant side; I25.10 Atherosclerotic heart disease of native coronary artery without angina pectoris; Z90.5 Acquired absence of kidney; M10.9 Gout, unspecified; M25.78 Osteophyte, vertebrae; M50.01 Cervical disc disorder with myelopathy, high cervical region; K59.00 Constipation, unspecified; Y83.8 Other surgical procedures as the cause of abnormal reaction of the patient, or of later complication, without mention of misadventure at the time of the procedure; M48.02 Spinal stenosis, cervical region; N18.3 Chronic kidney disease, stage 3 (moderate); Z96.641 Presence of right artificial hip joint; E88.09 Other disorders of plasma-protein metabolism, not elsewhere classified; Z79.899 Other long term (current) drug therapy; Z77.22 Contact with and (suspected) exposure to environmental tobacco smoke (acute) (chronic)